=== PATIENT | female | born 1950 | race Caucasian/White ===

== ENCOUNTER 2016-12-29 20:07 | Emergency (ER) | payer MEDICARE, MEDICAID ==
[~2016-12-29] VITALS: Ht 160 cm; Wt 60.0 kg
[2016-12-29] MEDS ORDERED: ASPI1CPM PO (20:16)
[2016-12-29] MEDS ORDERED: PROMETHAZINE 25 MG in IV NORMAL SALINE 50ML 50 ML IV PRN (20:30)
[2016-12-29] MEDS ORDERED: PROMETHAZINE 25 MG/ML VIAL IV ONE (20:53)
[2016-12-29] MEDS ORDERED: IV NORMAL SALINE 50ML 50 ML ONE (20:53)
[2016-12-29 20:59] LABS: MEAN CORPUSCULAR HEMOGLOBIN 33 pg (25-35); MEAN CORPUSCULAR VOLUME 93 fL (79-100)
[2016-12-29] MEDS ORDERED: ONDANSETRON PF 4 MG/2 ML VIAL. IV ONE (21:00)
[2016-12-29] MEDS ORDERED: IV NORMAL SALINE 1,000ML 1,000 ML IV SCH (21:00)
[2016-12-29 21:02] LABS: HEMATOCRIT 30.1 % (36.0-47.0); HEMOGLOBIN 10.5 g/dL (12.0-15.5); RED BLOOD COUNT 3.23 x10^6/uL (3.50-5.40); WHITE BLOOD COUNT 9.3 x10^3/uL (4.0-11.0)
[2016-12-29 21:03] LABS: MEAN CORPUSCULAR HGB CONC 35 g/dL (31-37); PLATELET COUNT 414 x10^3/uL (140-400)
[2016-12-29 21:13] LABS: ALBUMIN 2.9 g/dL (3.4-5.0); ALBUMIN/GLOBULIN RATIO 0.8 (1.0-1.7); CALCIUM 9.1 mg/dL (8.5-10.1); CREATININE 1.3 mg/dL (0.6-1.0); GFR 40.7; TOTAL BILIRUBIN 15.5 mg/dL (0.2-1.0); TOTAL PROTEIN 6.7 g/dL (6.4-8.2)
[2016-12-29 21:19] LABS: POTASSIUM 2.9 mmol/L (3.5-5.1)
[2016-12-29 21:36] LABS: % LYMPHS 20 % (24-48); % MONOS 2 % (0-10); % SEGS 78 % (35-66); PLT ESTIMATE ADEQUATE (ADEQUATE)
[2016-12-29] MEDS ORDERED: POTASSIUM CHLORIDE 20 MEQ TABLET.ER. PO ONE (22:00)
--- NOTE | 2016-12-29 22:03 | PHYS DOC ---
General Chief Complaint: ABDOMINAL PAIN Stated Complaint: N/V Time Seen by MD: 20:15 Source: patient Exam Limitations: other (vague historian) Problems: History of Present Illness Initial Comments Pt is 66/F to ED c/o n/v. Pt states that earlier tonight she was playing bingo and developed sudden onset epigastric pain with N/V. States she vomitted many times and called EMS. No travel/bad food exposure, no heavy etoh intake, no known unexplained weight loss. EMS reports approx 500cc emesis on arrival, N/V did settle in ED with zofran/ phenergan. No diarrhea or urinary symptoms, no fever/chills/myalgias. Timing/Duration: 1 hour Severity: severe Modifying Factors: worse with eating, improves with medication Associated Symptoms: diaphoresis, malaise, nausea/vomiting, weakness, other Allergies: Coded Allergies: No Known Drug Allergies (Unverified , 12/29/16) Past Medical History Medical History: other (CVA, CAD) Surgical History: cholecystectomy (heart cath 2014) Social History Smoker: non-smoker Alcohol: none Drugs: none Review of Systems Constitutional: denies chills, diaphoresisdenies fever, malaise Respiratory: denies cough, denies shortness of breath, denies wheezing Cardiovascular: denies chest pain, denies palpitations, denies syncope Gastrointestinal: see HPI Genitourinary: denies discharge, denies dysuria, denies frequency Musculoskeletal: denies back pain, denies joint swelling, denies neck pain Psychiatric/Neurological: denies headache, denies numbness, denies paresthesia Hematologic/Lymphatic: denies blood clots, denies easy bleeding, denies easy bruising Physical Exam General Appearance: severe distress (jaundiced, intractable n/v) Eyes: bilateral eye EOMI, bilateral eye PERRL, bilateral eye scleral icterus Ear, Nose, Throat: hearing grossly normal, normal ENT inspection (dry membranes ), normal pharynx Neck: non-tender, supple Respiratory: normal breath sounds, no respiratory distress Cardiovascular: normal peripheral pulses, regular rate, rhythm Gastrointestinal: normal bowel sounds, soft (mildly distended, generalized TTP without focality no r/g/mass, incidental 5cm diam reducible umbilical hernia) Back: no CVA tenderness, no vertebral tenderness Extremities: non-tender, normal inspection Neurologic/Psychiatric: 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 Acute Hepatitis panel added to labs, CT abd/pel ordered. Pt will have prolonged ED course due to Radiology. PATIENT: ABRIL NAGY ACCOUNT: [id number] : 1950 LOCATION: ER AGE: 66 SEX: F EXAM STATUS: PRE ER ORD. PHYSICIAN: RAD REYEZ DO REASON: N/V, elev LFT's, jaundice PROCEDURE: CT ABDOMEN PELVIS WO CONTRAST PROCEDURE CT abdomen and pelvis without contrast 12/29/2016. HISTORY Elevated liver enzymes and jaundice. Nausea and vomiting. TECHNIQUE Helical noncontrast images were obtained. Exposure: One or more of the following individualized dose reduction techniques were utilized for this exam: 1. Automated exposure control. 2. Adjustment of the mA and/or kV according to patient size. 3. Use of iterative reconstruction technique. COMPARISON FINDINGS The lung bases are clear. There are probably some small liver cysts. The biliary tree is dilated down toward the head of the pancreas. There appears to be abrupt tapering at this level. No cause for obstruction is identified. The spleen appears normal. The kidneys show no significant mass or obstruction. There is probably a small angio Costa lipoma on the right. No adrenal or pancreatic abnormality is identified. There is no apparent retroperitoneal or mesenteric adenopathy. A small fat containing hernia is shown at the emboli kiss. Images through the pelvis show no apparent abnormality of the distal ureters or bladder. No pelvic or inguinal adenopathy is seen. There is no apparent pelvic soft tissue mass or inflammatory process. IMPRESSION Dilated biliary tree showing abrupt caliber change near the head of the pancreas without identified cause for obstruction. Further evaluation with MRI/MRCP may be useful. Electronically signed by: Fernie Robles (Dec 29, 2016 22:49:34) DICTATED AND SIGNED BY: FERNIE ROBLES Jr, MD DATE: 12/29/16 [id number] CC: DARREN WAITE MD; RAD REYEZ DO ~ Pertinent labs: Hb 10.5, Plt 414, d-dimer 0.28, Na 134, K+ 2.9 (40 meq KCL PO in ED), BUN 21, Cr 1.3, AST 146, ALT 179, Alb 2.9, lactic acid 1.9, acute hepatitis panel pending. Pt received morphine, zofran, phenergan, and 1L NS IV in ED. N/V resolved, pt resting comfortably. Agreeable to inpt treatment/transfer to [facility]. IMPRESSIONS: Hepatobiliary obstruction NOS Intractable N/V Hypokalemia Hyperbilirubinemia w/elevated transaminases Hypovolemia Moderate Malnutrition 2331: Pt discussed with Dr Mcneil who accepts telemetry admission for further evaluation and treatment. Departure Time of Disposition: 00:13 Disposition: 05 XFER OTHER Diagnosis: hepatobiliary obstruction, abdominal pain with N/V Condition: STABLE Additional Instructions: EMS transfer to [facility] Dr Mcneil is accepting. RAD REYEZ DO Dec 29, 2016 22:03
--- NOTE | 2016-12-29 22:50 | RAD ---
PROCEDURE CT abdomen and pelvis without contrast 12/29/2016. HISTORY Elevated liver enzymes and jaundice. Nausea and vomiting. TECHNIQUE Helical noncontrast images were obtained. Exposure: One or more of the following individualized dose reduction techniques were utilized for this exam: 1. Automated exposure control. 2. Adjustment of the mA and/or kV according to patient size. 3. Use of iterative reconstruction technique. COMPARISON FINDINGS The lung bases are clear. There are probably some small liver cysts. The biliary tree is dilated down toward the head of the pancreas. There appears to be abrupt tapering at this level. No cause for obstruction is identified. The spleen appears normal. The kidneys show no significant mass or obstruction. There is probably a small angio Costa lipoma on the right. No adrenal or pancreatic abnormality is identified. There is no apparent retroperitoneal or mesenteric adenopathy. A small fat containing hernia is shown at the emboli kiss. Images through the pelvis show no apparent abnormality of the distal ureters or bladder. No pelvic or inguinal adenopathy is seen. There is no apparent pelvic soft tissue mass or inflammatory process. IMPRESSION Dilated biliary tree showing abrupt caliber change near the head of the pancreas without identified cause for obstruction. Further evaluation with MRI/MRCP may be useful. Electronically signed by: Yoan Robles (Dec 29, 2016 22:49:34)
[2016-12-29 23:46] LABS: BARBITURATES NEG (NEG); BENZODIAZEPINES NEG (NEG); CANNABINOIDS NEG (NEG); COCAINE NEG (NEG); METHADONE NEG (NEG); OPIATES NEG (NEG); PHENCYCLIDINE NEG (NEG)
[2016-12-29 23:48] LABS: BACTERIA,URINE MANY /HPF (0-FEW); BILIRUBIN,URINE LARGE (NEG); CLARITY,URINE CLOUDY; COLOR,URINE YELLOW; GLUCOSE,URINE NEG (NEG); NITRITE,URINE NEG (NEG); SQUAMOUS EPITHELIAL CELL,UR FEW /LPF; UROBILINOGEN,URINE 0.2 mg/dL (0.2 mg/dL); WBC,URINE >40 /HPF (0-4)
--- NOTE | 2016-12-29 23:49 | ACF ---
Admission Criteria Forms HYPONATREMIA; HYPERNATREMIA; HYPOKALEMIA; HYPERKALEMIA; HYPOCALCEMIA; HYPERCALCEMIA Clinical Indications for Inpatient Care (Place 'X' for any and all applicable criteria): Ongoing inpatient care may be indicated for ANY ONE of the following [G](1)(2)(3 )(5): [ ]I. Hyponatremia with ANY ONE of the following: [ ]a) Sodium less than 130 mEq/L (mmol/L) (new) (6)(22) [ ]b) Sodium less than 135 mEq/L (mmol/L) with ANY ONE of the following: [ ]i) Severe medical etiology requiring inpatient management (eg, heart failure, hypovolemia) [ ]ii) Altered mental status [ ]iii) Seizures [ ]II. Hypernatremia with ANY ONE of the following: [ ]a) Sodium greater than 155 mEq/L (mmol/L) [ ]b) Sodium greater than 150 mEq/L (mmol/L) with ANY ONE of the following: [ ] i) Altered mental status [ ]ii) Seizures [ ]iii) Severe medical etiology (eg, hypovolemia, diabetes insipidus) [ ]iv) Severe weakness [ ]v) Severe medical etiology (eg, hemolysis, infection, drug overdose) [X]III. Hypokalemia with ANY ONE of the following: [ ]a) Potassium less than 2.5 mEq/L (mmol/L) despite outpatient and emergency treatment [X]b) Potassium less than 3.0 mEq/L (mmol/L) with ANY ONE of the following: [ ]i) Weakness [ ]ii) Cardiac abnormality (eg, arrhythmia, conduction disturbance) [ ]iii) Cardiac ischemia [ ]iv) Ileus [ ]v) Ongoing medical cause requiring inpatient management. ( e.g., acute renal wasting, SIADH) [X]vi) Other severe symptoms [ ] IV. Hyperkalemia with ANY ONE of the following: [ ]a) Potassium greater than 6.5 mEq/L (mmol/L) [ ]b) Potassium greater than 5 mEq/L (mmol/L) with ANY ONE of the following: [ ]i) Severe ECG findings [H] [ ]ii) Acute worsening of renal failure (creatinine greater than 2.5 mg/dL (221 micromoles/L) or significant elevation for age and size) [ ] V. Hypocalcemia with ANY ONE of the following: [ ]a) Calcium less than 7 mg/dL (1.75 mmol/L) despite outpatient and emergency treatment(19) [ ]b) Calcium less than 8 mg/dL (2 mmol/L) with significant symptoms or findings; examples include: [ ]i) Cardiac abnormality (eg, arrhythmia or conduction disturbance) [ ]ii) Altered mental status [ ]iii) Seizures [ ]iv) Breathing difficulty [ ]v) Muscle spasms [ ]. Hypercalcemia with ANY ONE of the following: [ ]a) Calcium greater than 14 mg/dL (3.5 mmol/L) [ ]b) Calcium greater than 12 mg/dL (3 mmol/L) with ANY ONE of the following: [ ]i) Significant dehydration or hypovolemia as indicated by ANY ONE of the following(2): [ ]1. Clinically significant dehydration as indicated by ANY ONE of the following: [ ]A. Acute loss of weight from baseline (5% of body weight in adults, 9% in pediatric patients) [ ]B. Hemodynamic instability [ ]C. Acute renal failure [ ]D. Serum sodium greater than 150 mEq/L (mmol/L) [ ]2) Dehydration that is persistent indicated by ALL of the following: [ ]A. Oral rehydration therapy not tolerated or insufficient to adequately correct dehydration [ ]B. Appropriate intravenous treatment (eg, fluids ) does not readily correct dehydration ie, after 12 to 24 hours of treatment) [ ]ii) Significant symptoms or findings; examples include: [ ]1) Altered mental status [ ]2) Cardiac abnormality (eg, arrhythmia, conduction disturbance) [ ]3) Cardiac abnormality (eg, arrhythmia, conduction disturbance) The original [employer] [email or web address] content created by [employer] has been revised. The portions of the content which have been revised are identified through the use of italic text or in bold, and [email or web address] has neither reviewed nor approved the modified material. All other unmodified content is copyright [facility] [email or web address] Please see references footnoted in the original [facility] [employer] edition 2016 Admission Criteria Met?: Yes UDAY BROYD Dec 29, 2016 23:49
[2016-12-29 23:50] LABS: AMPHETAMINE/METHAMPHETAMINE NEG (NEG)
[2016-12-30 00:30] VITALS: BP 101/56
--- NOTE | 2016-12-30 09:21 | RAD ---
Acute abdominal series to include a PA chest radiograph 12/29/2016 Clinical history: Nausea and vomiting with weakness. An AP portable erect digital radiograph of the chest was obtained. Supine and erect AP digital radiographs of the abdomen/pelvis were obtained. The cardiac silhouette is borderline enlarged. Thoracic aorta is mildly tortuous. No acute pulmonary infiltrate is seen. No pleural effusion or pneumothorax is noted. The abdominal bowel gas pattern is nonobstructive. A moderate amount of stool is seen within the colon. There is no evidence of free air. Atherosclerotic calcification of the abdominal aorta and its branches is noted. There is diffuse osteopenia of the visualized bony structures. Degenerative changes are seen involving the thoracic and lumbar spine and both hips. Impression: Nonobstructive bowel gas pattern.
[2016-12-30 22:22] LABS: HCV ANTIBODY <0.1 s/co ratio (0.0-0.9); HEP A IGM ABDY Negative (Negative)
--- NOTE | 2016-12-31 10:45 | EKG ---
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
== END 2016-12-30 00:39 | disposition short-term general hospital (02) ==
LOC: ER 20:07
DX: K83.1 Obstruction of bile duct (principal); R10.13 Epigastric pain; R11.2 Nausea with vomiting, unspecified; E86.1 Hypovolemia; E87.6 Hypokalemia; E44.0 Moderate protein-calorie malnutrition; E80.6 Other disorders of bilirubin metabolism; I25.10 Atherosclerotic heart disease of native coronary artery without angina pectoris; Z86.73 Personal history of transient ischemic attack (TIA), and cerebral infarction without residual deficits; Z90.49 Acquired absence of other specified parts of digestive tract
CPT/HCPCS: 36415; 74022; 74176; 80053; 80074; 80305; 80320; 81001; 82550; 83605; 83690; 83880; 84484; 85007; 85027; 85379; 87040; 87086; 93005; 96365; 96366; 96375; 99285; J2405; J2550; G0480; G0481; J7030

== ENCOUNTER 2017-10-02 16:10 | Inpatient (IN) | payer MEDICAID, MEDICARE ==
[~2017-10-02] VITALS: Ht 160 cm; Wt 60.0 kg
[~2017-10-02 16:10] MED LIST: ASPI1CPM9 PO
[2017-10-02 16:56] LABS: BASO % 0 % (0-3); EOS # 0.1 x10^3/uL (0.0-0.7); EOS % 2 % (0-3); HEMATOCRIT 28.2 % (36.0-47.0); HEMOGLOBIN 9.5 g/dL (12.0-15.5); LYMPH # 1.2 x10^3/uL (1.0-4.8); LYMPH % 19 % (24-48); MEAN CORPUSCULAR HEMOGLOBIN 37 pg (25-35); MEAN CORPUSCULAR HGB CONC 34 g/dL (31-37); MEAN CORPUSCULAR VOLUME 110 fL (79-100); MONO # 0.6 x10^3/uL (0.0-1.1); MONO % 9 % (0-9); NEUT # 4.5 x10^3uL (1.8-7.7); NEUT % 70 % (31-73); PLATELET COUNT 279 x10^3/uL (140-400); RED BLOOD COUNT 2.57 x10^6/uL (3.50-5.40); RED CELL DISTRIBUTION WIDTH 19.8 % (11.5-14.5); WHITE BLOOD COUNT 6.4 x10^3/uL (4.0-11.0)
[2017-10-02 17:11] LABS: ALBUMIN 2.8 g/dL (3.4-5.0); CALCIUM 8.2 mg/dL (8.5-10.1); CREATININE 0.9 mg/dL (0.6-1.0); GFR 62.1; POTASSIUM 3.6 mmol/L (3.5-5.1); TOTAL BILIRUBIN 1.3 mg/dL (0.2-1.0); TOTAL PROTEIN 5.7 g/dL (6.4-8.2)
--- NOTE | 2017-10-02 17:21 | RAD ---
Indication: Follow-up for pleural effusions. Technique: CT chest without IV contrast with multiplanar reformats. Comparison: CT abdomen and pelvis from 12/29/2016. Findings: Left-sided Chemo-Port is noted with its tip in the SVC. Heart is moderately enlarged in size. Trace pericardial effusion. Moderate right and small left pleural effusion. Diffuse coronary artery disease noted. No axillary, mediastinal adenopathy. Evaluation of hilar lymph node limited due to lack of IV contrast. Bilateral interlobular septal thickening noted with diffuse interstitial hazy opacities. Subsegmental atelectasis noted in the lung bases. A pneumothorax. Stable low attenuating lesion is seen in subcapsular segment 2. Left-sided pneumobilia noted. Adenoid glands show no nodularity. Surgical clips are seen in the nisreen hepatis. Chronic fracture of the right clavicle. No suspicious bony lesions. Impression: 1. Moderate right and small left pleural effusion. 2. Bibasilar subsegmental atelectasis. Underlying pneumonia not ruled out. 3. Moderate cardiomegaly with findings of interstitial pulmonary edema. 4. Mild left-sided pneumobilia. Correlate with prior biliary intervention. 5. Stable segment 2 subcapsular low attenuating lesion, nonspecific may represent cystic biliary hamartoma, hemangioma or metastasis if patient has history of known malignancy. PQRS Compliance Statement: One or more of the following individualized dose reduction techniques were utilized for this examination: 1. Automated exposure control 2. Adjustment of the mA and/or kV according to patient size 3. Use of iterative reconstruction technique
[2017-10-02] MEDS ORDERED: FUROSEMIDE 40 MG/4 ML VIAL IVP ONE (17:30)
--- NOTE | 2017-10-02 17:38 | PHYS DOC ---
Past History Past Medical History: Anxiety, CAD, CVA, Diabetes, Hypotension, Stroke Past Surgical History: Cholecystectomy Alcohol Use: None Drug Use: None Adult General Chief Complaint Chief Complaint: SHORTNESS OF BREATH HPI HPI Patient is a 67 year old F who presents with shortness of breath over the past several weeks but much worse today. She feels that her symptoms are worse with minimal activity and improved with rest. She denies feel that her symptoms are worse when lying flat. She does feel that she has had more than 10 pounds weight gain over the past 1-2 weeks. She states that she has had increased swelling in her legs. She recently discontinued chemotherapy for her pancreatic cancer. She did have a Whipple surgery done in November of last year. Prior to this she was on a water pill, she is unsure which medication this was. Since that time she has not been on a water pill that she knows of. Review of Systems Review of Systems Constitutional: Denies fever or chills [] Eyes: Denies change in visual acuity, redness, or eye pain [] HENT: Denies nasal congestion or sore throat [] Respiratory: Negative except history of present illness Cardiovascular: No additional information not addressed in HPI [] GI: Denies abdominal pain, nausea, vomiting, bloody stools or diarrhea [] : Denies dysuria or hematuria [] Musculoskeletal: Denies back pain or joint pain [] Integument: Denies rash or skin lesions [] Neurologic: Denies headache, focal weakness or sensory changes [] Endocrine: Denies polyuria or polydipsia [] All other systems were reviewed and found to be within normal limits, except as documented in this note. Family History Family History No pertinent family medical history was reported Current Medications Current Medications Current medications were reviewed Current Medications Medications (Trade) Dose Ordered Sig/Alice Start Time Stop Time Status Last Admin Dose Admin Furosemide (Lasix) 40 mg 1X ONCE 10/02/17 17:30 10/02/17 17:31 10/02/17 17:05 40 MG Allergies Allergies Allergies Coded Allergies Type Severity Reaction Last Updated Verified No Known Drug Allergies 12/29/16 No Physical Exam Physical Exam Constitutional: Well developed, well nourished, no acute distress, non-toxic appearance. [] HENT: Normocephalic, atraumatic Eyes: EOMI, conjunctiva normal, no discharge. [] Neck: Normal range of motion, no tenderness, supple, no stridor. [] Cardiovascular:Heart rate regular rhythm, 4+ pitting edema in the lower extremities bilaterally to the knee Lungs & Thorax: Diminished, mild wheezing with moderate crackles noted bilaterally Abdomen: Bowel sounds normal, soft, no tenderness, no masses, no pulsatile masses. [] Skin: Warm, dry, no erythema, no rash. [] Extremities: No tenderness, no cyanosis, no clubbing, ROM intact, no edema. [] Neurologic: Alert and oriented X 3, normal motor function, normal sensory function, no focal deficits noted. [] Psychologic: Affect normal, judgement normal, mood normal. [] Current Patient Data Vital Signs Vital Signs Date Time Temp Pulse Resp B/P (MAP) Pulse Ox O2 Delivery O2 Flow Rate FiO2 10/02/17 17:12 64 20 162/87 (112) 98 Nasal Cannula 2.0 10/02/17 16:21 98.2 Lab Results Laboratory Tests Test 10/02/17 16:42 White Blood Count 6.4 x10^3/uL (4.0-11.0) Red Blood Count 2.57 x10^6/uL (3.50-5.40) L Hemoglobin 9.5 g/dL (12.0-15.5) L Hematocrit 28.2 % (36.0-47.0) L Mean Corpuscular Volume 110 fL (79-100) H Mean Corpuscular Hemoglobin 37 pg (25-35) H Mean Corpuscular Hemoglobin Concent 34 g/dL (31-37) Red Cell Distribution Width 19.8 % (11.5-14.5) H Platelet Count 279 x10^3/uL (140-400) Neutrophils (%) (Auto) 70 % (31-73) Lymphocytes (%) (Auto) 19 % (24-48) L Monocytes (%) (Auto) 9 % (0-9) Eosinophils (%) (Auto) 2 % (0-3) Basophils (%) (Auto) 0 % (0-3) Neutrophils # (Auto) 4.5 x10^3uL (1.8-7.7) Lymphocytes # (Auto) 1.2 x10^3/uL (1.0-4.8) Monocytes # (Auto) 0.6 x10^3/uL (0.0-1.1) Eosinophils # (Auto) 0.1 x10^3/uL (0.0-0.7) Basophils # (Auto) 0.0 x10^3/uL (0.0-0.2) Sodium Level 144 mmol/L (136-145) Potassium Level 3.6 mmol/L (3.5-5.1) Chloride Level 111 mmol/L (98-107) H Carbon Dioxide Level 27 mmol/L (21-32) Anion Gap 6 (6-14) Blood Urea Nitrogen 12 mg/dL (7-20) Creatinine 0.9 mg/dL (0.6-1.0) Estimated GFR (Cockcroft-Gault) 62.1 BUN/Creatinine Ratio 13 (6-20) Glucose Level 109 mg/dL (70-99) H Calcium Level 8.2 mg/dL (8.5-10.1) L Total Bilirubin 1.3 mg/dL (0.2-1.0) H Aspartate Amino Transferase (AST) 21 U/L (15-37) Alanine Aminotransferase (ALT) 21 U/L (14-59) Alkaline Phosphatase 70 U/L (46-116) Total Protein 5.7 g/dL (6.4-8.2) L Albumin 2.8 g/dL (3.4-5.0) L Albumin/Globulin Ratio 1.0 (1.0-1.7) EKG EKG [] Radiology/Procedures Radiology/Procedures CT chest without contrast Impressions: Indication: Follow-up for pleural effusions. Technique: CT chest without IV contrast with multiplanar reformats. Comparison: CT abdomen and pelvis from 12/29/2016. Findings: Left-sided Chemo-Port is noted with its tip in the SVC. Heart is moderately enlarged in size. Trace pericardial effusion. Moderate right and small left pleural effusion. Diffuse coronary artery disease noted. No axillary, mediastinal adenopathy. Evaluation of hilar lymph node limited due to lack of IV contrast. Bilateral interlobular septal thickening noted with diffuse interstitial hazy opacities. Subsegmental atelectasis noted in the lung bases. A pneumothorax. Stable low attenuating lesion is seen in subcapsular segment 2. Left-sided pneumobilia noted. Adenoid glands show no nodularity. Surgical clips are seen in the nisreen hepatis. Chronic fracture of the right clavicle. No suspicious bony lesions. Impression: 1. Moderate right and small left pleural effusion. 2. Bibasilar subsegmental atelectasis. Underlying pneumonia not ruled out. 3. Moderate cardiomegaly with findings of interstitial pulmonary edema. 4. Mild left-sided pneumobilia. Correlate with prior biliary intervention. 5. Stable segment 2 subcapsular low attenuating lesion, nonspecific may represent cystic biliary hamartoma, hemangioma or metastasis if patient has history of known malignancy. Course & Med Decision Making Course & Med Decision Making Pertinent Labs and Imaging studies reviewed. (See chart for details) Dr. Montez was contacted by phone. Her case was reviewed. He recommended admission to [facility]. She was given a dose of Lasix for 2 mg IV in the emergency room as well as 3 total breathing treatments given by EMS. Dragon Disclaimer Dragon Disclaimer This electronic medical record was generated, in whole or in part, using a voice recognition dictation system. Departure Departure: Impression: Primary Impression: Respiratory failure Additional Impressions: Bilateral pleural effusion Pericardial effusion Anemia Disposition: 09 ADMITTED INPATIENT Admitting Physician: Rivera Montez Referrals: RIVERA MONTEZ MD (PCP) Problem Qualifiers Primary Impression: Respiratory failure Chronicity: acute Respiratory failure complication: hypoxia Qualified Codes : J96.01 - Acute respiratory failure with hypoxia Additional Impressions: Anemia Anemia type: unspecified type Qualified Codes: D64.9 - Anemia, unspecified RIVERA GALVEZ MD Oct 02, 2017 17:38
[2017-10-02] MEDS ORDERED: IPRATRPIUM/ALBUTEROL 0.5/2.5MG 3 ML NEBU. NEB SCH (18:00)
[2017-10-02] MEDS ORDERED: ONDANSETRON PF 4 MG/2 ML VIAL. IV PRN (19:15)
[2017-10-02] MEDS ORDERED: ACETAMINOPHEN 325 MG TABLET PO PRN (19:15)
[2017-10-02 19:22] VITALS: BP 170/75
[2017-10-02 20:32] VITALS: BP 169/71
[2017-10-02] MEDS: cefTRIAXone IV Push 1 GM VIAL. IVP SCH (20:46)
[2017-10-02] MEDS: IPRATRPIUM/ALBUTEROL 0.5/2.5MG 3 ML NEBU. NEB SCH (21:24)
[2017-10-02 21:27] LABS: INFLUENZA A PATIENT NEGATIVE (NEGATIVE); INFLUENZA B PATIENT NEGATIVE (NEGATIVE)
[2017-10-02] MEDS: LACTOBACILLUS RHAMNOSUS GG 1 CAPSULE. PO SCH (21:35)
[2017-10-02] MEDS: ENOXAPARIN 40 MG/0.4 ML DISP.SYRIN. SQ SCH (21:35)
[2017-10-02 21:46] VITALS: BP 156/71
[2017-10-02 22:35] VITALS: BP 159/67
[2017-10-02 23:13] VITALS: BP 144/71
[2017-10-03] VITALS (9 sets, daily range): BP systolic 140–170; BP diastolic 39–71
[2017-10-03] MEDS ORDERED: METF500T4 PO (00:26)
[2017-10-03] MEDS ORDERED: CETI10TA16 PO (00:26)
[2017-10-03] MEDS ORDERED: LACT1CAP6 PO (00:26)
[2017-10-03] MEDS ORDERED: METO25TA4 PO (00:26)
[2017-10-03] MEDS ORDERED: HYDR-2758 PO (00:26)
[2017-10-03] MEDS ORDERED: ASPI-630 PO (00:26)
[2017-10-03] MEDS ORDERED: ATOR20TA58 PO (00:26)
[2017-10-03] MEDS: IPRATRPIUM/ALBUTEROL 0.5/2.5MG 3 ML NEBU. NEB SCH ×3 (06:10→21:00)
[2017-10-03 06:47] LABS: BASO % 0 % (0-3); EOS # 0.1 x10^3/uL (0.0-0.7); EOS % 2 % (0-3); HEMATOCRIT 25.7 % (36.0-47.0); HEMOGLOBIN 8.9 g/dL (12.0-15.5); LYMPH # 1.4 x10^3/uL (1.0-4.8); LYMPH % 24 % (24-48); MEAN CORPUSCULAR HEMOGLOBIN 37 pg (25-35); MEAN CORPUSCULAR HGB CONC 35 g/dL (31-37); MEAN CORPUSCULAR VOLUME 108 fL (79-100); MONO # 0.8 x10^3/uL (0.0-1.1); MONO % 13 % (0-9); NEUT # 3.6 x10^3uL (1.8-7.7); NEUT % 61 % (31-73); PLATELET COUNT 243 x10^3/uL (140-400); RED BLOOD COUNT 2.39 x10^6/uL (3.50-5.40); RED CELL DISTRIBUTION WIDTH 19.7 % (11.5-14.5)
--- NOTE | 2017-10-03 06:54 | EKG ---
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
[2017-10-03 07:06] LABS: ALBUMIN 2.4 g/dL (3.4-5.0); ALBUMIN/GLOBULIN RATIO 0.9 (1.0-1.7); MAGNESIUM 1.7 mg/dL (1.8-2.4); POTASSIUM 3.2 mmol/L (3.5-5.1); TOTAL BILIRUBIN 0.9 mg/dL (0.2-1.0); TOTAL PROTEIN 5.2 g/dL (6.4-8.2)
[2017-10-03] MEDS: LACTOBACILLUS RHAMNOSUS GG 1 CAPSULE. PO SCH ×2 (08:19→20:29)
[2017-10-03] MEDS: FUROSEMIDE 40 MG/4 ML VIAL IVP SCH (08:19)
--- NOTE | 2017-10-03 09:04 | PDOC2 ---
KERLINE XIAO HRIS MANAGER 10/03/17 0903: CONSULT Date of Admission DATE: 10/03/17 TIME: 09:02 Reason for Consult: chf Problem List Problems Medical Problems: (1) Anemia Status: Acute (2) Bilateral pleural effusion Status: Acute (3) Pericardial effusion Status: Acute (4) Respiratory failure Status: Acute History of Present Illness Ms Dennison is a 67 year old female who presented to the ED with complaints of dyspnea. She reports a couple weeks of chills and shortness of breath that have steadily progressed. She denies any orthopnea or PND and sleeps with one pillow. She does complain of edema which she reports is better since her last hospitalization but did report a 10 lb weight gain to the ED provider. She underwent a whipple last November-December. Prior to that she was on diuretics but she reports her meds were all changed at that time and the diuretic stopped. She denies chest discomfort, palpitations, lightheadedness or syncope. Past Medical History Anxiety, CAD, CVA, Diabetes, Hypotension, Stroke, pancreatic cancer, cataracts, CHF, hyperlipidemia, hypertension. she reports history of a heart cath but is unclear if any intervention was necessary. Past Surgical History Cholecystectomy, whipple Family History CHF, diabetes, colon cancer Social History no ETOH or illicit drugs Current Medications Current Medications Furosemide (Lasix) 40 mg 1X ONCE IVP Last administered on 10/02/17at 17:05; Start 10/02/17 at 17:30; Stop 10/02/17 at 17:31; Status DC Albuterol/ Ipratropium (Duoneb) 3 ml RTQID NEB ; Start 10/02/17 at 18:00; Stop 10/02/17 at 19:44; Status DC Acetaminophen (Tylenol) 650 mg PRN Q6HRS PRN PO Headaches, Temp > 101.5F; Start 10/02/17 at 19:15 Ondansetron HCl (Zofran) 4 mg PRN Q8HRS PRN IV NAUSEA/VOMITING; Start 10/02/17 at 19:15 Furosemide (Lasix) 40 mg DAILY IVP Last administered on 10/03/17at 08:19; Start 10/03/17 at 09:00 Ceftriaxone Sodium 1 gm/ Sodium Chloride 50 ml @ 100 mls/hr Q24H IV ; Start 08/09 at 19:30; Status UNV Levofloxacin/ Dextrose 100 ml @ 100 mls/hr Q24H IV Last administered on at 20:47; Start 10/02/17 at 20:00 Enoxaparin Sodium (Lovenox) 40 mg Q24H SQ Last administered on 10/02/17at 21:35 ; Start 10/02/17 at 21:00 Albuterol/ Ipratropium (Duoneb) 3 ml TID NEB Last administered on 10/03/17at 06: 10; Start 10/02/17 at 21:00 Ceftriaxone Sodium (Rocephin) 1 gm Q24H IVP Last administered on 10/02/17at 20: 46; Start 10/02/17 at 20:00 Lactobacillus Rhamnosus (Culturelle) 1 cap BID PO Last administered on at 08:19; Start 10/02/17 at 21:00 Active Scripts Active Reported Hydrocodone-Apap 5-325 (Hydrocodone Bit/Acetaminophen) 1 Each Tablet 1-2 Tab PO PRN Q4-6HRS PRN Probiotic (Lactobacillus Acidophilus) 1 Each Capsule 1 Each PO DAILY Metformin Hcl 500 Mg Tablet 500 Mg PO BIDWMEALS Metoprolol Tartrate 25 Mg Tablet 12.5 Mg PO BID Cetirizine Hcl 10 Mg Tablet 10 Mg PO DAILY Atorvastatin Calcium 20 Mg Tablet 20 Mg PO QHS Aspirin 81 Mg Tab.chew 81 Mg PO DAILY Allergies: Coded Allergies: No Known Drug Allergies (Unverified , 12/29/16) Review of System as per HPI General: Alert, Oriented X3, Cooperative, No acute distress HEENT: Atraumatic, EOMI Lungs: Other (basilar crackles) Heart: Regular rate, Normal S1, Normal S2, Other (no gallops, clicks or rubs) Abdomen: Normal bowel sounds, Soft Extremities: Other (3+ edema bilateral lower extremities) Neuro: Normal speech, Strength at 5/5 X4 ext Psych/Mental Status: Mental status NL, Mood NL, Other (poor historian) VITALS Vital Signs Date Time Temp Pulse Resp B/P (MAP) Pulse Ox O2 Delivery O2 Flow Rate FiO2 10/03/17 05:55 94 Nasal Cannula 2.0 10/03/17 05:17 98.7 66 22 146/60 (88) Labs Laboratory Tests Test 10/02/17 16:42 10/02/17 19:29 10/02/17 19:53 10/02/17 20:55 White Blood Count 6.4 x10^3/uL (4.0-11.0) Red Blood Count 2.57 x10^6/uL (3.50-5.40) Hemoglobin 9.5 g/dL (12.0-15.5) Hematocrit 28.2 % (36.0-47.0) Mean Corpuscular Volume 110 fL (79-100) Mean Corpuscular Hemoglobin 37 pg (25-35) Mean Corpuscular Hemoglobin Concent 34 g/dL (31-37) Red Cell Distribution Width 19.8 % (11.5-14.5) Platelet Count 279 x10^3/uL (140-400) Neutrophils (%) (Auto) 70 % (31-73) Lymphocytes (%) (Auto) 19 % (24-48) Monocytes (%) (Auto) 9 % (0-9) Eosinophils (%) (Auto) 2 % (0-3) Basophils (%) (Auto) 0 % (0-3) Neutrophils # (Auto) 4.5 x10^3uL (1.8-7.7) Lymphocytes # (Auto) 1.2 x10^3/uL (1.0-4.8) Monocytes # (Auto) 0.6 x10^3/uL (0.0-1.1) Eosinophils # (Auto) 0.1 x10^3/uL (0.0-0.7) Basophils # (Auto) 0.0 x10^3/uL (0.0-0.2) D-Dimer (Akilah) 0.57 mg/L (0.00-0.50) Sodium Level 144 mmol/L (136-145) Potassium Level 3.6 mmol/L (3.5-5.1) Chloride Level 111 mmol/L (98-107) Carbon Dioxide Level 27 mmol/L (21-32) Anion Gap 6 (6-14) Blood Urea Nitrogen 12 mg/dL (7-20) Creatinine 0.9 mg/dL (0.6-1.0) Estimated GFR (Cockcroft-Gault) 62.1 BUN/Creatinine Ratio 13 (6-20) Glucose Level 109 mg/dL (70-99) Calcium Level 8.2 mg/dL (8.5-10.1) Total Bilirubin 1.3 mg/dL (0.2-1.0) Aspartate Amino Transf (AST/SGOT) 21 U/L (15-37) Alanine Aminotransferase (ALT/SGPT) 21 U/L (14-59) Alkaline Phosphatase 70 U/L (46-116) AF-Fbe-V-Type Natriuretic Peptide 46005 pg/mL (0-124) Total Protein 5.7 g/dL (6.4-8.2) Albumin 2.8 g/dL (3.4-5.0) Albumin/Globulin Ratio 1.0 (1.0-1.7) Glucose (Fingerstick) 103 mg/dL (70-99) Lactic Acid Level 1.0 mmol/L (0.4-2.0) Influenza Type A (Rapid) Negative (NEGATIVE) Influenza Type B (Rapid) Negative (NEGATIVE) Test 10/03/17 05:45 10/03/17 07:27 White Blood Count 6.0 x10^3/uL (4.0-11.0) Red Blood Count 2.39 x10^6/uL (3.50-5.40) Hemoglobin 8.9 g/dL (12.0-15.5) Hematocrit 25.7 % (36.0-47.0) Mean Corpuscular Volume 108 fL (79-100) Mean Corpuscular Hemoglobin 37 pg (25-35) Mean Corpuscular Hemoglobin Concent 35 g/dL (31-37) Red Cell Distribution Width 19.7 % (11.5-14.5) Platelet Count 243 x10^3/uL (140-400) Neutrophils (%) (Auto) 61 % (31-73) Lymphocytes (%) (Auto) 24 % (24-48) Monocytes (%) (Auto) 13 % (0-9) Eosinophils (%) (Auto) 2 % (0-3) Basophils (%) (Auto) 0 % (0-3) Neutrophils # (Auto) 3.6 x10^3uL (1.8-7.7) Lymphocytes # (Auto) 1.4 x10^3/uL (1.0-4.8) Monocytes # (Auto) 0.8 x10^3/uL (0.0-1.1) Eosinophils # (Auto) 0.1 x10^3/uL (0.0-0.7) Basophils # (Auto) 0.0 x10^3/uL (0.0-0.2) Sodium Level 146 mmol/L (136-145) Potassium Level 3.2 mmol/L (3.5-5.1) Chloride Level 110 mmol/L (98-107) Carbon Dioxide Level 30 mmol/L (21-32) Anion Gap 6 (6-14) Blood Urea Nitrogen 11 mg/dL (7-20) Creatinine 1.0 mg/dL (0.6-1.0) Estimated GFR (Cockcroft-Gault) 55.0 BUN/Creatinine Ratio 11 (6-20) Glucose Level 74 mg/dL (70-99) Calcium Level 8.0 mg/dL (8.5-10.1) Magnesium Level 1.7 mg/dL (1.8-2.4) Total Bilirubin 0.9 mg/dL (0.2-1.0) Aspartate Amino Transf (AST/SGOT) 19 U/L (15-37) Alanine Aminotransferase (ALT/SGPT) 17 U/L (14-59) Alkaline Phosphatase 60 U/L (46-116) Total Protein 5.2 g/dL (6.4-8.2) Albumin 2.4 g/dL (3.4-5.0) Albumin/Globulin Ratio 0.9 (1.0-1.7) Glucose (Fingerstick) 83 mg/dL (70-99) Images EKG - sinus rhythm, QTC 544, non specific st/t abnormalities CT - Impression: 1. Moderate right and small left pleural effusion. 2. Bibasilar subsegmental atelectasis. Underlying pneumonia not ruled out. 3. Moderate cardiomegaly with findings of interstitial pulmonary edema. 4. Mild left-sided pneumobilia. Correlate with prior biliary intervention. 5. Stable segment 2 subcapsular low attenuating lesion, nonspecific may represent cystic biliary hamartoma, hemangioma or metastasis if patient has history of known malignancy. Assessment/Plan 1. CHF - continue diuresis, check echo for LV function 2. presumed coronary disease - request cardiac cath report from [facility] 3. pneumonia - mgmt per PCP 4. pancreatic cancer s/p whipple s/p chemo - plans to resume chemo, mgmt per PCP 5. hypertension - resume home medications 6. hyperlipidemia - check lipids 7. diabetes - mgmt per PCP 8. prolonged QT -pharmacy to review home meds for contributing factors. Monitor on Tele. Replace potassium and magnesium. Problems: LUIS MANUEL DANIEL MD 10/04/17 0908: CONSULT Allergies: Coded Allergies: No Known Drug Allergies (Unverified , 12/29/16) Assessment/Plan Patient seen and examined 10/03/17 (late entry). Agree with DIRECTOR GIFT's assessment and plan. Continue diuresis for acute on chronic diastolic HF 2D echo showed normal LV function with trace pericardial effusion Continue treatment of pneumonia per IM Thank you for your consultation Problems: KERLINE XIAO APRN Oct 03, 2017 09:03 LUIS MANUEL DAINEL MD Oct 04, 2017 09:08
[2017-10-03] MEDS ORDERED: MAGNESIUM SULFATE 1GM 100 ML IV ONE (10:00)
[2017-10-03] MEDS ORDERED: POTASSIUM CHLORIDE 20 MEQ TABLET.ER. PO ONE (10:00)
--- NOTE | 2017-10-03 14:34 | CARD ---
MR#: [id number] Date of Study: 10/03/2017 Ordering Physician: DARREN WAITE, Referring Physician: DARREN WAITE, Tech: Sandee Palma PALOMA APPROVED REPORT EXAM: Two-dimensional and M-mode echocardiogram with Doppler and color Doppler. Other Information Quality : Good INDICATION Congestive Heart Failure 2D DIMENSIONS RVDd2.2 (2.9-3.5cm)Left Atrium(2D)4.6 (1.6-4.0cm) IVSd1.5 (0.7-1.1cm)Aortic Root(2D)3.1 (2.0-3.7cm) LVDd5.5 (3.9-5.9cm)LVOT Diameter2.2 (1.8-2.4cm) PWd1.6 (0.7-1.1cm)LVDs4.3 (2.5-4.0cm) FS (%) 21.4 %SV63.1 ml LVEF(%)43.0 (>50%) Aortic Valve AoV Peak Johnathon.127.1cm/sAoV VTI26.6cm AO Peak GR.6.5mmHgLVOT Peak Johnathon.111.0cm/s LVOT VTI 24.41cmAO Mean GR.4mmHg ELIZABETH (VMAX)3.19hr6WNN (VTI)3.35cm2 Mitral Valve MV E Qgxpnhuz145.6cm/sMV DECEL SUGT107gs MV A Ggqrlwsy32.7cm/sE/A Ratio1.5 Pulmonary Vein S1 Lcviezaa99.3cm/sD2 Lqzvzcfx40.3cm/s LEFT VENTRICLE The left ventricle is normal size. There is mild concentric left ventricular hypertrophy. Left ventri diandra systolic function is normal. The Ejection Fraction is 50-55%. RIGHT VENTRICLE The right ventricle is normal size. The right ventricular systolic function is normal. ATRIA The left atrium is mildly dilated. The right atrium size is normal. The interatrial septum is intact with no evidence for an atrial septal defect or patent foramen ovale as noted on 2-D or Doppler imagi ng. AORTIC VALVE The aortic valve is calcified but opens well. Doppler and Color Flow revealed no significant aortic r egurgitation. There is no significant aortic valvular stenosis. MITRAL VALVE The mitral valve is calcified but opens well. There is no evidence of mitral valve prolapse. There is no mitral valve stenosis. Doppler and Color-flow revealed trace to mild mitral regurgitation. TRICUSPID VALVE The tricuspid valve is normal in structure and function. Doppler and Color Flow revealed trace tricus pid regurgitation. There is no tricuspid valve stenosis. PULMONIC VALVE The pulmonary valve is normal in structure and function. Doppler and Color Flow revealed trace to mil d pulmonic valvular regurgitation. There is no pulmonic valvular stenosis. GREAT VESSELS The aortic root is normal in size. The ascending aorta is mildly dilated at 3.5 cm. The IVC is normal in size and collapses >50% with inspiration. PERICARDIAL EFFUSION There is a trace circumferential pericardial effusion. Critical Notification Critical Value: No <Conclusion> Left ventricle systolic function is normal. The Ejection Fraction is 50-55%. Trace to mild mitral regurgitation. Trace tricuspid regurgitation. There is a trace circumferential pericardial effusion. Signed by : Nicanor Marks, Electronically Approved : 10/03/2017 14:34:34
[2017-10-03] MEDS: ENOXAPARIN 40 MG/0.4 ML DISP.SYRIN. SQ SCH (20:29)
[2017-10-03] MEDS: DOXYCYCLINE HYCLATE 100 MG TABLET PO SCH (20:29)
[2017-10-03] MEDS: cefTRIAXone IV Push 1 GM VIAL. IVP SCH (20:30)
--- NOTE | 2017-10-03 23:01 | HP ---
ADMIT DATE: 10/02/2017 HISTORY OF PRESENT ILLNESS: The patient is a 67-year-old female with history of previous pancreatic cancer has come in with increased shortness of breath here, for the last week or so, increasingly worse despite outpatient therapy. The patient has gained about 10 pounds weight as a result of this. The patient has increased swelling to her legs. She recently discontinued chemo for her pancreatic cancer. She has had history of a Whipple surgery done in 11/2016. In any case, the patient was admitted for congestive heart failure and possible pneumonia of unspecified etiology. Cardiology consultation, IV antibiotic therapy. PAST MEDICAL HISTORY: Pancreatic cancer, anxiety, coronary artery disease, stroke, diabetes, hypertension, and cholecystectomy. SOCIAL HISTORY: The patient presently denies any smoking, alcohol, or drug use. FAMILY HISTORY: Unremarkable. CURRENT MEDICATIONS: Lasix 40 mg daily. ALLERGIES: Not known. REVIEW OF SYSTEMS: The patient has had some recent weight loss, increased difficulty in breathing and shortness of breath as well. The patient denies abdominal pain, denies any nausea, vomiting, melena, hematochezia or hematemesis, and neurologically stable. PHYSICAL EXAMINATION: GENERAL: This is a pleasant white female in moderate amount of distress. VITAL SIGNS: Blood pressure 162/87, respiratory rate 20, pulse 84, temperature 98.2. The patient is fairly well-developed, looking older than stated age. HEENT: The patient's head was atraumatic, normocephalic. Eyes: PERRLA without jaundice. Mouth and throat were normal. NECK: Supple, without JVD or thyromegaly. LUNGS: Diminished, poor movement of air; particularly in the bases with crackles noted and rales. CARDIOVASCULAR: Regular sinus rhythm, S1, S2, without murmur, rub, thrill, or extra heart sound. ABDOMEN: Soft, protuberant, nontender. No rebound or guarding. Positive bowel sounds, no hepatosplenomegaly noted. EXTREMITIES: No clubbing, cyanosis, +4 pitting edema. NEUROLOGIC: The patient was alert and oriented x 3. LABORATORY AND DIAGNOSTIC DATA: Demonstrate a white count of 6 with hematocrit of ____ stable. The patient's BNP was ____. Chest CT shows moderate right and small left pleural effusion, subsegmental atelectasis, moderate cardiomegaly with findings of pulmonary edema, mild left-sided pneumobilia. ASSESSMENT: ____ diastolic heart failure and history of pancreatic cancer ____. PLAN: The patient will be admitted with IV antibiotic therapy, cardiology consultation, and make further evaluation on her as indicated ____. DARREN WAITE MD DR: JOSEPHINE/macho JOB#: [id number] / [id number]
[2017-10-04] VITALS (7 sets, daily range): BP systolic 143–160; BP diastolic 65–79
[2017-10-04] MEDS: IPRATRPIUM/ALBUTEROL 0.5/2.5MG 3 ML NEBU. NEB SCH ×3 (05:19→20:20)
[2017-10-04 06:13] LABS: ALBUMIN 2.4 g/dL (3.4-5.0); ALBUMIN/GLOBULIN RATIO 0.9 (1.0-1.7); BASO % 0 % (0-3); CALCIUM 8.1 mg/dL (8.5-10.1); EOS # 0.3 x10^3/uL (0.0-0.7); EOS % 6 % (0-3); HEMATOCRIT 26.1 % (36.0-47.0); HEMOGLOBIN 9.1 g/dL (12.0-15.5); LYMPH # 1.4 x10^3/uL (1.0-4.8); LYMPH % 22 % (24-48); MEAN CORPUSCULAR HEMOGLOBIN 37 pg (25-35); MEAN CORPUSCULAR HGB CONC 35 g/dL (31-37); MEAN CORPUSCULAR VOLUME 107 fL (79-100); MONO # 0.9 x10^3/uL (0.0-1.1); MONO % 14 % (0-9); NEUT # 3.7 x10^3uL (1.8-7.7); NEUT % 59 % (31-73); PLATELET COUNT 226 x10^3/uL (140-400); POTASSIUM 3.3 mmol/L (3.5-5.1); RED BLOOD COUNT 2.43 x10^6/uL (3.50-5.40); RED CELL DISTRIBUTION WIDTH 18.7 % (11.5-14.5); TOTAL BILIRUBIN 0.8 mg/dL (0.2-1.0); TOTAL PROTEIN 5.2 g/dL (6.4-8.2); WHITE BLOOD COUNT 6.3 x10^3/uL (4.0-11.0)
[2017-10-04] MEDS: LACTOBACILLUS RHAMNOSUS GG 1 CAPSULE. PO SCH ×2 (08:56→20:36)
[2017-10-04] MEDS: FUROSEMIDE 40 MG/4 ML VIAL IVP SCH (08:56)
[2017-10-04] MEDS: DOXYCYCLINE HYCLATE 100 MG TABLET PO SCH ×2 (08:56→20:36)
[2017-10-04] MEDS: ASPIRIN 81 MG TAB.CHEW PO SCH (10:17)
[2017-10-04] MEDS: METOPROLOL TART IMMED RELEASE 25 MG TABLET PO SCH ×2 (10:17→20:39)
--- NOTE | 2017-10-04 12:05 | PDOC ---
PROGRESS NOTES Diagnosis Problem Problems Medical Problems: (1) Anemia Status: Acute (2) Bilateral pleural effusion Status: Acute (3) Pericardial effusion Status: Acute (4) Respiratory failure Status: Acute Assessment Problems Medical Problems: (1) Anemia Status: Acute (2) Bilateral pleural effusion Status: Acute (3) Pericardial effusion Status: Acute (4) Respiratory failure Status: Acute 1. CHF - Improving, continue diuresis, change to oral lasix in am. 2. presumed coronary disease - request cardiac cath report from [facility], pending 3. pneumonia - mgmt per PCP 4. pancreatic cancer s/p whipple s/p chemo - plans to resume chemo, mgmt per PCP 5. hypertension - add beta narcisa 6. hyperlipidemia - check lipids 7. diabetes - mgmt per PCP Problems: Subjective feeling better, less edema, no chest pain, breathing easy Objective Vital Signs Date Time Temp Pulse Resp B/P (MAP) Pulse Ox O2 Delivery O2 Flow Rate FiO2 10/04/17 11:10 53 156/70 (98) 10/04/17 08:00 Nasal Cannula 2.0 10/04/17 07:00 98.3 16 98 Intake and Output 10/04/17 06:59 Intake Total 1440 ml Output Total 1750 ml Balance -310 ml Intake Oral 1340 ml IV Total 100 ml Output Urine Total 1750 ml # Voids 1 # Bowel Movements 1 Abdomen: Normal bowel sounds, Soft Heart: Regular rate, Normal S1, Normal S2 Extremities: Other (trace edema) General: Alert, Oriented X3, Cooperative, No acute distress Lungs: Other (decreased with few basilar crackles) Review of Relevant I have reviewed the following items precious (where applicable) has been applied. Labs Laboratory Tests Test 10/02/17 16:42 10/02/17 19:29 10/02/17 19:53 10/02/17 20:55 White Blood Count 6.4 x10^3/uL (4.0-11.0) Red Blood Count 2.57 x10^6/uL (3.50-5.40) Hemoglobin 9.5 g/dL (12.0-15.5) Hematocrit 28.2 % (36.0-47.0) Mean Corpuscular Volume 110 fL (79-100) Mean Corpuscular Hemoglobin 37 pg (25-35) Mean Corpuscular Hemoglobin Concent 34 g/dL (31-37) Red Cell Distribution Width 19.8 % (11.5-14.5) Platelet Count 279 x10^3/uL (140-400) Neutrophils (%) (Auto) 70 % (31-73) Lymphocytes (%) (Auto) 19 % (24-48) Monocytes (%) (Auto) 9 % (0-9) Eosinophils (%) (Auto) 2 % (0-3) Basophils (%) (Auto) 0 % (0-3) Neutrophils # (Auto) 4.5 x10^3uL (1.8-7.7) Lymphocytes # (Auto) 1.2 x10^3/uL (1.0-4.8) Monocytes # (Auto) 0.6 x10^3/uL (0.0-1.1) Eosinophils # (Auto) 0.1 x10^3/uL (0.0-0.7) Basophils # (Auto) 0.0 x10^3/uL (0.0-0.2) D-Dimer (Akilah) 0.57 mg/L (0.00-0.50) Sodium Level 144 mmol/L (136-145) Potassium Level 3.6 mmol/L (3.5-5.1) Chloride Level 111 mmol/L (98-107) Carbon Dioxide Level 27 mmol/L (21-32) Anion Gap 6 (6-14) Blood Urea Nitrogen 12 mg/dL (7-20) Creatinine 0.9 mg/dL (0.6-1.0) Estimated GFR (Cockcroft-Gault) 62.1 BUN/Creatinine Ratio 13 (6-20) Glucose Level 109 mg/dL (70-99) Calcium Level 8.2 mg/dL (8.5-10.1) Total Bilirubin 1.3 mg/dL (0.2-1.0) Aspartate Amino Transf (AST/SGOT) 21 U/L (15-37) Alanine Aminotransferase (ALT/SGPT) 21 U/L (14-59) Alkaline Phosphatase 70 U/L (46-116) QH-Kuw-C-Type Natriuretic Peptide 71937 pg/mL (0-124) Total Protein 5.7 g/dL (6.4-8.2) Albumin 2.8 g/dL (3.4-5.0) Albumin/Globulin Ratio 1.0 (1.0-1.7) Mycoplasma Serology (LAB) Negative (NEGATIVE) Glucose (Fingerstick) 103 mg/dL (70-99) Lactic Acid Level 1.0 mmol/L (0.4-2.0) Nasal Screen MRSA (PCR) Negative (Negative) Influenza Type A (Rapid) Negative (NEGATIVE) Influenza Type B (Rapid) Negative (NEGATIVE) Test 10/03/17 05:45 10/03/17 07:27 10/03/17 11:41 10/03/17 16:35 White Blood Count 6.0 x10^3/uL (4.0-11.0) Red Blood Count 2.39 x10^6/uL (3.50-5.40) Hemoglobin 8.9 g/dL (12.0-15.5) Hematocrit 25.7 % (36.0-47.0) Mean Corpuscular Volume 108 fL (79-100) Mean Corpuscular Hemoglobin 37 pg (25-35) Mean Corpuscular Hemoglobin Concent 35 g/dL (31-37) Red Cell Distribution Width 19.7 % (11.5-14.5) Platelet Count 243 x10^3/uL (140-400) Neutrophils (%) (Auto) 61 % (31-73) Lymphocytes (%) (Auto) 24 % (24-48) Monocytes (%) (Auto) 13 % (0-9) Eosinophils (%) (Auto) 2 % (0-3) Basophils (%) (Auto) 0 % (0-3) Neutrophils # (Auto) 3.6 x10^3uL (1.8-7.7) Lymphocytes # (Auto) 1.4 x10^3/uL (1.0-4.8) Monocytes # (Auto) 0.8 x10^3/uL (0.0-1.1) Eosinophils # (Auto) 0.1 x10^3/uL (0.0-0.7) Basophils # (Auto) 0.0 x10^3/uL (0.0-0.2) Sodium Level 146 mmol/L (136-145) Potassium Level 3.2 mmol/L (3.5-5.1) Chloride Level 110 mmol/L (98-107) Carbon Dioxide Level 30 mmol/L (21-32) Anion Gap 6 (6-14) Blood Urea Nitrogen 11 mg/dL (7-20) Creatinine 1.0 mg/dL (0.6-1.0) Estimated GFR (Cockcroft-Gault) 55.0 BUN/Creatinine Ratio 11 (6-20) Glucose Level 74 mg/dL (70-99) Calcium Level 8.0 mg/dL (8.5-10.1) Magnesium Level 1.7 mg/dL (1.8-2.4) Total Bilirubin 0.9 mg/dL (0.2-1.0) Aspartate Amino Transf (AST/SGOT) 19 U/L (15-37) Alanine Aminotransferase (ALT/SGPT) 17 U/L (14-59) Alkaline Phosphatase 60 U/L (46-116) Total Protein 5.2 g/dL (6.4-8.2) Albumin 2.4 g/dL (3.4-5.0) Albumin/Globulin Ratio 0.9 (1.0-1.7) Glucose (Fingerstick) 83 mg/dL (70-99) 106 mg/dL (70-99) 129 mg/dL (70-99) Test 10/04/17 05:05 White Blood Count 6.3 x10^3/uL (4.0-11.0) Red Blood Count 2.43 x10^6/uL (3.50-5.40) Hemoglobin 9.1 g/dL (12.0-15.5) Hematocrit 26.1 % (36.0-47.0) Mean Corpuscular Volume 107 fL (79-100) Mean Corpuscular Hemoglobin 37 pg (25-35) Mean Corpuscular Hemoglobin Concent 35 g/dL (31-37) Red Cell Distribution Width 18.7 % (11.5-14.5) Platelet Count 226 x10^3/uL (140-400) Neutrophils (%) (Auto) 59 % (31-73) Lymphocytes (%) (Auto) 22 % (24-48) Monocytes (%) (Auto) 14 % (0-9) Eosinophils (%) (Auto) 6 % (0-3) Basophils (%) (Auto) 0 % (0-3) Neutrophils # (Auto) 3.7 x10^3uL (1.8-7.7) Lymphocytes # (Auto) 1.4 x10^3/uL (1.0-4.8) Monocytes # (Auto) 0.9 x10^3/uL (0.0-1.1) Eosinophils # (Auto) 0.3 x10^3/uL (0.0-0.7) Basophils # (Auto) 0.0 x10^3/uL (0.0-0.2) Sodium Level 145 mmol/L (136-145) Potassium Level 3.3 mmol/L (3.5-5.1) Chloride Level 109 mmol/L (98-107) Carbon Dioxide Level 31 mmol/L (21-32) Anion Gap 5 (6-14) Blood Urea Nitrogen 12 mg/dL (7-20) Creatinine 1.0 mg/dL (0.6-1.0) Estimated GFR (Cockcroft-Gault) 55.0 BUN/Creatinine Ratio 12 (6-20) Glucose Level 86 mg/dL (70-99) Calcium Level 8.1 mg/dL (8.5-10.1) Magnesium Level 2.0 mg/dL (1.8-2.4) Total Bilirubin 0.8 mg/dL (0.2-1.0) Aspartate Amino Transf (AST/SGOT) 17 U/L (15-37) Alanine Aminotransferase (ALT/SGPT) 15 U/L (14-59) Alkaline Phosphatase 58 U/L (46-116) Total Protein 5.2 g/dL (6.4-8.2) Albumin 2.4 g/dL (3.4-5.0) Albumin/Globulin Ratio 0.9 (1.0-1.7) Microbiology 10/02/17 Blood Culture - Preliminary, Resulted NO GROWTH AFTER 1 DAY Medications Current Medications Furosemide (Lasix) 40 mg 1X ONCE IVP Last administered on 10/02/17at 17:05; Start 10/02/17 at 17:30; Stop 10/02/17 at 17:31; Status DC Albuterol/ Ipratropium (Duoneb) 3 ml RTQID NEB ; Start 10/02/17 at 18:00; Stop 10/02/17 at 19:44; Status DC Acetaminophen (Tylenol) 650 mg PRN Q6HRS PRN PO Headaches, Temp > 101.5F; Start 10/02/17 at 19:15 Ondansetron HCl (Zofran) 4 mg PRN Q8HRS PRN IV NAUSEA/VOMITING; Start 10/02/17 at 19:15 Furosemide (Lasix) 40 mg DAILY IVP Last administered on 10/04/17at 08:56; Start 10/03/17 at 09:00 Ceftriaxone Sodium 1 gm/ Sodium Chloride 50 ml @ 100 mls/hr Q24H IV ; Start 08/09 at 19:30; Status UNV Levofloxacin/ Dextrose 100 ml @ 100 mls/hr Q24H IV Last administered on at 20:47; Start 10/02/17 at 20:00; Stop 10/03/17 at 16:13; Status DC Enoxaparin Sodium (Lovenox) 40 mg Q24H SQ Last administered on 10/03/17at 20:29 ; Start 10/02/17 at 21:00 Albuterol/ Ipratropium (Duoneb) 3 ml TID NEB Last administered on 10/04/17at 05: 19; Start 10/02/17 at 21:00 Ceftriaxone Sodium (Rocephin) 1 gm Q24H IVP Last administered on 10/03/17at 20: 30; Start 10/02/17 at 20:00 Lactobacillus Rhamnosus (Culturelle) 1 cap BID PO Last administered on at 08:56; Start 10/02/17 at 21:00 Magnesium Sulfate/ Dextrose 100 ml @ 100 mls/hr 1X ONCE IV Last administered on 10/03/17at 10:31; Start 10/03/17 at 10:00; Stop 10/03/17 at 10:59; Status DC Potassium Chloride (Klor-Con) 40 meq 1X ONCE PO Last administered on at 10:31; Start 10/03/17 at 10:00; Stop 10/03/17 at 10:01; Status DC Doxycycline Hyclate (Vibra-Tab) 100 mg BID PO Last administered on 10/04/17at 08 :56; Start 10/03/17 at 21:00 Aspirin (Children'S Aspirin) 81 mg DAILY PO Last administered on 10/04/17at 10: 17; Start 10/04/17 at 10:00 Atorvastatin Calcium (Lipitor) 20 mg QHS PO ; Start 10/04/17 at 21:00 Metoprolol Tartrate (Lopressor) 12.5 mg BID PO Last administered on 10/04/17at 10:17; Start 10/04/17 at 10:00 Active Scripts Active Reported Hydrocodone-Apap 5-325 (Hydrocodone Bit/Acetaminophen) 1 Each Tablet 1-2 Tab PO PRN Q4-6HRS PRN TAKE NEEDED. Probiotic (Lactobacillus Acidophilus) 1 Each Capsule 1 Each PO DAILY LAST DOSE GIVEN: DATE: WEDNESDAY 10/04 TIME: 9AM NEXT DOSE DUE: DATE: THURSDAY 10/05 TIME: 9AM Metformin Hcl 500 Mg Tablet 500 Mg PO BIDWMEALS NEXT DOSE DUE: DATE: BEFORE YOUR TIME: NEXT MEAL Metoprolol Tartrate 25 Mg Tablet 12.5 Mg PO BID LAST DOSE GIVEN: DATE: WEDNESDAY 10/04 TIME: 9AM NEXT DOSE DUE: DATE: WEDNESDAY 10/04 TIME: 9PM Cetirizine Hcl 10 Mg Tablet 10 Mg PO DAILY NEXT DOSE DUE: DATE: THURSDAY 10/05 TIME: 9AM Atorvastatin Calcium 20 Mg Tablet 20 Mg PO QHS NEXT DOSE DUE: DATE: WEDNESDAY 10/04 TIME: 9PM Aspirin 81 Mg Tab.chew 81 Mg PO DAILY LAST DOSE GIVEN: DATE: WEDNESDAY 10/04 TIME: 9AM NEXT DOSE DUE: DATE: THURSDAY 10/05 TIME: 9AM Vitals/I & O Vital Sign - Last 24 Hours 10/03/17 10/03/17 10/03/17 10/03/17 15:25 18:13 20:00 23:00 Temp 98.7 98.3 98.3 Pulse 69 64 58 Resp 22 22 22 B/P (MAP) 166/66 (99) 170/66 (100) 168/66 (100) Pulse Ox 93 98 98 O2 Delivery Nasal Cannula Nasal Cannula Nasal Cannula Nasal Cannula O2 Flow Rate 1.0 0.5 2.0 2.0 10/04/17 10/04/17 10/04/17 10/04/17 03:00 05:20 07:00 08:00 Temp 98.3 98.3 Pulse 58 69 Resp 20 16 B/P (MAP) 157/68 (97) 156/79 (104) Pulse Ox 94 96 98 O2 Delivery Nasal Cannula Nasal Cannula Nasal Cannula Nasal Cannula O2 Flow Rate 2.0 2.0 2.0 2.0 10/04/17 10/04/17 10:17 11:10 Pulse 69 53 B/P (MAP) 156/79 156/70 (98) Intake and Output 10/03/17 10/03/17 10/04/17 14:59 22:59 06:59 Intake Total 840 ml 240 ml 360 ml Output Total 1300 ml 450 ml Balance -460 ml 240 ml -90 ml KERLINE XIAO APRN Oct 04, 2017 12:05
[2017-10-04] MEDS: cefTRIAXone IV Push 1 GM VIAL. IVP SCH (19:54)
[2017-10-04] MEDS: ATORVASTATIN CALCIUM 20 MG TABLET PO SCH (20:36)
[2017-10-04] MEDS: ENOXAPARIN 40 MG/0.4 ML DISP.SYRIN. SQ SCH (20:38)
[2017-10-05 01:10] VITALS: BP 138/62
[2017-10-05 04:05] VITALS: BP 144/62
[2017-10-05 05:08] VITALS: BP 152/65
[2017-10-05] MEDS: IPRATRPIUM/ALBUTEROL 0.5/2.5MG 3 ML NEBU. NEB SCH ×3 (05:14→20:03)
[2017-10-05 06:19] LABS: BASO % 0 % (0-3); EOS # 0.4 x10^3/uL (0.0-0.7); EOS % 6 % (0-3); HEMATOCRIT 26.5 % (36.0-47.0); LYMPH # 1.5 x10^3/uL (1.0-4.8); LYMPH % 22 % (24-48); MEAN CORPUSCULAR HEMOGLOBIN 37 pg (25-35); MEAN CORPUSCULAR HGB CONC 34 g/dL (31-37); MEAN CORPUSCULAR VOLUME 108 fL (79-100); MONO # 0.8 x10^3/uL (0.0-1.1); MONO % 13 % (0-9); NEUT # 3.9 x10^3uL (1.8-7.7); NEUT % 59 % (31-73); PLATELET COUNT 211 x10^3/uL (140-400); RED BLOOD COUNT 2.45 x10^6/uL (3.50-5.40); RED CELL DISTRIBUTION WIDTH 18.7 % (11.5-14.5); WHITE BLOOD COUNT 6.7 x10^3/uL (4.0-11.0)
[2017-10-05 06:52] LABS: CALCIUM 8.1 mg/dL (8.5-10.1); POTASSIUM 3.6 mmol/L (3.5-5.1)
[2017-10-05] MEDS: LACTOBACILLUS RHAMNOSUS GG 1 CAPSULE. PO SCH ×2 (09:13→20:11)
[2017-10-05] MEDS: DOXYCYCLINE HYCLATE 100 MG TABLET PO SCH ×2 (09:13→20:11)
[2017-10-05] MEDS: FUROSEMIDE 40 MG/4 ML VIAL IVP SCH (09:13)
[2017-10-05] MEDS: METOPROLOL TART IMMED RELEASE 25 MG TABLET PO SCH ×2 (09:13→20:11)
[2017-10-05] MEDS: ASPIRIN 81 MG TAB.CHEW PO SCH (09:13)
--- NOTE | 2017-10-05 12:51 | PN ---
DATE: 10/02/2017 SUBJECTIVE: The patient in with acute respiratory failure, also having problems with bilateral pleural effusions as well as anemia, pericardial effusion and congestive heart failure. The patient is doing somewhat better, also has pneumonia complicating the whole situation as well as a history of pancreatic cancer. The patient seems to be doing a little bit better today with diuresis. OBJECTIVE: VITAL SIGNS: Blood pressure down to 140/60, respiratory rate 16, pulse 50, afebrile. HEENT: The patient's head was atraumatic, normocephalic. Eyes: PERRLA without jaundice. The mouth and throat were normal. NECK: Supple, without JVD or thyromegaly. LUNGS: Diminished, particularly in the bases with some crackles noted. CARDIOVASCULAR: Regular sinus rhythm, S1, S2. ABDOMEN: Soft, protuberant. EXTREMITIES: No clubbing, cyanosis. Trace edema noted. NEUROLOGIC: Intact. The patient seems to be resting fairly comfortably. LABORATORY DATA: Hemoglobin 9 and 26, potassium low at 3.3. PLAN: The patient will be continued to be monitored carefully in the ICU for her acute respiratory failure, acute on top of chronic diastolic heart failure, pancreatic cancer, pneumonia of unspecified etiology, exacerbation of chronic obstructive pulmonary disease and subsegmental atelectasis noted. DARREN WAITE MD DR: JOSEPHINE/macho JOB#: [id number] / [id number]
[2017-10-05 15:21] VITALS: BP 143/60
[2017-10-05 19:12] VITALS: BP 135/75
[2017-10-05] MEDS: ENOXAPARIN 40 MG/0.4 ML DISP.SYRIN. SQ SCH (20:10)
[2017-10-05] MEDS: cefTRIAXone IV Push 1 GM VIAL. IVP SCH (20:10)
[2017-10-05] MEDS: ATORVASTATIN CALCIUM 20 MG TABLET PO SCH (20:11)
[2017-10-05 22:54] VITALS: BP 141/70
[2017-10-06 05:15] VITALS: BP 147/66
[2017-10-06] MEDS: IPRATRPIUM/ALBUTEROL 0.5/2.5MG 3 ML NEBU. NEB SCH ×2 (05:30→10:36)
[2017-10-06] MEDS: METOPROLOL TART IMMED RELEASE 25 MG TABLET PO SCH (08:35)
[2017-10-06] MEDS: DOXYCYCLINE HYCLATE 100 MG TABLET PO SCH (08:36)
[2017-10-06] MEDS: ASPIRIN 81 MG TAB.CHEW PO SCH (08:36)
[2017-10-06] MEDS: FUROSEMIDE 40 MG/4 ML VIAL IVP SCH (08:36)
[2017-10-06] MEDS: LACTOBACILLUS RHAMNOSUS GG 1 CAPSULE. PO SCH (08:36)
[2017-10-06 08:50] VITALS: BP 135/60
--- NOTE | 2017-10-06 09:04 | PDOC ---
PROGRESS NOTES Diagnosis Problem Problems Medical Problems: (1) Anemia Status: Acute (2) Bilateral pleural effusion Status: Acute (3) Pericardial effusion Status: Acute (4) Respiratory failure Status: Acute Assessment Problems Medical Problems: (1) Anemia Status: Acute (2) Bilateral pleural effusion Status: Acute (3) Pericardial effusion Status: Acute (4) Respiratory failure Status: Acute 1. CHF - Improved clinically. Repeat CXR, change lasix to PO. 2. presumed coronary disease - angina free. follow up outpatient. Continue RF reduction. 3. pneumonia - mgmt per PCP 4. pancreatic cancer s/p whipple s/p chemo - plans to resume chemo, mgmt per PCP 5. hypertension - improved control. monitor outpatient. 6. hyperlipidemia - continue statin 7. diabetes - mgmt per PCP Problems: Subjective feeling better, swelling better, no chest pain, no palpitations, breathing easy. Objective Vital Signs Date Time Temp Pulse Resp B/P (MAP) Pulse Ox O2 Delivery O2 Flow Rate FiO2 10/06/17 08:51 18 93 Nasal Cannula 2.0 10/06/17 08:50 67 135/60 (85) 10/06/17 05:15 98.5 Intake and Output 10/06/17 07:00 Intake Total 1330 ml Balance 1330 ml Intake Oral 1330 ml Abdomen: Normal bowel sounds, Soft, No tenderness Heart: Regular rate, Normal S1, Normal S2 Extremities: No cyanosis, Normal pulses, Other (trace edema) General: Alert, Oriented X3, Cooperative Lungs: Other (decreased bases) Neuro: Normal speech, Strength at 5/5 X4 ext Psych/Mental Status: Mental status NL, Mood NL Review of Relevant I have reviewed the following items precious (where applicable) has been applied. Labs Laboratory Tests Test 10/05/17 05:00 White Blood Count 6.7 x10^3/uL (4.0-11.0) Red Blood Count 2.45 x10^6/uL (3.50-5.40) Hemoglobin 9.0 g/dL (12.0-15.5) Hematocrit 26.5 % (36.0-47.0) Mean Corpuscular Volume 108 fL (79-100) Mean Corpuscular Hemoglobin 37 pg (25-35) Mean Corpuscular Hemoglobin Concent 34 g/dL (31-37) Red Cell Distribution Width 18.7 % (11.5-14.5) Platelet Count 211 x10^3/uL (140-400) Neutrophils (%) (Auto) 59 % (31-73) Lymphocytes (%) (Auto) 22 % (24-48) Monocytes (%) (Auto) 13 % (0-9) Eosinophils (%) (Auto) 6 % (0-3) Basophils (%) (Auto) 0 % (0-3) Neutrophils # (Auto) 3.9 x10^3uL (1.8-7.7) Lymphocytes # (Auto) 1.5 x10^3/uL (1.0-4.8) Monocytes # (Auto) 0.8 x10^3/uL (0.0-1.1) Eosinophils # (Auto) 0.4 x10^3/uL (0.0-0.7) Basophils # (Auto) 0.0 x10^3/uL (0.0-0.2) Sodium Level 144 mmol/L (136-145) Potassium Level 3.6 mmol/L (3.5-5.1) Chloride Level 105 mmol/L (98-107) Carbon Dioxide Level 34 mmol/L (21-32) Anion Gap 5 (6-14) Blood Urea Nitrogen 14 mg/dL (7-20) Creatinine 1.0 mg/dL (0.6-1.0) Estimated GFR (Cockcroft-Gault) 55.0 Glucose Level 101 mg/dL (70-99) Calcium Level 8.1 mg/dL (8.5-10.1) Microbiology 10/02/17 Blood Culture - Preliminary, Resulted NO GROWTH AFTER 3 DAYS Medications Current Medications Furosemide (Lasix) 40 mg 1X ONCE IVP Last administered on 10/02/17at 17:05; Start 10/02/17 at 17:30; Stop 10/02/17 at 17:31; Status DC Albuterol/ Ipratropium (Duoneb) 3 ml RTQID NEB ; Start 10/02/17 at 18:00; Stop 10/02/17 at 19:44; Status DC Acetaminophen (Tylenol) 650 mg PRN Q6HRS PRN PO Headaches, Temp > 101.5F; Start 10/02/17 at 19:15 Ondansetron HCl (Zofran) 4 mg PRN Q8HRS PRN IV NAUSEA/VOMITING; Start 10/02/17 at 19:15 Furosemide (Lasix) 40 mg DAILY IVP Last administered on 10/06/17at 08:36; Start 10/03/17 at 09:00 Ceftriaxone Sodium 1 gm/ Sodium Chloride 50 ml @ 100 mls/hr Q24H IV ; Start 08/09 at 19:30; Status UNV Levofloxacin/ Dextrose 100 ml @ 100 mls/hr Q24H IV Last administered on at 20:47; Start 10/02/17 at 20:00; Stop 10/03/17 at 16:13; Status DC Enoxaparin Sodium (Lovenox) 40 mg Q24H SQ Last administered on 10/05/17at 20:10 ; Start 10/02/17 at 21:00 Albuterol/ Ipratropium (Duoneb) 3 ml TID NEB Last administered on 10/06/17at 05: 30; Start 10/02/17 at 21:00 Ceftriaxone Sodium (Rocephin) 1 gm Q24H IVP Last administered on 10/05/17at 20: 10; Start 10/02/17 at 20:00 Lactobacillus Rhamnosus (Culturelle) 1 cap BID PO Last administered on at 08:36; Start 10/02/17 at 21:00 Magnesium Sulfate/ Dextrose 100 ml @ 100 mls/hr 1X ONCE IV Last administered on 10/03/17at 10:31; Start 10/03/17 at 10:00; Stop 10/03/17 at 10:59; Status DC Potassium Chloride (Klor-Con) 40 meq 1X ONCE PO Last administered on at 10:31; Start 10/03/17 at 10:00; Stop 10/03/17 at 10:01; Status DC Doxycycline Hyclate (Vibra-Tab) 100 mg BID PO Last administered on 10/06/17at 08 :36; Start 10/03/17 at 21:00 Aspirin (Children'S Aspirin) 81 mg DAILY PO Last administered on 10/06/17at 08: 36; Start 10/04/17 at 10:00 Atorvastatin Calcium (Lipitor) 20 mg QHS PO Last administered on 10/05/17at 20: 11; Start 10/04/17 at 21:00 Metoprolol Tartrate (Lopressor) 12.5 mg BID PO Last administered on 10/06/17at 08:35; Start 10/04/17 at 10:00 Active Scripts Active Reported Hydrocodone-Apap 5-325 (Hydrocodone Bit/Acetaminophen) 1 Each Tablet 1-2 Tab PO PRN Q4-6HRS PRN TAKE NEEDED. Probiotic (Lactobacillus Acidophilus) 1 Each Capsule 1 Each PO DAILY LAST DOSE GIVEN: DATE: WEDNESDAY 10/04 TIME: 9AM NEXT DOSE DUE: DATE: THURSDAY 10/05 TIME: 9AM Metformin Hcl 500 Mg Tablet 500 Mg PO BIDWMEALS NEXT DOSE DUE: DATE: BEFORE YOUR TIME: NEXT MEAL Metoprolol Tartrate 25 Mg Tablet 12.5 Mg PO BID LAST DOSE GIVEN: DATE: WEDNESDAY 10/04 TIME: 9AM NEXT DOSE DUE: DATE: WEDNESDAY 10/04 TIME: 9PM Cetirizine Hcl 10 Mg Tablet 10 Mg PO DAILY NEXT DOSE DUE: DATE: THURSDAY 10/05 TIME: 9AM Atorvastatin Calcium 20 Mg Tablet 20 Mg PO QHS NEXT DOSE DUE: DATE: WEDNESDAY 10/04 TIME: 9PM Aspirin 81 Mg Tab.chew 81 Mg PO DAILY LAST DOSE GIVEN: DATE: WEDNESDAY 10/04 TIME: 9AM NEXT DOSE DUE: DATE: THURSDAY 10/05 TIME: 9AM Vitals/I & O Vital Sign - Last 24 Hours 10/05/17 10/05/17 10/05/17 10/05/17 09:13 09:46 12:52 15:21 Pulse 54 55 51 B/P (MAP) 152/65 143/60 (87) Pulse Ox 100 98 O2 Delivery Nasal Cannula Nasal Cannula O2 Flow Rate 4.0 2.0 10/05/17 10/05/17 10/05/17 10/05/17 19:12 20:00 20:00 20:11 Temp 98.3 Pulse 66 66 Resp 16 B/P (MAP) 135/75 (95) 135/75 Pulse Ox 96 97 O2 Delivery Nasal Cannula Nasal Cannula Nasal Cannula O2 Flow Rate 2.0 3.5 3.0 10/05/17 10/06/17 10/06/17 10/06/17 22:54 05:15 05:30 08:35 Temp 98.5 Pulse 79 57 74 Resp 20 22 B/P (MAP) 141/70 (93) 147/66 (93) 147/66 Pulse Ox 98 92 95 O2 Delivery Nasal Cannula Nasal Cannula Nasal Cannula O2 Flow Rate 2.0 2.0 2.5 10/06/17 10/06/17 10/06/17 08:39 08:50 08:51 Pulse 67 Resp 18 18 B/P (MAP) 135/60 (85) Pulse Ox 89 93 O2 Delivery Nasal Cannula Room Air Nasal Cannula O2 Flow Rate 2.0 2.0 Intake and Output 10/05/17 10/05/17 10/06/17 15:00 23:00 07:00 Intake Total 970 ml 360 ml Balance 970 ml 360 ml KERLINE XIAO SKI GUIDE Oct 06, 2017 09:04
--- NOTE | 2017-10-06 11:54 | RAD ---
2 view chest 10/06/2017 Clinical indication: CHF. Comparison: 12/29/2016 chest, CT chest 10/02/2017. Findings: Left subclavian chest port in similar position. Persistent moderate generalized cardiomegaly and mild pulmonary venous congestion. There are medium bilateral pleural effusions and adjacent consolidation, left greater than right. There is a thin lucency overlying the lower right thorax which is likely artifactual as there are pulmonary vessels distal. Impression: 1. Unchanged findings of CHF or volume overload with cardiomegaly, pulmonary edema and medium bilateral pleural effusions. 2. Persistent bibasilar consolidation, may represent atelectasis, aspiration or multifocal pneumonia.
[2017-10-06] MEDS ORDERED: DOXY100T PO (12:49)
[2017-10-06] MEDS ORDERED: FURO20TA3 PO (12:49)
[2017-10-06 13:07] VITALS: BP 155/60
--- NOTE | 2017-10-06 19:44 | PN ---
DATE: SUBJECTIVE: The patient is resting fairly comfortably, making good progress overall. The patient is breathing a little bit easier. Had bilateral pleural effusions, pericardial effusion, and respiratory failure. The patient's CHF also has improved. OBJECTIVE: LUNGS: The patient's lungs showed diminished some decreased breath sounds at the bases. CARDIOVASCULAR: Regular sinus rhythm, 1/6 systolic ejection murmur, blood pressure 134/74, respiratory rate 16, pulse 60, afebrile. IMPRESSION: Therefore, acute exacerbation of chronic obstructive pulmonary disease, acute hypoxia, chronic diastolic heart failure, acute respiratory distress, anemia of chronic disease, history of pancreatic cancer antibiotic therapy, fluids and aggressive pulmonary toilet. DARREN WAITE MD DR: JOSEPHINE/macho JOB#: [id number] / [id number]
[2017-10-07] MEDS ORDERED: FUROSEMIDE 20 MG TABLET PO SCH (09:00)
== END 2017-10-06 14:05 | disposition home health service (06) | DRG 291 ==
LOC: ER 16:10 → ICU 18:44
PROVIDERS: ADMIT Family Medicine; ATTEND Family Medicine
DX: I11.0 Hypertensive heart disease with heart failure (principal); J18.9 Pneumonia, unspecified organism; J96.01 Acute respiratory failure with hypoxia; C25.9 Malignant neoplasm of pancreas, unspecified; E11.36 Type 2 diabetes mellitus with diabetic cataract; D63.8 Anemia in other chronic diseases classified elsewhere; I31.3 Pericardial effusion (noninflammatory); J44.0 Chronic obstructive pulmonary disease with (acute) lower respiratory infection; J44.1 Chronic obstructive pulmonary disease with (acute) exacerbation; I50.33 Acute on chronic diastolic (congestive) heart failure; E78.5 Hyperlipidemia, unspecified; I25.10 Atherosclerotic heart disease of native coronary artery without angina pectoris; Z86.73 Personal history of transient ischemic attack (TIA), and cerebral infarction without residual deficits; Z90.411 Acquired partial absence of pancreas; Z92.21 Personal history of antineoplastic chemotherapy; F41.9 Anxiety disorder, unspecified; Z90.49 Acquired absence of other specified parts of digestive tract; Z80.0 Family history of malignant neoplasm of digestive organs; Z82.49 Family history of ischemic heart disease and other diseases of the circulatory system; Z83.3 Family history of diabetes mellitus
CPT/HCPCS: 36415; 71046; 71250; 80048; 80053; 82947; 83605; 83735; 83880; 85025; 85379; 86738; 87040; 87641; 87804; 93005; 93306; 94618; 94640; 96374; J0696; J1650; J1940; J1956; J3475; J7620; 99285-25

== ENCOUNTER → 2017-11-03 | Outpatient (CLI) | payer MEDICARE ==
[2017-10-06 13:07] VITALS: BP 155/60
[~2017-11-03] MED LIST changes: +ASPI-630 PO; +ATOR20TA58 PO; +CETI10TA16 PO; +DOXY100T PO; +FURO20TA3 PO; +HYDR-2758 PO; +LACT1CAP6 PO; +METF500T4 PO; +METO25TA4 PO
--- NOTE | 2017-11-03 11:11 | RAD ---
2 views of the chest 11/03/2017 Indication: Follow up, pleural effusion Comparison study: 2 views the chest October 06, 2017 Discussion: No pneumothorax or pleural effusion is identified. The heart remains enlarged but similar to prior study. Left-sided port with tip at the cavoatrial junction is stable. No new focal consolidation or infiltrate is identified. No acute osseous changes identified in the interim. Impression: No radiographic evidence of acute cardiopulmonary process is identified. Pleural effusions have resolved in the interim.
== END | disposition home or self-care (01) ==
LOC: RAD 10:45
PROVIDERS: ATTEND Internal Medicine Hematology & Oncology
DX: J90 Pleural effusion, not elsewhere classified (principal); C22.1 Intrahepatic bile duct carcinoma
CPT/HCPCS: 71046

== ENCOUNTER → 2018-06-23 | Outpatient (CLI) | payer MEDICARE ==
[~2018-06-23] MED LIST changes: +METF500T16 PO; -METF500T4 PO
--- NOTE | 2018-06-23 15:58 | RAD ---
Exam: Right Upper Quadrant Ultrasound 06/23/2018 1:00 PM Indication: Abnormal liver function tests. History of cholangiocarcinoma history of Whipple procedure. Comparisons: CT of the abdomen and pelvis December 29, 2016. Technique: Multiple realtime grayscale sonographic images were obtained over the abdomen. Static images were submitted for interpretation. Discussion: The pancreas is poorly visualized. There is a 3.8 there is a 3.8 cm cystic appearing structure which appears to abut the head of the pancreas. Limited visualization of the aorta and IVC is unremarkable. Gallbladder fossa is poorly visualized. Limited evaluation of portal vein demonstrates antegrade flow. Portions of the liver obscured. No overt biliary dilatation is seen. 9 mm cyst is present in the right lobe of the liver. The liver is grossly normal in size. The right kidney measures 10.3 cm in length. There is a 1.6 cm cyst in the mid right kidney. There is a 1.0 cm cyst in the inferior right kidney. The common bile duct is nonvisualized. IMPRESSION: 1.Limited study secondary to poor visualization of the liver and pancreas. 2. 3.8 cm cystic-appearing structure abutting the visualized portion of the pancreatic body. A pseudocyst could have this appearance. Ultimately this is of uncertain etiology. Recommend contrast enhanced CT of the abdomen for further characterization. Electronically signed by: Caleb Arriaga MD (06/23/2018 3:54 PM) [id number]
== END | disposition home or self-care (01) ==
LOC: US 12:32
PROVIDERS: ATTEND Family Medicine
DX: R94.5 Abnormal results of liver function studies (principal); N28.1 Cyst of kidney, acquired; Z90.411 Acquired partial absence of pancreas; Z85.09 Personal history of malignant neoplasm of other digestive organs
CPT/HCPCS: 76705

== ENCOUNTER → 2018-08-21 | Outpatient (CLI) | payer MEDICARE ==
[~2018-08-21] MED LIST changes: +HYDR-2155 PO; -HYDR-2758 PO; +IOHEXOL 300 MG/ML 75 ML VIAL. IV ONE
--- NOTE | 2018-08-21 12:25 | RAD ---
CT of the abdomen with contrast, 08/21/2018: HISTORY: Pancreatic cancer, bile duct cancer, previous Whipple procedure Multidetector CT imaging was performed following an IV bolus injection of iodinated contrast material. No oral contrast material was administered for this study. Comparison is made to an exam from 04/02/2018. The liver demonstrates markedly decreased density in a diffuse pattern compatible with fatty change. Pneumobilia is present compatible with history of a previous Whipple procedure. No significant intrahepatic bile duct dilatation is evident. No hepatic mass is seen. The pancreatic head has been resected. There is increasing dilatation of the pancreatic duct in the remaining pancreatic body and tail. There is a 3.2 cm fluid collection with an adjacent serpiginous medium density structure adjacent to surgical clips in the region of the resected pancreatic head. The serpiginous medium density structure probably represents collapsed bowel related to the choledochojejunostomy. Recurrent tumor cannot be excluded. The adjacent 3 cm cystic structure probably represents a segment of fluid-filled small bowel. A postoperative seroma or biloma is less likely. The spleen is of normal size. There is moderate bilateral renal cortical scarring. Several small bilateral renal cysts are again noted. The kidneys show no evidence of obstruction. No adrenal abnormality is detected. There is moderate calcific plaquing of the abdominal aorta and its branches. No retroperitoneal or mesenteric adenopathy is seen. There is a moderate amount stool in the colon. The appendix is visualized and shows no abnormality. No free fluid is evident in the abdomen. There is an unchanged small fat-containing anterior abdominal wall hernia in the right lower abdomen. IMPRESSION: 1. Severe hepatic steatosis. 2. Increasing pancreatic ductal dilatation in the remaining pancreatic body and tail. 3. Medium density and cystic structures in the region of the choledochojejunostomy are probably collapsed and fluid-filled bowel. Tumor recurrence at this level cannot be excluded. 4. Bilateral renal scarring with multiple small cysts. PQRS Compliance Statement: One or more of the following individualized dose reduction techniques were utilized for this examination: 1. Automated exposure control 2. Adjustment of the mA and/or kV according to patient size 3. Use of iterative reconstruction technique Electronically signed by: Ramana Plummer MD (08/21/2018 12:21 PM) [facility]
== END | disposition home or self-care (01) ==
LOC: CT 08:41
PROVIDERS: ATTEND Family Medicine
DX: C22.1 Intrahepatic bile duct carcinoma (principal); K76.0 Fatty (change of) liver, not elsewhere classified; N28.1 Cyst of kidney, acquired
CPT/HCPCS: 74160; Q9967

== ENCOUNTER → 2018-11-25 | Outpatient (CLI) | payer MEDICARE ==
[~2018-11-25] MED LIST changes: +INSU100I13 SQ; -IOHEXOL 300 MG/ML 75 ML VIAL. IV ONE; +METF500T9 PO
[2018-11-25 13:41] LABS: CALCIUM 8.3 mg/dL (8.5-10.1); CREATININE 0.8 mg/dL (0.6-1.0); GFR 70.9; POTASSIUM 3.4 mmol/L (3.5-5.1)
== END | disposition home or self-care (01) ==
LOC: LAB 09:59
PROVIDERS: ATTEND Internal Medicine Cardiovascular Disease
DX: I25.10 Atherosclerotic heart disease of native coronary artery without angina pectoris (principal)
CPT/HCPCS: 36415; 80048

== ENCOUNTER → 2018-12-21 | Outpatient (CLI) | payer MEDICARE ==
[~2018-12-21] MED LIST changes: +IOHEXOL 240 MG/ML 50ML VIAL. ONE; +IOHEXOL 240 MG/ML 50ML VIAL. PO ONE; +IOHEXOL 300 MG/ML 75 ML VIAL. IV ONE
--- NOTE | 2018-12-21 10:25 | RAD ---
CT study of abdomen and pelvis with contrast Clinical indications: Elevated liver enzymes. History of pancreatic cancer. History of cholangiocarcinoma. TECHNIQUE: After IV infusion of 75 cc of Omnipaque 300, helical CT scanning of the abdomen and pelvis was performed. GI contrast was administered per mouth. PQRS compliance Statement One or more of the following individualized dose reduction techniques were utilized for this study: 1. Automated exposure control 2. Adjustment of the mA and/or kV according to patient size 3. Use of iterative reconstruction technique COMPARISON: July 25, 2018. December 29, 2016. FINDINGS: Diffuse fatty infiltration of the liver is seen. The spleen is not enlarged. Postsurgical changes are seen related to a Whipple's procedure. Again seen is diffuse dilatation of the main pancreatic duct within the body and tail of the pancreas. This was seen previously. No pancreatic mass of the body or tail of the pancreas is seen. The head and neck has been surgically resected. Biliary tree air is seen related to the Whipple's procedure. There is no dilatation of the stomach. There is wall thickening of the distal stomach proximal to the gastrojejunostomy. No obstructive bowel pattern is seen. The appendix is unchanged from the previous study. The terminal ileum is unremarkable. There are 2 small anterior abdominal wall hernias of the upper right side each containing antimesenteric side of the colon. They are by one another by only 6 mm. The lowermost hernia was seen previously but the uppermost hernia is new. There is no wall thickening or inflammatory change here. There is a larger more prominent anterior abdominal wall hernia on the right side more inferiorly which contains only fat. This is a bilobed hernia sac and measures 6.6 cm in vertical dimension. This hernia sac has increased in size. No inflammatory change is seen. No free intraperitoneal air or free fluid or mesenteric inflammatory change is seen. No dominant ovarian cyst or mass is seen. No uterine mass is evident. Bilateral renal cysts are seen. Small subcentimeter angiomyolipoma of the right kidney is seen. Perinephric inflammatory stranding is again evident and is unchanged. No hydronephrosis or hydroureter is seen. Urinary bladder is not abnormally distended. Small urinary bladder pelvic floor prolapse is seen. Calcified atheromatous disease of the abdominal aorta is seen. No focal aneurysmal dilatation is evident. No enlarged abdominal or pelvic lymphadenopathy is seen. Calcified granuloma of the posterior right lower lobe is seen. Smaller subcentimeter pleural-based lung nodule is seen within the posterior medial aspect of the right lower lobe which is stable. It measures 2.5 mm in size. This is consistent with a benign granuloma and calcified on December 29, 2016. No lung base consolidation is seen. No lytic process is seen. IMPRESSION: Postoperative changes consistent with the patient's history of a Whipple's procedure. No new soft tissue mass or enlarged abdominal adenopathy is evident. Diffuse fatty infiltration of the liver. No hepatic metastasis is evident. Wall thickening of the distal body of the stomach just proximal to the gastrojejunostomy. This may be due to incomplete distention but could be seen with peptic ulcer disease or gastritis. This appears more prominent than August 21, 2018 study. Abdominal wall hernias as discussed above without bowel obstruction or inflammatory change. Small urinary bladder prolapse. Electronically signed by: Ryan Stallworth MD (12/21/2018 10:22 AM) [id number]
== END | disposition home or self-care (01) ==
LOC: CT 07:53
PROVIDERS: ATTEND Family Medicine
DX: K43.9 Ventral hernia without obstruction or gangrene (principal); N81.10 Cystocele, unspecified; K76.0 Fatty (change of) liver, not elsewhere classified; I70.0 Atherosclerosis of aorta; J84.10 Pulmonary fibrosis, unspecified; D17.71 Benign lipomatous neoplasm of kidney; R74.8 Abnormal levels of other serum enzymes; R91.1 Solitary pulmonary nodule; E11.9 Type 2 diabetes mellitus without complications; Z90.411 Acquired partial absence of pancreas; R94.5 Abnormal results of liver function studies
CPT/HCPCS: 74177; Q9966; Q9967

== ENCOUNTER 2020-06-09 14:32 | Inpatient (IN) | payer MEDICARE ==
[~2020-06-09] VITALS: Ht 160 cm; Wt 52.6 kg
[~2020-06-09 14:32] MED LIST changes: -IOHEXOL 240 MG/ML 50ML VIAL. ONE; -IOHEXOL 240 MG/ML 50ML VIAL. PO ONE; -IOHEXOL 300 MG/ML 75 ML VIAL. IV ONE; +METF-658 PO; -METF500T9 PO
--- NOTE | 2020-06-09 14:57 | PHYS DOC ---
Past History Past Medical History: Anxiety, CAD, CVA, Diabetes, Hypotension, Stroke Past Surgical History: Cholecystectomy Alcohol Use: None Drug Use: None General Adult EDM: Chief Complaint: HYPERGLYCEMIA HPI: HPI: 70-year-old female past medical history significant for pancreatic cancer with Whipple surgery 11/2016, chf, coronary artery disease, stroke, diabetes, hypertension, and hyperlipidemia, presents to the ED sent by pmd after blood work returned, concern for glucose in 500s. Pt states she takes 20U insulin daily. Was taking metformin bid but it was recalled (February 2020-10/24 NDMA). Pt not aware of prior h/o bradycardia. EMR was reviewed and patient's echocardiogram performed in 2018 showed an ejection fraction of 50 to 55%. Pt states she feels well and has no complaints. Recalls chf admission 2 years ago with no further exacerbations. ROS: Denies any associated weight gain, leg swelling, rash, fever, chills, hematuria, neck stiffness, headache, chest pain or dyspnea. Review of Systems: Review of Systems: Constitutional: Denies fever or chills Eyes: Denies change in visual acuity HENT: Denies nasal congestion or sore throat Respiratory: Denies cough or shortness of breath Cardiovascular: Denies chest pain or edema GI: Denies abdominal pain, nausea, vomiting, bloody stools or diarrhea : Denies dysuria Musculoskeletal: Denies back pain or joint pain Integument: Denies rash Neurologic: Denies headache, focal weakness or sensory changes Endocrine: Denies polyuria or polydipsia Lymphatic: Denies swollen glands Psychiatric: Denies depression or anxiety Heart Score: Risk Factors: Risk Factors: DM, Current or recent (<one month) smoker, HTN, HLP, family history of CAD, obesity. Risk Scores: Score 0 - 3: 2.5% MACE over next 6 weeks - Discharge Home Score 4 - 6: 20.3% MACE over next 6 weeks - Admit for Clinical Observation Score 7 - 10: 72.7% MACE over next 6 weeks - Early Invasive Strategies Allergies: Allergies: Allergies Coded Allergies Type Severity Reaction Last Updated Verified No Known Drug Allergies 12/21/18 No Physical Exam: PE: Constitutional: Well developed, well nourished, no acute distress, non-toxic appearance, thin/well appearing HENT: Normocephalic, atraumatic, bilateral external ears normal, oropharynx dry, no oral exudates/erythema, nose normal. [] Eyes: EOMI, conjunctiva normal, no discharge. [] Neck: Normal range of motion, no tenderness, supple, no stridor. [] Cardiovascular:bradycardic, no murmur [] Lungs & Thorax: Bilateral breath sounds clear to auscultation [] Abdomen: Bowel sounds normal, soft, no tenderness, no masses, no pulsatile masses, reducible ventral hernia at proximal abdominal incision site, reducible umbilical hernia Skin: Warm, dry, no erythema, no rash. [] Back: No tenderness, no CVA tenderness. [] Extremities: No tenderness, no cyanosis, no clubbing, ROM intact, no edema. [] Neurologic: Alert and oriented X 3, normal motor function, normal sensory function, no focal deficits noted. [] Psychologic: Affect normal, judgement normal, mood normal. [] EKG: EKG: [] Radiology/Procedures: Radiology/Procedures: IMAGING REPORT Signed PATIENT: ABRIL NAGY ACCOUNT: [id number] : 1950 LOCATION: ER AGE: 70 SEX: F EXAM STATUS: REG ER ORD. PHYSICIAN: BRANDI LOVE DO REASON: hyperglycemia PROCEDURE: CHEST AP ONLY CHEST AP ONLY 06/09/2020 2:58 PM INDICATION: Hyperglycemia COMPARISON: 11/03/2017 TECHNIQUE: Portable frontal view of the chest is provided. FINDINGS: The cardiomediastinal silhouette is borderline enlarged, stable. Left chest wall infusion port catheter is identified with the distal tip projecting over the cavoatrial junction. Lungs are clear. There are no significant pleural effusions. There is no pulmonary vascular congestion. No pneumothorax. No suspicious osseous abnormality. IMPRESSION: There is no acute cardiopulmonary process. Electronically signed by: Gregg Trotter MD (06/09/2020 3:21 PM) [id number] DICTATED AND SIGNED BY: GREGG TROTTER MD DATE: 06/09/20 1521 CC: DARREN WAITE MD; BRANDI LOVE DO ~ Course & Med Decision Making: Course & Med Decision Making Pertinent Labs and Imaging studies reviewed. (See chart for details) Patients' medications reviewed, follows an [facility]. Patient on metoprolol extended release, 12.5 mg twice daily. No digoxin, opioids or calcium channel blockers. Pt started taking 20U sq SA insulin in December and has decreased it to 30U. Does not do routine glucose checks. Concern for asymptomatic bradycardia 2/2 beta narcisa overdose and poorly controlled diabetes. Concern for asymptomatic sinus bradycardia likely secondary to beta-narcisa toxicity. Also with uncontrolled diabetes, no dka. Follow-up with Dr. Stanton who accepts her admission, states she is on glargine and NovoLog. Patient stable at time of admission and agrees with plan. I have spoken with the patient and/or caregivers. I have explained the patient's condition, diagnosis and treatment plan based on the information available to me at this time. I have answered the patient's and/or caregivers questions and answered any concerns. The patient and/or caregivers have as good an understanding of the patient's diagnosis, condition and treatment plan as can be expected at this point. The patient has been stabilized within the capability of the emergency department. The patient will be transported for further care and management or will be moved to an observation or inpatient service. I have communicated with the staff or medical practitioner taking over this patient's care. [place] Disclaimer: Dragon Disclaimer: This electronic medical record was generated, in whole or in part, using a voice recognition dictation system. Departure Departure: Impression: Primary Impression: Sinus bradycardia Additional Impressions: Beta narcisa toxicity Uncontrolled diabetes mellitus Disposition: ADMITTED INPATIENT Admitting Physician: Darren Waite Condition: STABLE Referrals: DARREN WAITE MD (PCP) Justification of Admission: Justification of Admission: Justification of Admission Dx: Yes Comments: beta narcisa overdose, bradycardia. BRANDI LOVE DO Jun 09, 2020 14:57
[2020-06-09] MEDS ORDERED: IV NORMAL SALINE 1,000ML 1,000 ML IV ONE (15:00)
--- NOTE | 2020-06-09 15:10 | EKG ---
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
[2020-06-09 15:17] LABS: BASO % 0 % (0-3); EOS # 0.2 x10^3/uL (0.0-0.7); EOS % 3 % (0-3); HEMATOCRIT 34.4 % (36.0-47.0); HEMOGLOBIN 11.3 g/dL (12.0-15.5); LYMPH # 1.2 x10^3/uL (1.0-4.8); LYMPH % 19 % (24-48); MEAN CORPUSCULAR HEMOGLOBIN 32 pg (25-35); MEAN CORPUSCULAR HGB CONC 33 g/dL (31-37); MEAN CORPUSCULAR VOLUME 97 fL (79-100); MONO # 0.4 x10^3/uL (0.0-1.1); MONO % 6 % (0-9); NEUT # 4.7 x10^3uL (1.8-7.7); NEUT % 72 % (31-73); PLATELET COUNT 164 x10^3/uL (140-400); RED BLOOD COUNT 3.54 x10^6/uL (3.50-5.40); RED CELL DISTRIBUTION WIDTH 14.7 % (11.5-14.5); WHITE BLOOD COUNT 6.5 x10^3/uL (4.0-11.0)
--- NOTE | 2020-06-09 15:23 | RAD ---
CHEST AP ONLY 06/09/2020 2:58 PM INDICATION: Hyperglycemia COMPARISON: 11/03/2017 TECHNIQUE: Portable frontal view of the chest is provided. FINDINGS: The cardiomediastinal silhouette is borderline enlarged, stable. Left chest wall infusion port catheter is identified with the distal tip projecting over the cavoatrial junction. Lungs are clear. There are no significant pleural effusions. There is no pulmonary vascular congestion. No pneumothorax. No suspicious osseous abnormality. IMPRESSION: There is no acute cardiopulmonary process. Electronically signed by: Latrice Byrne MD (06/09/2020 3:21 PM) [id number]
[2020-06-09 15:41] LABS: PHOSPHORUS 2.5 mg/dL (2.6-4.7)
[2020-06-09 15:58] LABS: ALBUMIN 2.9 g/dL (3.4-5.0); ALBUMIN/GLOBULIN RATIO 0.7 (1.0-1.7); CALCIUM 8.7 mg/dL (8.5-10.1); CREATININE 0.9 mg/dL (0.6-1.0); GFR 61.5; MAGNESIUM 1.8 mg/dL (1.8-2.4); POTASSIUM 4.3 mmol/L (3.5-5.1); TOTAL BILIRUBIN 1.1 mg/dL (0.2-1.0); TOTAL PROTEIN 6.8 g/dL (6.4-8.2)
[2020-06-09 17:36] VITALS: BP 139/57
[2020-06-09] MEDS ORDERED: DEXTROSE 50% 25 GM / 50ML DISP.SYRIN. IV PRN (18:00)
--- NOTE | 2020-06-09 18:09 | NUR ---
PATIENT IS 70 Y O F, ARRIVED FROM ED TO ROOM 107, PATIENT BLOOD SUGAR OBTAINED AND 346, PATIENT IS A/O X4, CALM AND COOPERATIVE, DENIED PAIN, DENIED N/V/D, PATIENT STATED SHE DID NOT HAVE ANY SYMPTOMS , SHE RECEIVED A PHONE CALL FROM THE DOCTOR OFFICE AND RECOMMENDED TO GO TO THE HOSPITAL BECAUSE HER BLOOD GLUCOSE RESULT WAS ELEVATED. PHYSICIAN NOTIFIED, ORDERS FROM MD OBTAINED, CONSULT FOR REVENUE TAX SPECIALIST CALLED. PATIENT WAS ORIENTED TO THE ROOM, UNIT AND HOSPITAL POLICIES. WILL CONTINUE TO MONITOR.
[2020-06-09] MEDS: INSULIN LISPRO 300 UNITS/3 ML VIAL. SQ SCH (18:32)
[2020-06-09] MEDS ORDERED: HYDROcodone/APAP 5/325MG 1 TAB TABLET PO PRN (18:45)
[2020-06-09] MEDS ORDERED: ZOLPIDEM 5 MG TABLET. PO PRN (18:45)
[2020-06-09] MEDS ORDERED: metFORMIN 500 MG TABLET PO SCH (19:00)
--- NOTE | 2020-06-09 19:45 | NUR ---
PT REPORTS HER HOME DOSE OF METFORMIN WAS RECENTLY INCREASED TO 1000MG (TWO 500MG TABS) TWICE DAILY WITH MEALS, BUT SHE HAS NOT PICKED UP HER LATEST SCRIPT FROM THE PHARMACY YET. METFORMIN UPDATED IN MED REC.
[2020-06-09] MEDS ORDERED: INSULIN GLARGINE SYRINGE. SQ SCH (21:00)
[2020-06-09] MEDS ORDERED: metFORMIN XR 500 MG TAB.ER.24H PO SCH (21:00)
[2020-06-09] MEDS ORDERED: DOXYCYCLINE HYCLATE 100 MG TABLET PO SCH (21:00)
[2020-06-09] MEDS: ATORVASTATIN CALCIUM 20 MG TABLET PO SCH (21:09)
[2020-06-09] MEDS: metFORMIN 500 MG TABLET PO SCH (21:09)
[2020-06-09] MEDS ORDERED: SPIR50TA4 PO (22:50)
[2020-06-09] MEDS ORDERED: INSU100I32 SQ (22:50)
[2020-06-09 22:57] VITALS: BP 130/51
[2020-06-10 02:10] LABS: BARBITURATES NEG (NEG); BENZODIAZEPINES NEG (NEG); CANNABINOIDS NEG (NEG); COCAINE NEG (NEG); METHADONE NEG (NEG); OPIATES NEG (NEG); PHENCYCLIDINE NEG (NEG)
[2020-06-10 02:20] LABS: BACTERIA,URINE FEW /HPF (0-FEW); BILIRUBIN,URINE NEG (NEG); CLARITY,URINE HAZY; COLOR,URINE STRAW; GLUCOSE,URINE NEG (NEG); NITRITE,URINE NEG (NEG); RBC,URINE OCC /HPF (0-2); SQUAMOUS EPITHELIAL CELL,UR FEW /LPF; UROBILINOGEN,URINE 0.2 mg/dL (0.2 mg/dL)
[2020-06-10 02:25] LABS: AMPHETAMINE/METHAMPHETAMINE NEG (NEG)
[2020-06-10 05:57] VITALS: BP 125/55
[2020-06-10] MEDS: ASPIRIN CHEWABLE 81 MG TABLET. PO SCH (08:37)
[2020-06-10] MEDS: CETIRIZINE HCL 10 MG TABLET PO SCH (08:37)
[2020-06-10] MEDS: metFORMIN 500 MG TABLET PO SCH ×2 (08:38→17:42)
[2020-06-10] MEDS: INSULIN LISPRO 300 UNITS/3 ML VIAL. SQ SCH ×3 (08:39→17:43)
[2020-06-10] MEDS ORDERED: Influenza vaccine per PROTOCOL. MC PRN (09:00)
[2020-06-10] MEDS ORDERED: FUROSEMIDE 20 MG TABLET PO SCH (09:00)
[2020-06-10 11:24] VITALS: BP 131/68
--- NOTE | 2020-06-10 12:06 | PDOC2 ---
CONSULT DOS: DATE: 06/10/20 TIME: 12:06 Reason for Consult: Bradycardia Referring Physician: Dr. Montez Chief Complaint Hyperglycemia Source: Chart review, Patient Problem List Problems Medical Problems: (1) Beta narcisa toxicity Status: Acute (2) Sinus bradycardia Status: Acute (3) Uncontrolled diabetes mellitus Status: Acute History of Present Illness 70-year-old female with history of diabetes was sent to ED by PCP after she was found to have hypoglycemia with BS in 500's. She was found to be bradycardic prompting cardiology consultation. She takes metoprolol 12.5 mg twice daily at home, presently on hold. She has history of chronic diastolic heart failure but has not had any recent cardiology follow-up. She denied any history of arrhythmias. She denied any chest pain, orthopnea/PND, dizziness/lightheadedness, palpitations or syncope. Past Medical History Hypertension Diabetes mellitus type 2 CVA CAD mentioned in her chart but patient denied any stent placement Anxiety Chronic diastolic heart failure Past Surgical History Cholecystectomy Whipple surgery for pancreatic cancer Family History Not contributory Social History Patient denied any smoking, alcohol or drug use Current Medications Current Medications Sodium Chloride 1,000 ml @ 1,000 mls/hr 1X ONCE IV Last administered on 06/09/20at 15:06; Start 06/09/20 at 15:00; Stop 06/09/20 at 15:59; Status DC Insulin Human Lispro (HumaLOG) 0-9 UNITS TIDWMEALS SQ Last administered on 06/10/20at 08:39; Start 06/09/20 at 18:30 Dextrose (Dextrose 50%-Water Syringe) 12.5 gm PRN Q15MIN PRN IV SEE COMMENTS; Start 06/09/20 at 18:00 Aspirin (Aspirin Chewable) 81 mg DAILY PO Last administered on 06/10/20at 08:37; Start 06/10/20 at 09:00 Atorvastatin Calcium (Lipitor) 20 mg QHS PO Last administered on 06/09/20at 21:09; Start 06/09/20 at 21:00 Cetirizine HCl (ZyrTEC) 10 mg DAILY PO Last administered on 06/10/20at 08:37; Start 06/10/20 at 09:00 Doxycycline Hyclate (Vibra-Tab) 100 mg BID PO ; Start 06/09/20 at 21:00; Stop 06/09/20 at 18:42; Status DC Furosemide (Lasix) 20 mg DAILY PO ; Start 06/10/20 at 09:00 Acetaminophen/ Hydrocodone Bitart (Lortab 5/325) 1 tab PRN Q6HRS PRN PO PAIN; Start 06/09/20 at 18:45 Metformin HCl (Glucophage) 500 mg BIDWMEALS PO ; Start 06/09/20 at 19:00; Stop 06/09/20 at 18:55; Status DC Metformin HCl (Glucophage Xr) 500 mg BID PO ; Start 06/09/20 at 21:00; Stop 06/09/20 at 19:23; Status DC Insulin Glargine (Lantus Syringe) 10 unit QHS SQ Last administered on 06/09/20at 21:00; Start 06/09/20 at 21:00 Zolpidem Tartrate (Ambien) 5 mg PRN QHS PRN PO INSOMNIA, MAY REPEAT IN 1HR; Start 06/09/20 at 18:45 Metformin HCl (Glucophage) 1,000 mg BIDWMEALS PO Last administered on 06/10/20at 08:38; Start 06/09/20 at 20:00 Info (FLU VACCINE per PROTOCOL) 1 ea PRN 1X PRN MC PER PROTOCOL; Start 06/10/20 at 09:00 Active Scripts Active Doxycycline Hyclate 100 Mg Tablet 100 Mg PO BID 10 Days Reported Spironolactone 50 Mg Tablet 50 Mg PO DAILY Basaglar Kwikpen U-100 (Insulin Glargine,Hum.rec.anlog) 100 Unit/1 Ml Insuln.pen 30 Units SQ DAILY Hydrocodone-Apap 5-325 (Hydrocodone Bit/Acetaminophen) 1 Each Tablet 1-2 Tab PO PRN Q4-6HRS PRN TAKE NEEDED. Probiotic (Lactobacillus Acidophilus) 1 Each Capsule 1 Each PO DAILY LAST DOSE GIVEN: DATE: WEDNESDAY 10/04 TIME: 9AM NEXT DOSE DUE: DATE: THURSDAY 10/05 TIME: 9AM Metformin Hcl 500 Mg Tablet 1,000 Mg PO BIDWMEALS NEXT DOSE DUE: DATE: BEFORE YOUR TIME: NEXT MEAL Metoprolol Tartrate 25 Mg Tablet 12.5 Mg PO BID LAST DOSE GIVEN: DATE: WEDNESDAY 10/04 TIME: 9AM NEXT DOSE DUE: DATE: WEDNESDAY 10/04 TIME: 9PM Cetirizine Hcl 10 Mg Tablet 10 Mg PO DAILY NEXT DOSE DUE: DATE: THURSDAY 10/05 TIME: 9AM Atorvastatin Calcium 20 Mg Tablet 20 Mg PO QHS NEXT DOSE DUE: DATE: WEDNESDAY 10/04 TIME: 9PM Aspirin 81 Mg Tab.chew 81 Mg PO DAILY LAST DOSE GIVEN: DATE: WEDNESDAY 10/04 TIME: 9AM NEXT DOSE DUE: DATE: THURSDAY 10/05 TIME: 9AM Allergies: Coded Allergies: No Known Drug Allergies (Unverified , 06/09/20) PSYCHOLOGICAL ROS: No: Hallucinations Eyes: No: Loss of vision HEENT: No: Epistaxis Respiratory: No: Hemoptysis, Shortness of breath Cardiovascular: No: Palpitations Gastrointestinal: No: Vomiting, Diarrhea Genitourinary: No: Henaturia Neurological: No: Seizures Skin: No: Rash General: Alert, Oriented X3 HEENT: Atraumatic, PERRLA Lungs: Clear to auscultation Heart: Regular rate Abdomen: Soft, No tenderness Extremities: No edema Psych/Mental Status: Mood NL VITALS Vital Signs Date Time Temp Pulse Resp B/P (MAP) Pulse Ox O2 Delivery O2 Flow Rate FiO2 06/10/20 11:24 98.3 50 20 131/68 (89) 95 Room Air Labs Laboratory Tests Test 06/09/20 14:49 06/09/20 14:55 06/09/20 14:56 06/09/20 17:14 Glucose (Fingerstick) 513 mg/dL (70-99) 346 mg/dL (70-99) Sodium Level 132 mmol/L (136-145) Potassium Level 4.3 mmol/L (3.5-5.1) Chloride Level 101 mmol/L (98-107) Carbon Dioxide Level 23 mmol/L (21-32) Anion Gap 8 (6-14) Blood Urea Nitrogen 14 mg/dL (7-20) Creatinine 0.9 mg/dL (0.6-1.0) Estimated GFR (Cockcroft-Gault) 61.5 BUN/Creatinine Ratio 16 (6-20) Glucose Level 503 mg/dL (70-99) Calcium Level 8.7 mg/dL (8.5-10.1) Magnesium Level 1.8 mg/dL (1.8-2.4) Total Bilirubin 1.1 mg/dL (0.2-1.0) Aspartate Amino Transf (AST/SGOT) 51 U/L (15-37) Alanine Aminotransferase (ALT/SGPT) 75 U/L (14-59) Alkaline Phosphatase 143 U/L (46-116) Total Protein 6.8 g/dL (6.4-8.2) Albumin 2.9 g/dL (3.4-5.0) Albumin/Globulin Ratio 0.7 (1.0-1.7) White Blood Count 6.5 x10^3/uL (4.0-11.0) Red Blood Count 3.54 x10^6/uL (3.50-5.40) Hemoglobin 11.3 g/dL (12.0-15.5) Hematocrit 34.4 % (36.0-47.0) Mean Corpuscular Volume 97 fL (79-100) Mean Corpuscular Hemoglobin 32 pg (25-35) Mean Corpuscular Hemoglobin Concent 33 g/dL (31-37) Red Cell Distribution Width 14.7 % (11.5-14.5) Platelet Count 164 x10^3/uL (140-400) Neutrophils (%) (Auto) 72 % (31-73) Lymphocytes (%) (Auto) 19 % (24-48) Monocytes (%) (Auto) 6 % (0-9) Eosinophils (%) (Auto) 3 % (0-3) Basophils (%) (Auto) 0 % (0-3) Neutrophils # (Auto) 4.7 x10^3uL (1.8-7.7) Lymphocytes # (Auto) 1.2 x10^3/uL (1.0-4.8) Monocytes # (Auto) 0.4 x10^3/uL (0.0-1.1) Eosinophils # (Auto) 0.2 x10^3/uL (0.0-0.7) Basophils # (Auto) 0.0 x10^3/uL (0.0-0.2) Bedside Venous pH 7.38 (7.32-7.42) Bedside Venous pCO2 34 mmHg (41-51) Bedside Venous pO2 34 mmHg (20-40) Venous Blood HCO3 20 mmol/L (24-28) POC Venous O2 Saturation (Shannan) 65 % Bedside FiO2 21 Lactic Acid Level 1.6 mmol/L (0.4-2.0) Phosphorus Level 2.5 mg/dL (2.6-4.7) Troponin I Quantitative 0.030 ng/mL (0-0.055) Lipase 14 U/L (73-393) Acetone Level Neg (NEG) Test 06/09/20 19:55 06/09/20 23:59 06/10/20 07:29 06/10/20 11:48 Glucose (Fingerstick) 362 mg/dL (70-99) 155 mg/dL (70-99) 230 mg/dL (70-99) Urine Collection Type Void Urine Color Straw Urine Clarity Hazy Urine pH 6.5 Urine Specific Brusett 1.010 Urine Protein Neg (NEG-TRACE) Urine Glucose (UA) Neg mg/dL (NEG) Urine Ketones (Stick) Neg mg/dL (NEG) Urine Blood Small (NEG) Urine Nitrite Neg (NEG) Urine Bilirubin Neg (NEG) Urine Urobilinogen Dipstick 0.2 mg/dL (0.2 mg/dL) Urine Leukocyte Esterase Trace (NEG) Urine RBC Occ /HPF (0-2) Urine WBC 1-4 /HPF (0-4) Urine Squamous Epithelial Cells Few /LPF Urine Transitional Epithelial Cells Occ /LPF Urine Renal Epithelial Cells Occ /LPF Urine Bacteria Few /HPF (0-FEW) Urine Opiates Screen Neg (NEG) Urine Methadone Screen Neg (NEG) Urine Barbiturates Neg (NEG) Urine Phencyclidine Screen Neg (NEG) Urine Amphetamine/Methamphetamine Neg (NEG) Urine Benzodiazepines Screen Neg (NEG) Urine Cocaine Screen Neg (NEG) Urine Cannabinoids Screen Neg (NEG) Urine Ethyl Alcohol Neg (NEG) Assessment/Plan 1. Sinus bradycardia, improving with holding beta-blockers. Telemetry did not show any pauses. Patient denied any symptoms of dizziness, lightheadedness or syncope. Will consider 2D echo and event monitor as an outpatient. 2. Diabetes mellitus type 2 with hyperglycemia. Treat per PCP. 3. Hypertension: Controlled 4. Chronic diastolic heart failure, clinically well compensated. 2D echo in 2018 showed normal LV systolic function. Plan to repeat this as an outpatient. 5. Hyperlipidemia: Continue statin therapy Thank you for your consultation LUIS MANUEL DANIEL MD Jun 10, 2020 12:06
[2020-06-10] MEDS: SPIRONOLACTONE 25 MG TABLET PO SCH (12:54)
--- NOTE | 2020-06-10 13:34 | HP ---
ADMIT DATE: HISTORY OF PRESENT ILLNESS: A 70-year-old female came in through the Emergency Room with history of pancreatic cancer, Whipple surgery in 11/2016, hyperlipidemia. The patient had glucose and blood sugars over 500. The patient states she takes 20 units of insulin daily. She was on metformin, but was recalled for the NDMA and then has been also noted to have a marked bradycardia down in the 40s. The patient was admitted for further evaluation for her severe hyperglycemia, severe bradycardia. PAST MEDICAL HISTORY: As noted, she has a history of pancreatic cancer for which she is being treated at ; hearing problems; CVA; TIAs; hypercholesterolemia; hypertension; abdominal surgery; gallbladder removed; pancreatic surgery; diabetes. Pneumococcal vaccinations are up-to-date. FAMILY HISTORY: Positive for colon cancer, heart failure and diabetes. ALLERGIES: No known allergies. MEDICATIONS: Include Zyrtec, doxycycline, atorvastatin, spironolactone 50, aspirin, hydrocodone, metformin 1000 mg b.i.d. and Basaglar 30 units daily. REVIEW OF SYSTEMS: The patient denies any headaches, visual change, blurred vision, double vision. Does have some weakness and dry cough, but nothing remarkable there. No nausea or vomiting. PHYSICAL EXAMINATION: GENERAL: The patient otherwise on exam is a very pleasant white female looking stated age, but quite ill. VITAL SIGNS: Blood pressure 130/60, respiratory rate 20, pulse down to 44. HEENT: The patient's head was atraumatic, normocephalic. Eyes: PERRLA without jaundice. The mouth and throat were normal. Poor dentition. NECK: Supple, without JVD, carotid bruits or thyromegaly. LUNGS: Diminished throughout. CARDIOVASCULAR: Bradycardia, but regular sinus rhythm. ABDOMEN: Soft, diffuse tenderness, no rebound or guarding. Positive bowel sounds, no hepatosplenomegaly. EXTREMITIES: No clubbing, cyanosis, nor edema. LABORATORY DATA: The patient's sodium is 132, potassium 4.3, blood sugar 513, bilirubin 1.1, elevated liver enzymes of 5175 and 143 for AST, ALT and alkaline phosphatase. The patient had a blood gas, looks like a venous stick. White count 6.5, hemoglobin and hematocrit 11 and 34. ASSESSMENT: History of pancreatic cancer, elevated liver enzymes. PLAN: The patient otherwise will be admitted for further evaluation and treatment of her bradycardia, hyperglycemia, fluids hydration, adjust her insulins and make further evaluation on her to get her sugar under better control. DARREN WAITE MD DR: JOSEPHINE/macho JOB#: [id number] / [id number]
[2020-06-10 16:12] VITALS: BP 131/60
[2020-06-10 19:38] VITALS: BP 129/63
[2020-06-10] MEDS: ATORVASTATIN CALCIUM 20 MG TABLET PO SCH (20:37)
[2020-06-10] MEDS ORDERED: INSULIN GLARGINE SYRINGE. SQ SCH (21:00)
[2020-06-10 23:36] VITALS: BP 119/66
[2020-06-11 05:21] VITALS: BP 109/64
[2020-06-11] MEDS: INSULIN LISPRO 300 UNITS/3 ML VIAL. SQ SCH ×2 (08:00→12:31)
--- NOTE | 2020-06-11 08:06 | RAD ---
EXAM: CT Abdomen and Pelvis without IV contrast INDICATION: Reason: ELEVATED LFT'S , HX OF PANCREATIC CANCER / Spl. Instructions: / History: TECHNIQUE: Multi-detector row CT images were acquired from the lung bases through the abdomen and pelvis without the use of IV contrast. Sagittal and coronal images were acquired from the transaxial data. All CT scans performed at this facility utilize dose optimization techniques as appropriate to the exam, including the following: Automated exposure control and adjustment of the mA and/or KV according to patient size (this includes techniques or standardized protocols for targeted exams where dose is indication/reason for exam). ORAL CONTRAST: None COMPARISON: 12/21/[address] with IV contrast FINDINGS: The absence of IV contrast limits evaluation of soft tissue pathology. LOWER CHEST: Unremarkable LIVER: Hypodense, consistent with fatty infiltration. No discrete hepatic masses identified. BILIARY SYSTEM: Gallbladder surgically absent. There is pneumobilia in the left hepatic bile ducts. Bile ducts are not dilated. PANCREAS: Postop changes from previous Whipple are redemonstrated with diffuse main pancreatic ductal dilation still present, more apparent on the prior, contrast enhanced study.. SPLEEN: Unremarkable ADRENALS: Unremarkable KIDNEYS & URETERS: Mild bilateral perirenal soft tissue stranding. No hydronephrosis or hydroureter. No calcified stones. BLADDER: Unremarkable REPRODUCTIVE ORGANS: Unremarkable GASTROINTESTINAL: Stool-filled large bowel. Short segment transverse colon containing jeff-incisional ventral abdominal wall hernia with a 3.3 cm wide neck. The appendix is normal. There are no findings of bowel obstruction or perforation and no findings of acute inflammation. Fluid gas-filled small bowel loops near the jejunojejunostomy anastomosis. MESENTERY/PERITONEUM/RETROPERITONEUM: Mild soft tissue stranding surrounding the mesenteric vessels, notably the SMV and ileocolic branch vessels.. VASCULAR: Abdominal aortic calcifications. No aneurysm. LYMPH NODES: No adenopathy OSSEOUS & SOFT TISSUES: A second ventral abdominal hernia containing just fat is present just above the umbilicus with a 3.4 cm. Correlate. IMPRESSION: Postop changes from Whipple with stool-filled large bowel and some fluid-filled small bowel loops showing no obvious findings of obstruction. No specific findings on noncontrast CT to explain elevated LFTs although liver shows fatty infiltration, which could reflect steatohepatitis. Electronically signed by: Star Bueno MD (06/11/2020 8:03 AM) [facility]
[2020-06-11] MEDS: SPIRONOLACTONE 25 MG TABLET PO SCH (08:21)
[2020-06-11] MEDS: metFORMIN 500 MG TABLET PO SCH (08:21)
[2020-06-11] MEDS: CETIRIZINE HCL 10 MG TABLET PO SCH (08:21)
[2020-06-11] MEDS: ASPIRIN CHEWABLE 81 MG TABLET. PO SCH (08:21)
[2020-06-11] MEDS ORDERED: FLU VACC QS 2020-21(6MOS+)/PF 0.5 ML SYRINGE. VAX IM ONE (09:00)
--- NOTE | 2020-06-11 13:31 | NUR ---
Patient discharged to home. All patient belongings sent home with patient. Patient given discharge instructions and voiced understanding. Patient ambulated off unit with staff to family vehicle.
--- NOTE | 2020-06-14 12:42 | DS ---
DATE OF DISCHARGE: 06/11/2020 HOSPITAL COURSE: This is a pleasant 70-year-old female. She has a history of colon cancer, pancreatic cancer, treated down at , had a Whipple procedure in 2017. The patient's blood sugars were over 500. The patient was brought in with dehydration as well as severe hyperglycemia. The patient in turn also had noted elevated liver enzymes. Her blood sugars were brought down with sliding scale and additional fluids. The patient's labs, CBC was basically unremarkable. The patient's blood sugars as noted were up as high as 515 roughly and came down into the low 100s. Lipase was low. BUN and creatinine was normal at 14 and 0.9. Albumin low at 2.9. The patient in turn made a good progress. Her chest x-ray was unremarkable with no acute process and the abdomen CT was basically stool filled large bowel; otherwise, unremarkable, possibly some steatohepatitis noted with fatty liver infiltrate, but otherwise, the patient made excellent progress during the rest of her hospitalization. Last blood pressure 110/60, respiratory rate 18, pulse 50, afebrile. The patient was discharged home. IMPRESSION: Therefore, poorly controlled diabetes with severe hyperglycemia, dehydration, history of pancreatic cancer, anemia of chronic disease. The patient was discharged home. She will be on a diabetic diet, decreased activity, and follow up accordingly as indicated. DARREN WAITE MD DR: JOSEPHINE/macho JOB#: [id number] / [id number]
== END 2020-06-11 13:41 | disposition home or self-care (01) | DRG 638 ==
LOC: ER 14:32 → 1 SOUTH 16:15
PROVIDERS: ADMIT Family Medicine; ATTEND Family Medicine
DX: E11.65 Type 2 diabetes mellitus with hyperglycemia (principal); I50.32 Chronic diastolic (congestive) heart failure; E44.0 Moderate protein-calorie malnutrition; E86.0 Dehydration; R00.1 Bradycardia, unspecified; E78.00 Pure hypercholesterolemia, unspecified; E78.5 Hyperlipidemia, unspecified; I11.0 Hypertensive heart disease with heart failure; F41.9 Anxiety disorder, unspecified; I25.10 Atherosclerotic heart disease of native coronary artery without angina pectoris; D63.8 Anemia in other chronic diseases classified elsewhere; R74.8 Abnormal levels of other serum enzymes; T44.7X5A Adverse effect of beta-adrenoreceptor antagonists, initial encounter; Z80.0 Family history of malignant neoplasm of digestive organs; Z82.49 Family history of ischemic heart disease and other diseases of the circulatory system; Z83.3 Family history of diabetes mellitus; Z85.07 Personal history of malignant neoplasm of pancreas; Z86.73 Personal history of transient ischemic attack (TIA), and cerebral infarction without residual deficits; Y92.89 Other specified places as the place of occurrence of the external cause; Z68.20 Body mass index [BMI] 20.0-20.9, adult; Z85.038 Personal history of other malignant neoplasm of large intestine
CPT/HCPCS: 36415; 71045; 74176; 80053; 80307; 81001; 82010; 82803; 82947; 83605; 83690; 83735; 84100; 84484; 85025; 87040; 87086; 90471; 93005; 96360; J1815; 90686; 99285-25; J7030

== ENCOUNTER 2020-10-15 09:50 | Inpatient (IN) | payer MEDICARE ==
[~2020-10-15] VITALS: Ht 160 cm; Wt 59.9 kg
[~2020-10-15 09:50] MED LIST changes: +INSU100I32 SQ; +SPIR50TA4 PO
[2020-10-15] MEDS ORDERED: IV NORMAL SALINE 1,000ML 1,000 ML IV ONE ×2 (10:00→11:15)
--- NOTE | 2020-10-15 10:14 | RAD ---
CT STROKE HEAD W/O History: Reason: ams / Spl. Instructions: / History: Comparison: December 29, 2005 Technique: Noncontrast CT imaging was performed of the head. Exposure: One or more of the following individualized dose reduction techniques were utilized for thi s examination: 1. Automated exposure control 2. Adjustment of the mA and/or kV according to patient size 3. Use of iterative reconstruction technique. Findings: No intracranial hemorrhage. No mass effect. No hydrocephalus. Mild brain parenchymal volume loss, increased compared to 2006. Mild foci of decreased attenuation wi thin the hemispheric white matter, most often due to chronic microvascular ischemia. Imaged orbits are unremarkable. Imaged paranasal sinuses and mastoid air cells are clear. No acute ca lvarial fracture. Impression: 1. No acute intracranial abnormality. If persistent clinical concern for acute ischemia, MRI can bet ter evaluate. 2. Mild sequelae of chronic microvascular ischemia. Electronically signed by: Hector Villalta DO (10/15/2020 10:11 AM) [id number]
--- NOTE | 2020-10-15 10:23 | RAD ---
CT CERVICAL SPINE WO History:Reason: fall / Spl. Instructions: / History: . Pain Technique: Noncontrast CT imaging was performed of the cervical spine. Multiplanar images are reviewe d. Exposure: One or more of the following individualized dose reduction techniques were utilized for thi s examination: 1. Automated exposure control 2. Adjustment of the mA and/or kV according to patient size 3. Use of iterative reconstruction technique. Comparison: None Findings: Mild motion degraded evaluation through the mid cervical spine. Normal vertebral body height. Normal alignment. No fracture. TMJ arthropathy. Mild ethmoid sinus chronic ununited right mid clavicular fracture. Mild multilevel degenerative disc changes most prominent C4-C5 and C5-C6. Facet arthropathy. Multilev el neuroforaminal narrowing. No high-grade canal stenosis. Mucosal thickening. Mastoid air cells are clear. Impression: 1. No acute fracture or subluxation of the cervical spine. 2. Mild multilevel cervical spondylosis. Electronically signed by: Hector Villalta DO (10/15/2020 10:20 AM) [id number]
--- NOTE | 2020-10-15 10:36 | RAD ---
INDICATION: Reason: ams / Spl. Instructions: / History: COMPARISON: June 09, 2020 FINDINGS: Single view of chest obtained. Left-sided port with tip at the atriocaval junction region. Cardiac mediastinal silhouette is promine nt but likely exaggerated by portable technique. Hypoexpanded exam the lungs with mild interstitial opacities bilaterally. Vertically oriented line al colton the right lateral chest Old right displaced nonunion clavicle fracture. IMPRESSION: * Hypoexpanded exam with mild interstitial opacities. A portion this could be secondary to crowding of the lung markings secondary to hypoexpansion but mild edema or interstitial infiltrate could have this appearance. * Vertically oriented line along the right lateral thorax. Lung markings appear to extend peripheral to this therefore would favor skin fold. Electronically signed by: Anoop Lucas MD (10/15/2020 10:34 AM) [id number]
[2020-10-15 10:45] LABS: BASO % 0 % (0-3); EOS % 0 % (0-3); HEMATOCRIT 28.6 % (36.0-47.0); HEMOGLOBIN 9.5 g/dL (12.0-15.5); LYMPH # 0.7 x10^3/uL (1.0-4.8); LYMPH % 8 % (24-48); MEAN CORPUSCULAR HEMOGLOBIN 33 pg (25-35); MEAN CORPUSCULAR HGB CONC 33 g/dL (31-37); MEAN CORPUSCULAR VOLUME 99 fL (79-100); MONO # 1.1 x10^3/uL (0.0-1.1); MONO % 12 % (0-9); NEUT # 6.9 x10^3uL (1.8-7.7); NEUT % 79 % (31-73); PLATELET COUNT 166 x10^3/uL (140-400); WHITE BLOOD COUNT 8.8 x10^3/uL (4.0-11.0)
--- NOTE | 2020-10-15 10:57 | PHYS DOC ---
Past History Past Medical History: Anxiety, CAD, Cancer, CVA, Diabetes, Hypotension, Stroke Past Surgical History: Cholecystectomy, Other Additional Past Surgical Histo: PANCREAS REMOVED DUE TO CANCER Alcohol Use: None Drug Use: None General Adult EDM: Chief Complaint: ALTERED MENTAL STATUS HPI: HPI: Patient is a 70-year-old female brought from home via EMS as a possible stroke. Per EMS report they were called for altered mental status, patient's sister who lives with her states she found her on the floor but is unclear if she fell or her last known normal. On EMS arrival she was slumped over on couch. Her blood sugar was checked and it registered as low (less than 30) she was given 100 mL of D10. With a repeat blood sugar at 98. On arrival her blood glucose was 57 and given more dextrose Patient wakes up to voice and tries to cooperate but appears very sleepy. Patient has no complaints of pain. Per chart review patient was hospitalized in May 2020 for bradycardia and poorly controlled type 2 diabetes. Patient also has a history of pancreatic cancer status post Whipple, colon cancer, insulin-dependent diabetes, CVA and previous TIAs, hypertension, dyslipidemia and is hard of hearing. Per son patient is poorly compliant with checking her blood sugar. He talks to her regularly, last time about a day and a half ago and she was at her baseline self. He states she is normally talkative and coherent. Sister states that patient was feeling unwell yesterday and that was the last time she saw her normal. Review of Systems: Review of Systems: All other systems within normal limits except for as noted in the HPI Current Medications: Current Meds: Current Medications Medications (Trade) Dose Ordered Sig/Alice Start Time Stop Time Status Last Admin Dose Admin Sodium Chloride 1,000 ml @ 1,000 mls/hr Q1H ONCE 10/15/20 10:00 10/15/20 10:59 10/15/20 10:00 1,000 MLS/HR Allergies: Allergies: Allergies Coded Allergies Type Severity Reaction Last Updated Verified No Known Drug Allergies 06/09/20 No Physical Exam: PE: Constitutional: Well developed, well nourished, no acute distress, lying with eyes closed [] HENT: Normocephalic, atraumatic, bilateral external ears normal, nose normal, dry mucous membranes. [] Eyes: PERRLA, conjunctiva normal, no discharge. [] Neck: No rigidity, supple, no stridor. [] Cardiovascular: Regular rate and rhythm, brisk cap refill [] Lungs & Thorax: Non labored symmetric respirations, no tachypnea or respiratory distress [] Abdomen: Soft, nondistended, no grimacing or guarding on exam, umbilical and ventral hernias present easily reducible.. Skin: Warm, dry, no erythema, no rash. Area of bruising on right forearm [] Back: Unremarkable Extremities: No deformities, range of motion grossly intact, no lower extremity edema [] Neurologic: GCS 14, no grossly noticeable focal deficits, exam limited by patient cooperation [] [] Current Patient Data: Labs: Laboratory Tests Test 10/15/20 10:05 10/15/20 10:07 POC Venous pH 7.37 (7.32-7.42) POC Venous pCO2 37 mmHg (41-51) L POC Venous pO2 51 mmHg (20-40) H Venous Blood HCO3 22 mmol/L (24-28) L POC Venous O2 Saturation (Shannan) 85 % POC FiO2 21 Glucose (Fingerstick) 57 mg/dL (70-99) L Vital Signs: Vital Signs Date Time Temp Pulse Resp B/P (MAP) Pulse Ox O2 Delivery O2 Flow Rate FiO2 10/15/20 10:10 97.9 69 16 93/43 (60) 98 Room Air EKG: EKG: Sinus rhythm with a heart rate of 50 bpm, left axis deviation, low voltage EKG, no ST elevation or depression, T wave flattening throughout, no ectopy [] Radiology/Procedures: Radiology/Procedures: CT STROKE HEAD W/O History: Reason: ams / Spl. Instructions: / History: Comparison: December 29, 2005 Technique: Noncontrast CT imaging was performed of the head. Exposure: One or more of the following individualized dose reduction techniques were utilized for this examination: 1. Automated exposure control 2. Adjustment of the mA and/or kV according to patient size 3. Use of iterative reconstruction technique. Findings: No intracranial hemorrhage. No mass effect. No hydrocephalus. Mild brain parenchymal volume loss, increased compared to 2005. Mild foci of decreased attenuation within the hemispheric white matter, most often due to chronic microvascular ischemia. Imaged orbits are unremarkable. Imaged paranasal sinuses and mastoid air cells are clear. No acute calvarial fracture. Impression: 1. No acute intracranial abnormality. If persistent clinical concern for acute ischemia, MRI can better evaluate. 2. Mild sequelae of chronic microvascular ischemia. [] CT CERVICAL SPINE WO History:Reason: fall / Spl. Instructions: / History: . Pain Technique: Noncontrast CT imaging was performed of the cervical spine. Multiplanar images are reviewed. Exposure: One or more of the following individualized dose reduction techniques were utilized for this examination: 1. Automated exposure control 2. Adjustment of the mA and/or kV according to patient size 3. Use of iterative reconstruction technique. Comparison: None Findings: Mild motion degraded evaluation through the mid cervical spine. Normal vertebral body height. Normal alignment. No fracture. TMJ arthropathy. Mild ethmoid sinus chronic ununited right mid clavicular fracture. Mild multilevel degenerative disc changes most prominent C4-C5 and C5-C6. Facet arthropathy. Multilevel neuroforaminal narrowing. No high-grade canal stenosis. Mucosal thickening. Mastoid air cells are clear. Impression: 1. No acute fracture or subluxation of the cervical spine. 2. Mild multilevel cervical spondylosis. PROCEDURE: PORTABLE CHEST 1V INDICATION: Reason: ams / Spl. Instructions: / History: COMPARISON: June 09, 2020 FINDINGS: Single view of chest obtained. Left-sided port with tip at the atriocaval junction region. Cardiac mediastinal silhouette is prominent but likely exaggerated by portable technique. Hypoexpanded exam the lungs with mild interstitial opacities bilaterally. Vertically oriented line along the right lateral chest Old right displaced nonunion clavicle fracture. IMPRESSION: * Hypoexpanded exam with mild interstitial opacities. A portion this could be secondary to crowding of the lung markings secondary to hypoexpansion but mild edema or interstitial infiltrate could have this appearance. * Vertically oriented line along the right lateral thorax. Lung markings appear to extend peripheral to this therefore would favor skin fold. PROCEDURE: CT ANGIO CHEST W ABD PEL W/ ADDENDUM #1 Addendum: Additional CT images were performed through the abdomen and pelvis. As mentioned in the CTA chest report, images through the upper abdomen show fatty infiltration of the liver and some ascites. Air in the biliary tree has been demonstrated previously. There is a small cyst in the left lobe of the liver. No significant focal liver parenchymal normality is seen. The spleen appears normal. Both kidneys enhance with contrast. 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 There are renal cysts without evidence of high-grade obstruction. The adrenal glands are not enlarged. There is diffuse dilatation of the main pancreatic duct with apparent absence of the pancreatic head. A similar appearance was seen previously. There is diffuse bowel wall thickening involving portions of the small bowel and colon. There is some mesenteric edema. No localized fluid collection or abscess is seen. A normal air-filled appendix is shown arising from the cecum. There is an enclosed fluid collection that seems to rise superiorly from the distal stomach and is separate from the main lumen. This measures about 1.9 cm. This could represent a diverticulum. A small contained collection such as focal perforation could have a similar appearance. There is no free air visible. There may have been a similar appearance on the prior study Images through the pelvis show no apparent abnormality of the distal ureters. The bladder was distended at the time of the exam. Estimated volume is about 750 mL. No pelvic mass or adenopathy is seen. There is some free fluid in the pelvis. CONCLUSION: There is diffuse edema and a small amount of ascites. There is diffuse bowel wall thickening. Findings are nonspecific. This could relate to a generalized process such as hypoalbuminemia. Heart failure is also a consideration as well as portal hypertension. There is a possible small contained fluid collection extending superiorly off the distal stomach. As described further above. There is bladder distention. Electronically signed by: Yoan Robles Jr., MD (10/15/2020 1:07 PM) [id number] ORIGINAL REPORT CTA chest with and without contrast 10/15/2020. Reason for exam: Sepsis and mental status changes. Possible pulmonary embolism. Thin section images were made through the chest using an infusion of 100 mL Omnipaque 350. MIP reconstructions also were performed. Exposure: One or more of the following individualized dose reduction techniques were utilized for this examination: 1. Automated exposure control 2. Adjustment of the mA and/or kV according to patient size 3. Use of iterative reconstruction technique. Comparison is made with a previous exam of 10/02/2017. FINDINGS: Pleural effusions present previously have resolved. There is also less atelectasis in the lower lobes. There seems to be less haziness elsewhere in the lungs. There was probably previously some mild pulmonary edema. Minimal residual edema is possible. No other significant pulmonary parenchymal abnormality is seen. The central airways show no obstruction. No enlarged lymph nodes are seen. There is no evidence of aortic dissection. Evaluation of the pulmonary arterial tree shows no abnormal filling defect extending to the subsegmental branch level. Images through the upper abdomen show some probable fatty infiltration of the liver. A small amount of ascites is visible. There is some air in the biliary tree. This has been demonstrated previously. The ascites was not apparent on previous CT of 06/10/2020. IMPRESSION: No evidence of pulmonary embolism. There is some atelectasis at the lung bases and there may be mild edema, although the chest has improved since the previous thoracic CT of 10/02/2017. There is a small amount of ascites visible in the upper abdomen. Impressions: Not including dictation but SMA, celiac artery, JAVIER appear patent. Heart Score: Risk Factors: Risk Factors: DM, Current or recent (<one month) smoker, HTN, HLP, family history of CAD, obesity. Risk Scores: Score 0 - 3: 2.5% MACE over next 6 weeks - Discharge Home Score 4 - 6: 20.3% MACE over next 6 weeks - Admit for Clinical Observation Score 7 - 10: 72.7% MACE over next 6 weeks - Early Invasive Strategies Course & Med Decision Making: Course & Med Decision Making Pertinent Labs and Imaging studies reviewed. (See chart for details) Discussed with Dr. Hughes. Concern for bowel edema but patient does not have any tenderness or guarding on exam, she denies any diarrhea or blood in her stools. Small amount of ascites but too small amount to find a pocket amenable to a diagnostic paracentesis. Her temperature is low which is concerning for sepsis but could also be a result of laying on the floor overnight. After fluids and x-rays patient is more awake and alert. Patient still states that she has had no abdominal pain. Concern for surgical etiology of bowel wall and mesenteric edema low, mild elevation of lactate but no acidosis, no pain, no anion gap, and no radiology report of bowel ischemia on CTA. Evidence of urinary retention a Elizabeth placed, patient's urine suggestive of urinary tract infection. Lungs improved from previous imaging, unchanged air in liver. Multiple electrolyte deficiencies of unclear etiology. [] Dragon Disclaimer: Dragon Disclaimer: This electronic medical record was generated, in whole or in part, using a voice recognition dictation system. Departure Departure: Impression: Primary Impression: Altered mental state Additional Impressions: Hypoglycemia Pancolitis Hypophosphatemia Dehydration Hypomagnesemia Hypocalcemia UTI (urinary tract infection) Sepsis, unspecified organism Disposition: ADMITTED INPT THIS HOSP Admitting Physician: Darren Waite Condition: GUARDED Referrals: DARREN WAITE MD (PCP) VALENTINA CISSE MD Oct 15, 2020 10:57
[2020-10-15] MEDS ORDERED: PIPERACILLIN/TAZOBACTAM 3.375 GM in IV NORMAL SALINE 50ML 50 ML IV ONE (11:00)
[2020-10-15 11:04] LABS: BARBITURATES NEG (NEG); BENZODIAZEPINES NEG (NEG); CANNABINOIDS NEG (NEG); COCAINE NEG (NEG); METHADONE NEG (NEG); OPIATES NEG (NEG); PHENCYCLIDINE NEG (NEG)
[2020-10-15 11:05] LABS: AMPHETAMINE/METHAMPHETAMINE NEG (NEG)
[2020-10-15 11:07] LABS: ALBUMIN 1.9 g/dL (3.4-5.0); ALBUMIN/GLOBULIN RATIO 0.6 (1.0-1.7); CREATININE 0.9 mg/dL (0.6-1.0); GFR 61.5; MAGNESIUM 1.6 mg/dL (1.8-2.4); TOTAL BILIRUBIN 2.1 mg/dL (0.2-1.0); TOTAL PROTEIN 4.9 g/dL (6.4-8.2)
[2020-10-15 11:09] LABS: POTASSIUM 2.7 mmol/L (3.5-5.1)
[2020-10-15 11:27] LABS: BILIRUBIN,URINE NEG (NEG); CLARITY,URINE HAZY; COLOR,URINE YELLOW; GLUCOSE,URINE NEG (NEG); NITRITE,URINE POS (NEG)
[2020-10-15 11:28] LABS: BACTERIA,URINE MANY /HPF (0-FEW); RBC,URINE OCC /HPF (0-2); SQUAMOUS EPITHELIAL CELL,UR MOD /LPF
[2020-10-15] MEDS ORDERED: MAGNESIUM SULFATE 1GM 100 ML IV ONE (11:30)
[2020-10-15] MEDS ORDERED: POTASSIUM CL 40MEQ D5-0.45NACL 1,000 ML IV ONE (11:30)
[2020-10-15] MEDS ORDERED: CALCIUM GLUCONATE 1,000 MG/10 ML VIAL IV ONE (11:30)
[2020-10-15] MEDS ORDERED: IV NORMAL SALINE 50ML 50 ML ONE (11:45)
[2020-10-15] MEDS ORDERED: IOHEXOL 350 MG/ML 100 ML VIAL. IV ONE (11:45)
[2020-10-15] MEDS ORDERED: PIPERACILLIN/TAZOBACTAM 3.375 GM VIAL IV ONE (11:45)
[2020-10-15] MEDS ORDERED: CONTRAST GIVEN. MC PRN (12:00)
--- NOTE | 2020-10-15 12:31 | RAD ---
ADDENDUM #1 Addendum: Additional CT images were performed through the abdomen and pelvis. As mentioned in the CTA chest report, images through the upper abdomen show fatty infiltration of the liver and some ascites . Air in the biliary tree has been demonstrated previously. There is a small cyst in the left lobe of the liver. No significant focal liver parenchymal normality is seen. The spleen appears normal. Both kidneys enhance with contrast. 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 There are renal cysts without evidence of high-grade obstruction. The adrenal glands are not enlarged . There is diffuse dilatation of the main pancreatic duct with apparent absence of the pancreatic hea d. A similar appearance was seen previously. There is diffuse bowel wall thickening involving portion s of the small bowel and colon. There is some mesenteric edema. No localized fluid collection or absc ess is seen. A normal air-filled appendix is shown arising from the cecum. There is an enclosed fluid collection that seems to rise superiorly from the distal stomach and is separate from the main lumen . This measures about 1.9 cm. This could represent a diverticulum. A small contained collection such as focal perforation could have a similar appearance. There is no free air visible. There may have be en a similar appearance on the prior study Images through the pelvis show no apparent abnormality of the distal ureters. The bladder was distend ed at the time of the exam. Estimated volume is about 750 mL. No pelvic mass or adenopathy is seen. T here is some free fluid in the pelvis. CONCLUSION: There is diffuse edema and a small amount of ascites. There is diffuse bowel wall thicken ing. Findings are nonspecific. This could relate to a generalized process such as hypoalbuminemia. He art failure is also a consideration as well as portal hypertension. There is a possible small contained fluid collection extending superiorly off the distal stomach. As described further above. There is bladder distention. Electronically signed by: Yoan Robles Jr., MD (10/15/2020 1:07 PM) [id number] ORIGINAL REPORT CTA chest with and without contrast 10/15/2020. Reason for exam: Sepsis and mental status changes. Possible pulmonary embolism. Thin section images were made through the chest using an infusion of 100 mL Omnipaque 350. MIP recons tructions also were performed. Exposure: One or more of the following individualized dose reduction t echniques were utilized for this examination: 1. Automated exposure control 2. Adjustment of the mA and/or kV according to patient size 3. Use of iterative reconstruction technique. Comparison is mad e with a previous exam of 10/02/2017. FINDINGS: Pleural effusions present previously have resolved. There is also less atelectasis in the l ower lobes. There seems to be less haziness elsewhere in the lungs. There was probably previously bianka e mild pulmonary edema. Minimal residual edema is possible. No other significant pulmonary parenchyma l abnormality is seen. The central airways show no obstruction. No enlarged lymph nodes are seen. The re is no evidence of aortic dissection. Evaluation of the pulmonary arterial tree shows no abnormal filling defect extending to the subsegmen kvng branch level. Images through the upper abdomen show some probable fatty infiltration of the liver. A small amount o f ascites is visible. There is some air in the biliary tree. This has been demonstrated previously. T he ascites was not apparent on previous CT of 06/10/2020. IMPRESSION: No evidence of pulmonary embolism. There is some atelectasis at the lung bases and there may be mild edema, although the chest has impro yue since the previous thoracic CT of 10/02/2017. There is a small amount of ascites visible in the upper abdomen. Electronically signed by: Yoan Robles Jr., MD (10/15/2020 12:28 PM) [id number]
[2020-10-15] MEDS ORDERED: MORPHINE SULFATE 2 MG/ML DISP.SYRIN. IVP PRN (14:00)
[2020-10-15] MEDS ORDERED: ACETAMINOPHEN 325 MG TABLET PO PRN (14:00)
[2020-10-15] MEDS ORDERED: ONDANSETRON PF 4 MG/2 ML VIAL. IVP PRN (14:00)
[2020-10-15] MEDS: POTASSIUM PHOSPHATE DIBASIC 13.6 MMOL in IV NORMAL SALINE 100ML 100 ML IV SCH ×2 (14:06→17:49)
--- NOTE | 2020-10-15 15:05 | NUR ---
PT ARRIVED TO UNIT VIA EMS. PT IS STABLE AT TIME OF ADMISSION. VS OBTAINED. PT CHANGED AND REMOVED EMS SHEETS UNDER PT. SKIN CHECKED AND NO SIGNS OF WOUNDS. PT DOES HAVE A BRUISE TO RIGHT FOREARM NOTED AT ADMISSION ALONG WITH VERY DRY SKIN. PT IS ORIENTED TO ROOM AND PROCEDURES. DR WAITE NOTIFIED OF ADMISSION.
--- NOTE | 2020-10-15 15:13 | EKG ---
[facility] ED [facility] [address] [place] [id number] Test Date: 2020-10-15 Test Time: 10:05:54 Pat Name: ABRIL NAGY Department: Room: Gender: F Resaw Tailer: : 1950 Requested By: VALENTINA CISSE Order Number: [id number] Reading MD: Measurements Intervals Spurgeon Rate: 50 P: 42 ND: 182 QRS: 0 QRSD: 94 T: 66 QT: 508 QTc: 466 Interpretive Statements SINUS RHYTHM LEFTWARD AXIS LOW LIMB LEAD VOLTAGE NO SPECIFIC ECG ABNORMALITIES RI6.02 No previous ECG available for comparison
[2020-10-15 15:21] VITALS: BP 114/66
[2020-10-15] MEDS ORDERED: HYDROcodone/APAP 5/325MG 1 TAB TABLET PO PRN (16:45)
[2020-10-15] MEDS ORDERED: PIP/TAZO PER PHARMACY MC PRN (16:45)
[2020-10-15] MEDS: PIPERACILLIN/TAZOBACTAM 3.375 GM in IV NORMAL SALINE 50ML 50 ML IV SCH ×2 (17:49→23:16)
[2020-10-15 19:00] VITALS: BP 110/59
[2020-10-15] MEDS: ENOXAPARIN 40 MG/0.4 ML SYRINGE. SQ SCH (21:07)
[2020-10-15] MEDS: INSULIN GLARGINE SYRINGE. SQ SCH (21:07)
[2020-10-16 00:12] VITALS: BP 105/55
[2020-10-16] MEDS: PIPERACILLIN/TAZOBACTAM 3.375 GM in IV NORMAL SALINE 50ML 50 ML IV SCH ×4 (05:04→23:40)
[2020-10-16 05:19] VITALS: BP 92/52
[2020-10-16 06:08] LABS: BASO % 1 % (0-3); EOS # 0.2 x10^3/uL (0.0-0.7); EOS % 3 % (0-3); HEMATOCRIT 28.1 % (36.0-47.0); HEMOGLOBIN 9.6 g/dL (12.0-15.5); LYMPH # 1.3 x10^3/uL (1.0-4.8); LYMPH % 23 % (24-48); MEAN CORPUSCULAR HEMOGLOBIN 34 pg (25-35); MEAN CORPUSCULAR HGB CONC 34 g/dL (31-37); MEAN CORPUSCULAR VOLUME 98 fL (79-100); MONO # 0.6 x10^3/uL (0.0-1.1); MONO % 11 % (0-9); NEUT # 3.6 x10^3uL (1.8-7.7); NEUT % 62 % (31-73); PLATELET COUNT 132 x10^3/uL (140-400); RED BLOOD COUNT 2.87 x10^6/uL (3.50-5.40); RED CELL DISTRIBUTION WIDTH 15.8 % (11.5-14.5); WHITE BLOOD COUNT 5.8 x10^3/uL (4.0-11.0)
[2020-10-16 06:31] LABS: ALBUMIN 1.8 g/dL (3.4-5.0); ALBUMIN/GLOBULIN RATIO 0.6 (1.0-1.7); CALCIUM 7.1 mg/dL (8.5-10.1); CREATININE 0.8 mg/dL (0.6-1.0); GFR 70.5; MAGNESIUM 1.8 mg/dL (1.8-2.4); PHOSPHORUS 1.1 mg/dL (2.6-4.7); POTASSIUM 3.5 mmol/L (3.5-5.1); TOTAL PROTEIN 4.9 g/dL (6.4-8.2)
[2020-10-16] MEDS ORDERED: SPIRONOLACTONE 25 MG TABLET PO SCH (09:00)
[2020-10-16] MEDS: LACTOBACILLUS RHAMNOSUS GG 1 CAPSULE. PO SCH ×2 (09:22→20:43)
[2020-10-16] MEDS ORDERED: ALBUMIN HUMAN 5% 250 ML IV ONE (10:00)
[2020-10-16] MEDS: IV NORMAL SALINE 1,000ML 1,000 ML IV SCH ×2 (10:39→21:42)
[2020-10-16 10:58] VITALS: BP 92/50
--- NOTE | 2020-10-16 11:23 | HP ---
ADMIT DATE: 10/15/2020 HISTORY OF PRESENT ILLNESS: A 70-year-old female came in through the Emergency Room via EMS for possible stroke; however, the patient was found on the floor, basically unclear how she fell there. However, the patient was noted that her sugar was registering below 30. She was given 100 mL of D10. Repeating sugar 98. Her glucose came back down to 57. The patient is very lethargic, sleepy, multiple electrolyte abnormalities when she was awake. She denies chest pain. She has severe dementia, Alzheimer type noted. She was admitted for multiplicity of medical problems, these were her anemia, her hypoglycemia, her elevated lactic acid, possible sepsis, very severe protein malnutrition. Phosphorus was low at 1.1. Calcium low at 7.1, probably pseudohypocalcemia secondary to the low albumin. May consider giving her some additional albumin. Troponins were negative. Coagulation did show an elevated D-dimer 1.45. Urine showed 11-20 whites and blood gases showed a pO2 of 51, so multiplicity of complex medical issues there. PAST MEDICAL HISTORY: Cataracts; hard of hearing; severe dementia, Alzheimer type; CHF; bradycardia; congestive heart failure; hypercholesterolemia; gastrointestinal disease; pancreatic cancer for which she does receive chemotherapy through a port; pancreatic surgery; gallbladder removed; genitourinary disorders; musculoskeletal disorders; arthritis; endocrine disorders; diabetes; cancer; influenza; and pneumococcal vaccinations; pancreatic cancer with mets as an underlying disease. FAMILY HISTORY: Positive for colon cancer, diabetes. ALLERGIES: No known allergies. MEDICATIONS: Reconciliation of medication was performed and they were adjusted accordingly including Zyrtec, Lipitor, spironolactone, aspirin, hydrocodone, lactobacillus, metformin and insulin. SOCIAL HISTORY: Denies smoking, alcohol or drug use. She is a full code. REVIEW OF SYSTEMS: The patient is very lethargic, not able to give much of a history, very confused. Just mutters a few words when you talk to her, kind of social talk, but other than that, not able to answer any real questions. PHYSICAL EXAMINATION: GENERAL: The patient on exam is an elderly white female looking older than stated age, very decrepit. VITAL SIGNS: Blood pressure 114/66, respiratory rate 20, pulse 50, temperature vacillates up to 99.3, 96% oxygen. HEENT: The patient's head was atraumatic, normocephalic. Eyes were PERRLA without jaundice. Poor dentition. EOMI. Sclerae clear. NECK: Supple, with degenerative changes. LUNGS: Diminished. Poor movement of air in the bases. CARDIOVASCULAR: Regular sinus rhythm, biju. ABDOMEN: Soft, nontender, no rebounding or guarding. Positive bowel sounds, no hepatosplenomegaly was noted. EXTREMITIES: No clubbing, cyanosis, nor edema. NEUROLOGIC: The patient was alert, but disoriented x 3. The patient is not able to follow basic commands. Has a lot of difficulty mentally. The patient had a chest x-ray, did show mild edema and infiltrates also could be in her chest x-ray. The patient had a CT chest, abdomen and pelvis; diffuse edema, ascites. Hypoalbuminemia, portal hypertension, distal stomach problems. No evidence of pulmonary edema. Cervical spine negative and of course head CT, no acute processes noted there. The patient will be admitted for further evaluation. We will go ahead. IMPRESSION: Therefore sepsis, pancreatic cancer with mets and on chemotherapy, immunosuppressed, anemia, hypophosphatemia, hypoglycemia, type 2 diabetes, severe protein malnutrition, hyperbilirubinemia, elevated liver enzymes, leukorrhea, acute on chronic respiratory distress with hypoxia. PLAN: The patient will be admitted. Replace electrolytes. Give her additional albumin. Continue to monitor her accordingly and make further adjustment as indicated on the multiplicity of medical issues this patient presents. DARREN WAITE MD DR: JOSEPHINE/macho JOB#: [id number] / [id number]
[2020-10-16] MEDS ORDERED: METO25TA4 PO (14:11)
[2020-10-16 15:21] VITALS: BP 104/60
--- NOTE | 2020-10-16 15:45 | NUR ---
NSG NOTE; VOIDING TRIAL FOR 10/17 DR WAITE ORDERED FLOMAX STARTED TODAY AND VOIDING TRIAL TO BEGIN TOMORROW AM, 10/17/20
[2020-10-16] MEDS: TAMSULOSIN 0.4 MG CAP.ER.24H. PO SCH (17:31)
[2020-10-16 19:06] VITALS: BP 106/62
[2020-10-16] MEDS: INSULIN GLARGINE SYRINGE. SQ SCH (20:44)
[2020-10-16] MEDS: ENOXAPARIN 40 MG/0.4 ML SYRINGE. SQ SCH (20:44)
[2020-10-17] MEDS: PIPERACILLIN/TAZOBACTAM 3.375 GM in IV NORMAL SALINE 50ML 50 ML IV SCH ×4 (05:38→23:02)
[2020-10-17 05:53] VITALS: BP 105/60
[2020-10-17 06:28] LABS: BASO % 0 % (0-3); EOS # 0.1 x10^3/uL (0.0-0.7); EOS % 1 % (0-3); HEMOGLOBIN 9.5 g/dL (12.0-15.5); LYMPH # 0.6 x10^3/uL (1.0-4.8); LYMPH % 11 % (24-48); MEAN CORPUSCULAR HEMOGLOBIN 34 pg (25-35); MEAN CORPUSCULAR HGB CONC 34 g/dL (31-37); MEAN CORPUSCULAR VOLUME 99 fL (79-100); MONO # 0.8 x10^3/uL (0.0-1.1); MONO % 13 % (0-9); NEUT # 4.5 x10^3uL (1.8-7.7); NEUT % 75 % (31-73); PLATELET COUNT 130 x10^3/uL (140-400); RED BLOOD COUNT 2.84 x10^6/uL (3.50-5.40); RED CELL DISTRIBUTION WIDTH 16.1 % (11.5-14.5)
[2020-10-17 06:44] LABS: ALBUMIN/GLOBULIN RATIO 0.7 (1.0-1.7); CALCIUM 7.1 mg/dL (8.5-10.1); CREATININE 0.8 mg/dL (0.6-1.0); GFR 70.5; TOTAL BILIRUBIN 2.3 mg/dL (0.2-1.0)
[2020-10-17 06:50] LABS: POTASSIUM 2.8 mmol/L (3.5-5.1)
[2020-10-17] MEDS ORDERED: DEXTROSE 50% 25 GM / 50ML DISP.SYRIN. IV ONE (06:53)
[2020-10-17] MEDS ORDERED: DEXTROSE 50% 25 GM / 50ML DISP.SYRIN. IV PRN (07:15)
[2020-10-17] MEDS ORDERED: IV DEXTROSE 10% 1,000 ML IV SCH (07:15)
[2020-10-17] MEDS ORDERED: ELECTROLYTE (NON-ICU) PROTOCOL. MC PRN (07:15)
[2020-10-17] MEDS: POTASSIUM CHLORIDE 10MEQ 100 ML IV SCH ×4 (07:32→15:52)
[2020-10-17] MEDS: TAMSULOSIN 0.4 MG CAP.ER.24H. PO SCH (07:56)
[2020-10-17] MEDS: LACTOBACILLUS RHAMNOSUS GG 1 CAPSULE. PO SCH ×2 (07:56→21:03)
[2020-10-17] MEDS: SPIRONOLACTONE 25 MG TABLET PO SCH (07:56)
[2020-10-17] MEDS: BUDESONIDE 3 MG CAP.ER.24H. PO SCH (10:10)
[2020-10-17 10:31] VITALS: BP 108/67
--- NOTE | 2020-10-17 12:36 | PN ---
DATE: SUBJECTIVE: A 70-year-old female in with multiple medical problems. She has a history of pancreatic cancer and has been having problems with low sodium, which would be unusual and she had another low sodium about this morning and we will put her on some D10. Not unusual when these tumors will consume the amount of sugar that is going into the patient's system. Otherwise, the patient is kind of mum. She will not answer questions, although she is alert and looks around, but she fails to answer any of my questions that I have tried to ask her at all. OBJECTIVE: VITAL SIGNS: Otherwise, her blood pressure is 108/87, respiratory rate 14, pulse 76, afebrile. GENERAL: The patient is alert and oriented. LUNGS: Diminished, but basically clear. CARDIOVASCULAR: Regular sinus rhythm. ABDOMEN: Soft, nontender. NEUROLOGIC: The patient is alert, but not talking. LABORATORY DATA: Hemoglobin and hematocrit 9 and 28. Sodium is still low at 2.8. We will put her on electrolyte protocols. Blood sugar went down to 20. As noted, she is on D10. Albumin still low at 2, came up from much lower number. IMPRESSION: Pancreatic cancer with severe hypoglycemia secondary to the tumor, hypokalemia, severe protein malnutrition. PLAN: Continue to monitor her accordingly and make further evaluation, and we will try to get further guidance on what the family would like to have done with the patient as far as further care when she leaves the hospital. DARREN WAITE MD DR: JOSEPHINE/macho JOB#: [id number] / [id number]
[2020-10-17 14:38] VITALS: BP 125/65
[2020-10-17] MEDS ORDERED: IV DEXTROSE 5% 1,000 ML IV SCH (17:15)
[2020-10-17] MEDS: INSULIN LISPRO 300 UNITS/3 ML VIAL. SQ SCH (17:30)
[2020-10-17 20:16] VITALS: BP 126/70
[2020-10-17] MEDS: ENOXAPARIN 40 MG/0.4 ML SYRINGE. SQ SCH (21:03)
[2020-10-18] VITALS: BP 106/61
[2020-10-18] MEDS: PIPERACILLIN/TAZOBACTAM 3.375 GM in IV NORMAL SALINE 50ML 50 ML IV SCH ×4 (05:02→23:39)
[2020-10-18 05:27] VITALS: BP 100/55
[2020-10-18 06:26] LABS: CALCIUM 7.3 mg/dL (8.5-10.1); CREATININE 0.9 mg/dL (0.6-1.0); GFR 61.5; POTASSIUM 3.1 mmol/L (3.5-5.1)
[2020-10-18] MEDS ORDERED: POTASSIUM CHLORIDE 20 MEQ TABLET.ER. PO ONE (07:30)
[2020-10-18] MEDS: INSULIN LISPRO 300 UNITS/3 ML VIAL. SQ SCH (07:45)
[2020-10-18] MEDS: LACTOBACILLUS RHAMNOSUS GG 1 CAPSULE. PO SCH ×2 (08:22→20:52)
[2020-10-18] MEDS: SPIRONOLACTONE 25 MG TABLET PO SCH (08:22)
[2020-10-18] MEDS: TAMSULOSIN 0.4 MG CAP.ER.24H. PO SCH (08:22)
[2020-10-18] MEDS: BUDESONIDE 3 MG CAP.ER.24H. PO SCH (08:23)
[2020-10-18] MEDS ORDERED: ELECTROLYTE (NON-ICU) PROTOCOL. MC PRN (10:30)
[2020-10-18 11:00] VITALS: BP 100/61
--- NOTE | 2020-10-18 13:21 | PN ---
DATE: SUBJECTIVE: A 70-year-old female came in with multiple medical problems. The patient was severely hypoglycemic, had to be placed on D10. The patient otherwise this morning seems to be much more alert than she was yesterday. Her sugars have vacillated remarkably anywhere from 209, down to 70 and then back up to 228. We have taken her off the D10 and D5 to see how she does on a sliding scale, potassium needs to be corrected. Otherwise, she continues on IV antibiotic therapy. OBJECTIVE: VITAL SIGNS: Blood pressure 100/61, respiratory rate 16, pulse 60, afebrile. GENERAL: The patient is more alert this morning. Answers questions more appropriately, although she obviously is extremely hard of hearing. LUNGS: Otherwise, lungs are diminished, but basically clear. CARDIOVASCULAR: Stable. ABDOMEN: Soft, diffuse tenderness, no rebound or guarding. Positive bowel sounds. EXTREMITIES: No clubbing, cyanosis or edema. NEUROLOGIC: Baseline for this pleasant lady. We will continue on the IV antibiotic therapy. IMPRESSION: Sepsis, pancreatic cancer with possible continued chemotherapy, immunosuppressed anemia, hypophosphatemia, hypokalemia, hyperglycemia, type 2 diabetes, severe protein malnutrition, hyperbilirubinemia, portal hypertension and elevated liver enzymes, leukorrhea, acute on chronic respiratory distress with hypoxia. All those situations seem to be improving with therapy provided. DARREN WAITE MD DR: JOSEPHINE/macho JOB#: [id number] / [id number]
[2020-10-18 15:00] VITALS: BP 116/59
[2020-10-18 19:30] VITALS: BP 121/64
[2020-10-18] MEDS: ENOXAPARIN 40 MG/0.4 ML SYRINGE. SQ SCH (20:53)
[2020-10-18 22:35] VITALS: BP 120/67
[2020-10-19] MEDS: PIPERACILLIN/TAZOBACTAM 3.375 GM in IV NORMAL SALINE 50ML 50 ML IV SCH (05:13)
[2020-10-19 05:20] VITALS: BP 114/64
--- NOTE | 2020-10-19 05:30 | NUR ---
Pt sitting up in chair at change of shift but requesting to go to the bathroom then get into bed because she is "cold and calling it a night." Pt assist up to bathroom then into bed with walker, pt stated that she felt good on her feet. Pt is A&Ox4, very pleasant and cooperative with cares and assessment. Pt ate HS snack and blood glucose was 261 at bedtime. Pt's HR did dip down into upper 30's to lower 40's when sleeping soundly. Pt slept good during night, only getting up twice during night to bathroom. 0300 blood sugar check was 234.
[2020-10-19] MEDS: TAMSULOSIN 0.4 MG CAP.ER.24H. PO SCH (09:31)
[2020-10-19] MEDS: LACTOBACILLUS RHAMNOSUS GG 1 CAPSULE. PO SCH ×2 (09:31→20:49)
[2020-10-19] MEDS: BUDESONIDE 3 MG CAP.ER.24H. PO SCH (09:31)
[2020-10-19] MEDS: SPIRONOLACTONE 25 MG TABLET PO SCH (09:31)
[2020-10-19] MEDS: CEFDINIR 300 MG CAPSULE PO SCH ×2 (09:35→20:49)
[2020-10-19 10:42] VITALS: BP 110/53
[2020-10-19 15:23] VITALS: BP 125/68
[2020-10-19 18:32] VITALS: BP 92/54
[2020-10-19] MEDS ORDERED: DEXTROSE 50% 25 GM / 50ML DISP.SYRIN. IV PRN (19:00)
[2020-10-19] MEDS: INSULIN LISPRO 300 UNITS/3 ML VIAL. SQ SCH (20:41)
[2020-10-19] MEDS: ENOXAPARIN 40 MG/0.4 ML SYRINGE. SQ SCH (20:49)
[2020-10-19] MEDS ORDERED: INSULIN GLARGINE SYRINGE. SQ ONE (21:00)
[2020-10-19] MEDS ORDERED: INSULIN LISPRO 300 UNITS/3 ML VIAL. SQ ONE (21:00)
[2020-10-19] MEDS ORDERED: INSULIN LISPRO 300 UNITS/3 ML VIAL. SQ SCH (21:00)
--- NOTE | 2020-10-20 01:52 | PN ---
DATE: SUBJECTIVE: A 70-year-old female came in with a change in mental status as well as extremely low blood sugar in the 20s. The patient otherwise was taken off the D10 and blood sugar has risen on its own into the 200s. The patient was restarted on her Lantus and sliding scale. OBJECTIVE: GENERAL: Otherwise, the patient seems to be a little bit more alert. VITAL SIGNS: Blood pressure 120/70, respiratory rate 16, pulse 70, afebrile. The patient is room air at 98%. The patient is alert, hard of hearing. LUNGS: Otherwise, lungs clear. CARDIOVASCULAR: ____. ABDOMEN: Soft, nontender. EXTREMITIES: No clubbing, cyanosis or edema. NEUROLOGIC: Baseline for her mild dementia, but other than that seems to be doing fairly well. IMPRESSION: Pancreatic cancer; severe hypoglycemia, corrected; hypokalemia; severe protein malnutrition. PLAN: Continue to monitor. Get her blood sugar under control and hopefully ready for discharge home in the a.m. DARREN WAITE MD DR: JOSEPHINE/macho JOB#: [id number] / [id number]
--- NOTE | 2020-10-20 05:56 | NUR ---
Shift Note: Pt a/o x4, VSS, no c/o pain or n/v throughout the night, pt ambulating w/walker (steady gait observed), pt anticipating discharge today.
[2020-10-20 06:00] VITALS: BP 102/46
[2020-10-20 07:40] LABS: BASO % 0 % (0-3); EOS # 0.1 x10^3/uL (0.0-0.7); EOS % 3 % (0-3); HEMATOCRIT 28.6 % (36.0-47.0); HEMOGLOBIN 9.7 g/dL (12.0-15.5); LYMPH # 1.2 x10^3/uL (1.0-4.8); LYMPH % 19 % (24-48); MEAN CORPUSCULAR HEMOGLOBIN 33 pg (25-35); MEAN CORPUSCULAR HGB CONC 34 g/dL (31-37); MEAN CORPUSCULAR VOLUME 99 fL (79-100); MONO # 0.7 x10^3/uL (0.0-1.1); MONO % 11 % (0-9); NEUT % 67 % (31-73); PLATELET COUNT 141 x10^3/uL (140-400); RED BLOOD COUNT 2.89 x10^6/uL (3.50-5.40); RED CELL DISTRIBUTION WIDTH 16.7 % (11.5-14.5); WHITE BLOOD COUNT 6.1 x10^3/uL (4.0-11.0)
[2020-10-20] MEDS: INSULIN LISPRO 300 UNITS/3 ML VIAL. SQ SCH ×2 (08:00→12:00)
[2020-10-20] MEDS ORDERED: SPIR25TA5 PO (10:11)
[2020-10-20] MEDS ORDERED: INSU100I11 SQ (10:11)
[2020-10-20] MEDS ORDERED: CEFD300C PO (10:11)
[2020-10-20] MEDS ORDERED: BUDE3CAP2 PO (10:11)
[2020-10-20] MEDS ORDERED: TAMS0.4C97 PO (10:11)
--- NOTE | 2020-10-20 10:13 | DISCH ---
HOME HEALTH DISCHARGE/MEDS DISCHARGE INFORMATION: Discharge Date: Oct 20, 2020 Final Diagnosis: Problems Medical Problems: (1) Altered mental state Status: Acute (2) Dehydration Status: Acute (3) Hypocalcemia Status: Acute (4) Hypoglycemia Status: Acute (5) Hypomagnesemia Status: Acute (6) Hypophosphatemia Status: Acute (7) Pancolitis Status: Acute (8) Sepsis, unspecified organism Status: Acute (9) UTI (urinary tract infection) Status: Acute Condition on Discharge: Stable CODE STATUS: Code Status: Full HOME HEALTH: Face to Face: I certify this patient is under my care and that I, or a nurse practitioner or physician's assistant professor working with me, had a face to face encounter that meets the physician face to face encounter requirements with this patient on 10/20/20. Medical Condition(s): CHF, Dementia, DM, HTN, Other (Lab draw: CBC and Chem 7 on FridayOct 23) Senior Living For: Assess Cardiopulm Status, Assess & Educate Safety, Assess/Skilled Observatio, Diabetic Care, Medication Management Physical Therapy For: Evalulation/Treatment Homebound Status Met By: Poor coordination w/ amb. POST DISCHARGE ORDERS: Activity Instructions for Disc: Activity as tolerated Weight Bearing Status after Di: No restrictions DIET AFTER DISCHARGE: ADA CHECKS AFTER DISCHARGE: Checks after discharge: Check blood sugar, ac/hs CERTIFICATION STATEMENT: Certification Statement: Based on the above finding, I certify that this patient is confined to the home and needs intermittent retirement care, physical therapy and/or speech therapy, or continues to need occupational therapy.~ This patient is under my care, and I have initiated the establishment of the plan of care.~ This patient will be followed by myself or a community physician who will periodically review the plan of care. DISCHARGE MEDICATIONS: Home Meds Reported Medications Metoprolol Tartrate (METOPROLOL TARTRATE) 25 Mg Tablet, .5 TAB PO BID for HIGH BLOOD PRESSURE 10/16/20 Spironolactone (SPIRONOLACTONE) 50 Mg Tablet, 50 MG PO DAILY for SWELLING LAST DOSE GIVEN: DATE: TODAY TIME: AM NEXT DOSE DUE: DATE: TOMORROW TIME: AM 06/09/20 Insulin Glargine,Hum.rec.anlog (Basaglar Kwikpen U-100) 100 Unit/1 Ml Ins uln.pen, 30 UNITS SQ HS for BLOOD SUGAR CONTROL LAST DOSE GIVEN: DATE: YESTERDAY TIME: BEDTIME NEXT DOSE DUE: DATE: TODAY TIME: BEDTIME 06/09/20 Hydrocodone Bit/Acetaminophen (HYDROCODONE-APAP 5-325 ) 1 Each Tablet, 1-2 TAB PO PRN Q4-6HRS PRN for PAIN TAKE NEEDED. 10/03/17 Lactobacillus Acidophilus (PROBIOTIC) 1 Each Capsule, 1 EACH PO DAILY for PROBIOTIC LAST DOSE GIVEN: DATE: TODAY TIME: AM NEXT DOSE DUE: DATE: TOMORROW TIME: AM 10/03/17 Metformin Hcl (METFORMIN HCL) 500 Mg Tablet, 1000 MG PO BIDWMEALS for ANTI- DIABETIC TAKE TODAY BEFORE SUPPER MEAL. 10/03/17 Cetirizine Hcl (CETIRIZINE HCL) 10 Mg Tablet, 10 MG PO DAILY for ALLERGIES LAST DOSE GIVEN: DATE: TODAY TIME: AM NEXT DOSE DUE: DATE: TOMORROW TIME: AM 10/03/17 Atorvastatin Calcium (ATORVASTATIN CALCIUM) 20 Mg Tablet, 20 MG PO QHS for FOR CHOLESTEROL LAST DOSE GIVEN: DATE: YESTERDAY TIME: BEDTIME NEXT DOSE DUE: DATE: TODAY TIME: BEDTIME 10/03/17 Aspirin (ASPIRIN) 81 Mg Tab.chew, 81 MG PO DAILY for BLOOD THINNER LAST DOSE GIVEN: DATE: TODAY TIME: AM NEXT DOSE DUE: DATE: TOMORROW TIME: AM 10/03/17 DARREN WAITE MD Oct 20, 2020 10:13
[2020-10-20 10:34] VITALS: BP 108/61
--- NOTE | 2020-10-20 12:33 | DISCH ---
DISCHARGE ORDERS DISCHARGE DATE: Oct 20, 2020 FINAL DIAGNOSIS Colitis, hyperglycemia,hypoglycemia, weakness CONDITION AT DISCHARGE: Stable Code Status: Full SNF STAY <30 DAYS: Yes HOSPICE: No HOSPICE EVALUATE & TREAT: No ADMIT TO LTAC: No POST DISCHARGE ORDERS: ACTIVITY ORDERS: Activity as tolerated WEIGHT BEARING STATUS: No restrictions DIET AFTER DISCHARGE: ADA WOUND/INCISION CARE: No wound care needed CHECKS AFTER DISCHARGE: CHECKS AFTER DISCHARGE: Check blood sugar, ac/hs FOLLOW-UP: FFOLLOW-UP WITH: Tc in 1-2 weeks [id number] TREATMENT/EQUIPMENT ORDERS: ADAPTIVE EQUIPMENT NEEDED: None RESPIRATORY EQUIPMENT: Oxygen DISCHARGE MEDICATIONS: Home Meds Active Scripts Spironolactone (SPIRONOLACTONE) 25 Mg Tablet, 1 TAB PO DAILY for swelling, #90 TAB 1 Refill Prov:DARREN WAITE MD 10/20/20 Insulin Lispro (HUMALOG) 100 Unit/1 Ml Insuln.pen, 0 UNITS SQ TIDWMEALHC for high blood sugar, #5 EACH Prov:DARREN WAITE MD 10/20/20 Tamsulosin Hcl (FLOMAX) 0.4 Mg Cap.er.24h, 0.4 MG PO DAILY for urine flow for 30 Days, #30 CAP.SR 5 Refills Prov:DARREN WAITE MD 10/20/20 Cefdinir (CEFDINIR) 300 Mg Capsule, 300 MG PO BID for infection for 5 Days, #10 CAP Prov:DARREN WAITE MD 10/20/20 Budesonide (BUDESONIDE EC) 3 Mg Capdr...er, 3 MG PO DAILY for stomach for 30 Days, #30 CAP.SR 2 Refills Prov:DARREN WAITE MD 10/20/20 Reported Medications Metoprolol Tartrate (METOPROLOL TARTRATE) 25 Mg Tablet, .5 TAB PO BID for HIGH BLOOD PRESSURE 10/16/20 Hydrocodone Bit/Acetaminophen (HYDROCODONE-APAP 5-325 ) 1 Each Tablet, 1-2 TAB PO PRN Q4-6HRS PRN for PAIN TAKE NEEDED. 10/03/17 Lactobacillus Acidophilus (PROBIOTIC) 1 Each Capsule, 1 EACH PO DAILY for PROBIOTIC LAST DOSE GIVEN: DATE: TODAY TIME: AM NEXT DOSE DUE: DATE: TOMORROW TIME: AM 10/03/17 Metformin Hcl (METFORMIN HCL) 500 Mg Tablet, 1000 MG PO BIDWMEALS for ANTI- DIABETIC TAKE TODAY BEFORE SUPPER MEAL. 10/03/17 Cetirizine Hcl (CETIRIZINE HCL) 10 Mg Tablet, 10 MG PO DAILY for ALLERGIES LAST DOSE GIVEN: DATE: TODAY TIME: AM NEXT DOSE DUE: DATE: TOMORROW TIME: AM 10/03/17 Atorvastatin Calcium (ATORVASTATIN CALCIUM) 20 Mg Tablet, 20 MG PO QHS for FOR CHOLESTEROL LAST DOSE GIVEN: DATE: YESTERDAY TIME: BEDTIME NEXT DOSE DUE: DATE: TODAY TIME: BEDTIME 10/03/17 Aspirin (ASPIRIN) 81 Mg Tab.chew, 81 MG PO DAILY for BLOOD THINNER LAST DOSE GIVEN: DATE: TODAY TIME: AM NEXT DOSE DUE: DATE: TOMORROW TIME: AM 10/03/17 Discontinued Reported Medications Spironolactone (SPIRONOLACTONE) 50 Mg Tablet, 50 MG PO DAILY for SWELLING LAST DOSE GIVEN: DATE: TODAY TIME: AM NEXT DOSE DUE: DATE: TOMORROW TIME: AM 06/09/20 Insulin Glargine,Hum.rec.anlog (Ania Singleton U-100) 100 Unit/1 Ml Insuln.pen, 30 UNITS SQ HS for BLOOD SUGAR CONTROL LAST DOSE GIVEN: DATE: YESTERDAY TIME: BEDTIME NEXT DOSE DUE: DATE: TODAY TIME: BEDTIME 06/09/20 DARREN WAITE MD Oct 20, 2020 12:33
[2020-10-20] MEDS: BUDESONIDE 3 MG CAP.ER.24H. PO SCH (12:37)
[2020-10-20] MEDS: LACTOBACILLUS RHAMNOSUS GG 1 CAPSULE. PO SCH (12:37)
[2020-10-20] MEDS: CEFDINIR 300 MG CAPSULE PO SCH (12:38)
[2020-10-20] MEDS: SPIRONOLACTONE 25 MG TABLET PO SCH (12:38)
[2020-10-20] MEDS: TAMSULOSIN 0.4 MG CAP.ER.24H. PO SCH (12:38)
[2020-10-20] MEDS ORDERED: POTASSIUM CHLORIDE 20 MEQ TABLET.ER. PO ONE (12:45)
[2020-10-20 14:40] VITALS: BP 126/69
--- NOTE | 2020-10-20 15:00 | NUR ---
Pt discharged via wheelchair to [facility] bus. Pt agreeable to go, alert and oreintedx3, forgetful, needs reenforcement. Vital signs stable. Report given to SAPPHIRE Brooks at [facility]. All medications and orders reviewed. Son notified of discharge.
== END 2020-10-20 15:00 | DRG 435 ==
LOC: ER 09:50 → 1 SOUTH 13:35
PROVIDERS: ADMIT Family Medicine; ATTEND Family Medicine
DX: C25.9 Malignant neoplasm of pancreas, unspecified (principal); E43 Unspecified severe protein-calorie malnutrition; D84.9 Immunodeficiency, unspecified; K76.6 Portal hypertension; N39.0 Urinary tract infection, site not specified; C79.9 Secondary malignant neoplasm of unspecified site; D64.9 Anemia, unspecified; E11.649 Type 2 diabetes mellitus with hypoglycemia without coma; E78.00 Pure hypercholesterolemia, unspecified; E78.5 Hyperlipidemia, unspecified; E83.39 Other disorders of phosphorus metabolism; E83.42 Hypomagnesemia; E83.51 Hypocalcemia; E86.0 Dehydration; E87.6 Hypokalemia; F02.80 Dementia in other diseases classified elsewhere, unspecified severity, without behavioral disturbance, psychotic disturbance, mood disturbance, and anxiety; G30.9 Alzheimer's disease, unspecified; I11.0 Hypertensive heart disease with heart failure; I25.10 Atherosclerotic heart disease of native coronary artery without angina pectoris; I50.9 Heart failure, unspecified; F41.9 Anxiety disorder, unspecified; M19.90 Unspecified osteoarthritis, unspecified site; E11.65 Type 2 diabetes mellitus with hyperglycemia; K76.0 Fatty (change of) liver, not elsewhere classified; Z79.4 Long term (current) use of insulin; Z80.0 Family history of malignant neoplasm of digestive organs; Z82.49 Family history of ischemic heart disease and other diseases of the circulatory system; Z83.3 Family history of diabetes mellitus; Z85.038 Personal history of other malignant neoplasm of large intestine; Z86.73 Personal history of transient ischemic attack (TIA), and cerebral infarction without residual deficits; Z87.891 Personal history of nicotine dependence; Z90.411 Acquired partial absence of pancreas; Z91.19 Patient's noncompliance with other medical treatment and regimen; Z90.49 Acquired absence of other specified parts of digestive tract; Z68.23 Body mass index [BMI] 23.0-23.9, adult
CPT/HCPCS: 36415; 70450; 71045; 71275; 72125; 74177; 80048; 80053; 80307; 81001; 82140; 82550; 82803; 82947; 83540; 83550; 83605; 83735; 83880; 84100; 84443; 84484; 84550; 85025; 85379; 85610; 85730; 87040; 87077; 87086; 87186; 93005; 96361; 96374; G0480; J0610; J1650; J1815; J2543; J3475; J3480; J3490; J7042; P9041; Q9967; 97110; 97116; 97530; 97535; 99285-25; J7030

== ENCOUNTER 2020-10-27 01:28 | Inpatient (IN) | payer MEDICARE ==
[2020-10-27] VITALS (8 sets, daily range): BP systolic 102–119; BP diastolic 43–68
[~2020-10-27] VITALS: Ht 160 cm; Wt 58.9 kg
[~2020-10-27 01:28] MED LIST changes: +BUDE3CAP2 PO; +CEFD300C PO; +INSU100I11 SQ; +SPIR25TA5 PO; +TAMS0.4C97 PO
--- NOTE | 2020-10-27 01:34 | PHYS DOC ---
Past History Past Medical History: Anxiety, CAD, Cancer, CVA, Diabetes, Heart Disease, Hypertension, Hypotension, Stroke, Testicular Torsion, UTI Past Surgical History: Cholecystectomy, Other Additional Past Surgical Histo: PANCREAS REMOVED DUE TO CANCER Alcohol Use: None Drug Use: None General Adult HPI: HPI: Patient is a 70 year old female patient from [facility] who presents with above hx of found down with low glucose readings. Patient residen t [facility] since 10/20/20 . The pt.had unkown down time. Patient has reportedly a poor intake of food today but did receive her regular insulin dosage. Patient does have a past medical history of diabetes, malnutrition, urinary tract infections, TIAs, CVAs, pneumonia, hyperlipidemia, Alzheimer's disease, dementia, anxiety, heart failure, anemia, malignant neoplasms of pancreas, hypoglycemia, bradycardia, hearing deficits,. Patient's pancreatic cancer was treated with surgery and chemo. Patient did have a Whipple surgery done on 12/09/2016. Pt. did get Insulin today, but had reportedly poor intake. . Pt. did get glucagon in route by paramedics. Glucose check repeat still low at 40. On arrival patient's glucose was 40 and after 50 g glucose glucose came up to 184. Patient's level of awareness mental status did gradually improve in the emergency department. Pt. did have some symptomatic bradycardia which resolved with 1 mg of Atropine. Pt. follows with Dr Jones in the nursing. Has follow with Dr. Waite out pt. in the past. Patient also has been followed at [facility]. Patient reportedly up-to-date with flu and Pneumovax vaccinations Review of Systems: Review of Systems: Current review of symptoms limited due to patient's mental status and no information from the [facility] other than history of hypoglycemia Family History: Family History: Not currently available. Does have chart history of family having colon cancer, heart failure, and diabetes Current Medications: Current Meds: See nursing and [facility] record for current meds Allergies: Allergies: Allergies Coded Allergies Type Severity Reaction Last Updated Verified No Known Drug Allergies 06/09/20 No Physical Exam: PE: Constitutional: , no acute distress, chronically ill in appearance. Overall appearance appears to be cachectic HENT: Normocephalic, atraumatic, bilateral external ears normal, oropharynx moist, no oral exudates, nose normal. [] Eyes: PERRLA, EOMI, conjunctiva normal, no discharge. [] Neck: , no tenderness, supple, no stridor. [] Cardiovascular: Sinus bradycardia on monitor. Bradycardic heart rate regular rhythm, no murmur, PMI to the left Lungs & Thorax: Bilateral breath sounds equal apex with scattered wheezes on auscultation. Bibasilar crackles. Abdomen: Bowel sounds decreased, old surgical scars,, soft, no tenderness, no masses, no pulsatile masses. [] Skin: Warm, dry, no erythema, no rash. Poor turgor. Back: No tenderness, no CVA tenderness. Kyphosis. Extremities: No tenderness, no cyanosis, no clubbing, ROM intact, ankle edema. Arthritic changes. Neurologic: Minimal response to noxious stimuli, does not cross react with noxious stimuli., (Patient's mental status is gradually improved with supplementation of glucose. IV) Psychologic: Affect flat, judgement obviously impaired,Anxious, EKG: EKG: EKG shows a sinus rhythm at 49 bpm. Left axis changes, no findings of acute STEMI or contralateral changes. Monitor occasional had episodes of bradycardia into the 20s [] Radiology/Procedures: Radiology/Procedures: [[place] [id number] IMAGING REPORT Signed PATIENT: ABRIL NAGY ACCOUNT: [id number] : 1950 LOCATION: ER AGE: 70 SEX: F EXAM STATUS: PRE ER ORD. PHYSICIAN: MERRY WONG MD REASON: Bradycardia, lethargic, short of air PROCEDURE: PORTABLE CHEST 1V AP chest x-ray HISTORY: Bradycardia, lethargy, shortness of breath. COMPARISON: CT chest October 15, 2020. FINDINGS: Left subclavian portacatheter tip proximal right atrium. Mild car diomegaly stable. No pneumothorax. No pleural effusions. There may be mild pulmonary vascular congestion with prominence of the vessels although similar to prior x-rays. No pneumothorax, pulmonary opacities or pleural effusions. Chronic nonunion right clavicle fracture.. IMPRESSION: Mild cardiomegaly and probable mild pulmonary vascular congestion, stable to prior x-rays. No pulmonary edema or pleural effusions evident. Electronically signed by: Ian Harmon MD (10/27/2020 2:51 AM) [facility] DICTATED AND SIGNED BY: IAN HARMON MD DATE: 10/27/20 0246 CC: DARREN WAITE MD; MERRY WONG MD ~MTH0 0 ][place] [address] IMAGING REPORT Signed PATIENT: ABRIL NAGY ACCOUNT: [id number] : 1950 LOCATION: ER AGE: 70 SEX: F EXAM STATUS: PRE ER ORD. PHYSICIAN: MERRY WONG MD REASON: Syncope, lethargic, change in mental status PROCEDURE: CT HEAD WO CONTRAST CT head without contrast PQRS statement: CT scans at this facility use dose reduction including either automated exposure control, iterative reconstructions, and /or weight based radiation dosing via mA and kV modification when appropriate to reduce radiation dose to as low as reasonably achievable. HISTORY: Syncope, lethargy, altered mental status. COMPARISON: CT head October 15, 2020. FINDINGS: No intracranial hemorrhage, mass, hydrocephalus, extra-axial fluid collections or infarction. Orbits, mastoids and bones are unremarkable. IMPRESSION: No acute intracranial CT abnormality. Electronically signed by: Ian Harmon MD (10/27/2020 2:56 AM) [facility] DICTATED AND SIGNED BY: IAN HARMON MD DATE: 10/27/20 025 CC: DARREN WAITE MD; MERRY WONG MD ~MTH0 0 Heart Score: HEART Score for Chest Pain: HEART Score for Chest Pain Response (Comments) Value History Moderately Suspicious 1 ECG Nonspecific Repolarizatio 1 Age > 65 2 Risk Factors 1 or 2 Risk Factors 1 Troponin < Normal Limit 0 Total 5 Risk Factors: Risk Factors: DM, Current or recent (<one month) smoker, HTN, HLP, family history of CAD, obesity. Risk Scores: Score 0 - 3: 2.5% MACE over next 6 weeks - Discharge Home Score 4 - 6: 20.3% MACE over next 6 weeks - Admit for Clinical Observation Score 7 - 10: 72.7% MACE over next 6 weeks - Early Invasive Strategies Course & Med Decision Making: Course & Med Decision Making Pertinent Labs and Imaging studies reviewed. (See chart for details) Discussed presentation, testing and treatment plan with Dr. Waite. Will be admitted for serial glucose checks. Consult to cardiology. Critical care 45 minutes Impression: 1. Mental status change/altered consciousness 2. Hyperglycemia symptomatic 3. History of diabetes 4. History of hypomagnesium 1.6 5. Anemia-hemoglobin 10.3 6. History of bradycardia 7. Dementia/Alzheimer's disease 8. Malnutrition critical albumin 2.2 9. Hypomagnesia 1.6 10. Elevated D-dimer 2.12 [] Dragon Disclaimer: Dragon Disclaimer: This electronic medical record was generated, in whole or in part, using a voice recognition dictation system. Departure Departure: Referrals: DARREN WAITE MD (PCP) [place] Disclaimer This chart was dictated in whole or in part using Voice Recognition software in a busy, high-work load, and often noisy Emergency Department environment. It may contain unintended and wholly unrecognized errors or omissions. MERRY WONG MD Oct 27, 2020 01:34
[2020-10-27] MEDS ORDERED: DEXTROSE 50% 25 GM / 50ML DISP.SYRIN. IV ONE ×2 (02:00→02:15)
[2020-10-27] MEDS ORDERED: IV RINGERS SOLUTION,LACTATED 1,000 ML IV SCH (02:00)
[2020-10-27 02:08] LABS: BASO % 0 % (0-3); EOS # 0.2 x10^3/uL (0.0-0.7); EOS % 2 % (0-3); HEMATOCRIT 30.8 % (36.0-47.0); HEMOGLOBIN 10.3 g/dL (12.0-15.5); LYMPH # 1.2 x10^3/uL (1.0-4.8); LYMPH % 15 % (24-48); MEAN CORPUSCULAR HEMOGLOBIN 34 pg (25-35); MEAN CORPUSCULAR HGB CONC 33 g/dL (31-37); MEAN CORPUSCULAR VOLUME 102 fL (79-100); MONO # 0.6 x10^3/uL (0.0-1.1); MONO % 7 % (0-9); NEUT # 6.2 x10^3uL (1.8-7.7); NEUT % 75 % (31-73); PLATELET COUNT 174 x10^3/uL (140-400); RED BLOOD COUNT 3.02 x10^6/uL (3.50-5.40); RED CELL DISTRIBUTION WIDTH 17.4 % (11.5-14.5); WHITE BLOOD COUNT 8.3 x10^3/uL (4.0-11.0)
--- NOTE | 2020-10-27 02:31 | EKG ---
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
[2020-10-27 02:36] LABS: BACTERIA,URINE 0 /HPF (0-FEW); BILIRUBIN,URINE NEG (NEG); CLARITY,URINE CLEAR; COLOR,URINE YELLOW; GLUCOSE,URINE NEG (NEG); NITRITE,URINE NEG (NEG); RBC,URINE OCC /HPF (0-2); SQUAMOUS EPITHELIAL CELL,UR OCC /LPF; UROBILINOGEN,URINE 0.2 mg/dL (0.2 mg/dL); WBC,URINE OCC /HPF (0-4)
[2020-10-27 02:42] LABS: ALBUMIN 2.2 g/dL (3.4-5.0); CALCIUM 7.9 mg/dL (8.5-10.1); CREATININE 0.8 mg/dL (0.6-1.0); DIRECT BILIRUBIN 0.8 mg/dL (0.0-0.2); GFR 70.5; MAGNESIUM 1.6 mg/dL (1.8-2.4); POTASSIUM 3.4 mmol/L (3.5-5.1); TOTAL BILIRUBIN 1.4 mg/dL (0.2-1.0); TOTAL PROTEIN 5.7 g/dL (6.4-8.2)
[2020-10-27 02:43] LABS: BARBITURATES NEG (NEG); BENZODIAZEPINES NEG (NEG); CANNABINOIDS NEG (NEG); COCAINE NEG (NEG); METHADONE NEG (NEG); OPIATES NEG (NEG); PHENCYCLIDINE NEG (NEG)
[2020-10-27 02:45] LABS: AMPHETAMINE/METHAMPHETAMINE NEG (NEG)
--- NOTE | 2020-10-27 02:54 | RAD ---
AP chest x-ray HISTORY: Bradycardia, lethargy, shortness of breath. COMPARISON: CT chest October 15, 2020. FINDINGS: Left subclavian portacatheter tip proximal right atrium. Mild cardiomegaly stable. No pneum othorax. No pleural effusions. There may be mild pulmonary vascular congestion with prominence of the vessels although similar to prior x-rays. No pneumothorax, pulmonary opacities or pleural effusions. Chronic nonunion right clavicle fracture.. IMPRESSION: Mild cardiomegaly and probable mild pulmonary vascular congestion, stable to prior x-rays . No pulmonary edema or pleural effusions evident. Electronically signed by: Dharmesh Harmon MD (10/27/2020 2:51 AM) [facility]
--- NOTE | 2020-10-27 02:58 | RAD ---
CT head without contrast PQRS statement: CT scans at this facility use dose reduction including either automated exposure cont rol, iterative reconstructions, and /or weight based radiation dosing via mA and kV modification when appropriate to reduce radiation dose to as low as reasonably achievable. HISTORY: Syncope, lethargy, altered mental status. COMPARISON: CT head October 15, 2020. FINDINGS: No intracranial hemorrhage, mass, hydrocephalus, extra-axial fluid collections or infarctio n. Orbits, mastoids and bones are unremarkable. IMPRESSION: No acute intracranial CT abnormality. Electronically signed by: Dharmesh Harmon MD (10/27/2020 2:56 AM) [facility]
[2020-10-27] MEDS ORDERED: ATROPINE 1 MG/10 ML DISP.SYRINGE. IV ONE (04:00)
[2020-10-27] MEDS ORDERED: ATROPINE SULFATE 1 MG VIAL ONE (04:04)
[2020-10-27] MEDS ORDERED: ATROPINE 0.5 MG/5 ML DISP.SYRIN. ONE (04:04)
[2020-10-27] MEDS ORDERED: MAGNESIUM SULFATE 2GM 50 ML IV ONE (04:15)
[2020-10-27] MEDS ORDERED: IV DEXTROSE 5%-LACT RINGERS 1,000 ML IV ONE (04:15)
[2020-10-27] MEDS ORDERED: ONDANSETRON PF 4 MG/2 ML VIAL. IVP PRN (04:15)
[2020-10-27] MEDS ORDERED: ACETAMINOPHEN 325 MG TABLET PO PRN (04:15)
[2020-10-27] MEDS: IPRATRPIUM/ALBUTEROL 0.5/2.5MG 3 ML NEBU. NEB SCH ×4 (05:19→20:00)
--- NOTE | 2020-10-27 06:00 | NUR ---
Pt was admitted to ICU bed 3 from ER via [facility], accompanied by EMS and nursing staff. Pt transferred from [facility] to bed x4 assist. Admission assessment completed. Pt A&Ox2, lethargic, cooperative but forgetful. Pt is very [facility]. Pt sent to ER for [facility]MS [facility] and was found down on the floor. In ER was found to have a glucose of 38. Once corrected, pt now more alert and able to answer questions but is forgetful. Pt was recently inpt here and DCd to [facility]. Health history reviewed with pt and per paperwork. Pt UTD on flu vaccine. POC reviewed with pt, understanding verbalized. Pt was given written information regarding hospital policies, unit procedures and contact persons. Valuables were checked and left at bedside. [facility] called for updated medication list, stated that they will fax. Blood sugar checks performed q2 hrs and D5LR started per orders.
[2020-10-27] MEDS ORDERED: HYDROcodone/APAP 5/325MG 1 TAB TABLET PO PRN (07:15)
[2020-10-27] MEDS ORDERED: IOHEXOL 350 MG/ML 100 ML VIAL. IV ONE ×2 (07:45→10:45)
[2020-10-27] MEDS ORDERED: CONTRAST GIVEN. MC PRN ×2 (07:45→11:15)
[2020-10-27] MEDS: INSULIN LISPRO 300 UNITS/3 ML VIAL. SQ SCH ×3 (08:00→17:00)
[2020-10-27] MEDS ORDERED: METOPROLOL TART IMMED RELEASE 25 MG TABLET. PO SCH ×2 (09:00→10:00)
[2020-10-27] MEDS ORDERED: CEFDINIR 300 MG CAPSULE PO SCH (09:00)
--- NOTE | 2020-10-27 11:07 | PDOC2 ---
CONSULT DOS: DATE: 10/27/20 TIME: 10:57 Reason for Consult: Bradycardia Referring Physician: Dr. Stanton Chief Complaint Decreased level of consciousness Source: Chart review, Patient Problem List Problems Medical Problems: (1) Alteration consciousness Status: Acute (2) Hypoglycemia Status: Acute History of Present Illness The patient is a 70-year-old correction resident who was found to have altered level of consciousness and a severely decreased glucose level at her correction at 40. She was transferred to the emergency room by paramedics. She was treated with glucose with improvement in her level. She also reportedly had monitoring that showed a sinus bradycardia in the 40s with occasional episodes reportedly in the upper 20s. She was given 1 dose of atropine. She was recently discharged on 10/20/2020 for severe hypoglycemia and pancreatic cancer. It appears that her medication at the correction included metoprolol tartrate 12.5 mg p.o. twice daily. An EKG on 10/15/2020 showed a sinus rhythm rate of 50. Her EKG at this admission shows a sinus rhythm of [address]-T wave changes. A CT chest scan on 10/15/2020 showed mild ascites and no evidence of pulmonary emboli. On this admission her D-dimer was mildly elevated 2.12. The patient is more alert this morning. She is responsive to questions. Cardiovascular: CAD, HTN CENTRAL NERVOUS SYSTEM: CVA Heme/Onc: Cancer Endocrine: Diabetes Past Surgical History: Colectomy (Whipple procedure) Family History: Hypertension Smoke: No ALCOHOL: none Current Medications Current Medications Lactated Ringer's 1,000 ml @ 100 mls/hr Q10H IV Last administered on 10/27/20at 02:10; Start 10/27/20 at 02:00; Stop 10/27/20 at 11:59 Dextrose (Dextrose 50%-Water Syringe) 25 gm 1X ONCE IV Last administered on 10/27/20at 02:08; Start 10/27/20 at 02:00; Stop 10/27/20 at 02:42; Status DC Dextrose (Dextrose 50%-Water Syringe) 25 gm 1X ONCE IV Last administered on 10/27/20at 06:19; Start 10/27/20 at 02:15; Stop 10/27/20 at 02:42; Status DC Magnesium Sulfate 50 ml @ 25 mls/hr 1X ONCE IV Last administered on 10/27/20at 04:47; Start 10/27/20 at 04:15; Stop 10/27/20 at 06:14; Status DC Atropine Sulfate (ATROPINE 1mg SYRINGE) 1 mg 1X ONCE IV Last administered on 10/27/20at 04:00; Start 10/27/20 at 04:00; Stop 10/27/20 at 04:23; Status DC Atropine Sulfate (ATROPINE 0.5mg SYRINGE) 0.5 mg STK-MED ONCE .ROUTE ; Start 10/27/20 at 04:04; Stop 10/27/20 at 04:04; Status DC Atropine Sulfate (Atropine Sulfate) 1 mg STK-MED ONCE .ROUTE ; Start 10/27/20 at 04:04; Stop 10/27/20 at 04:04; Status DC Ondansetron HCl (Zofran) 4 mg PRN Q4HRS PRN IVP NAUSEA/VOMITING; Start 10/27/20 at 04:15; Stop 10/28/20 at 04:14 Acetaminophen (Tylenol) 650 mg PRN Q4HRS PRN PO FEVER > 100.3'F; Start 10/27/20 at 04:15; Stop 10/28/20 at 04:14 Albuterol/ Ipratropium (Duoneb) 3 ml RTQID NEB ; Start 10/27/20 at 08:00; Stop 10/28/20 at 07:59 Dextrose/Lactated Ringer's 1,000 ml @ 75 mls/hr 1X ONCE IV Last administered on 10/27/20at 05:55; Start 10/27/20 at 04:15; Stop 10/27/20 at 17:34 Aspirin (Aspirin Chewable) 81 mg DAILY PO ; Start 10/27/20 at 09:00 Atorvastatin Calcium (Lipitor) 20 mg QHS PO ; Start 10/27/20 at 21:00 Budesonide (Entocort) 3 mg DAILY PO ; Start 10/27/20 at 09:00 Cefdinir (Omnicef) 300 mg BID PO ; Start 10/27/20 at 09:00; Stop 10/27/20 at 07:31; Status DC Cetirizine HCl (ZyrTEC) 10 mg DAILY PO ; Start 10/27/20 at 09:00 Acetaminophen/ Hydrocodone Bitart (Lortab 5/325) 1 tab PRN TID PRN PO MODERATE PAIN; Start 10/27/20 at 07:15 Insulin Human Lispro (HumaLOG) TIDWMEALHC SQ ; Start 10/27/20 at 08:00 Metoprolol Tartrate (Lopressor) 12.5 mg BID PO ; Start 10/27/20 at 09:00; Stop 10/27/20 at 09:19; Status DC Spironolactone (Aldactone) 25 mg DAILY PO ; Start 10/27/20 at 09:00 Tamsulosin HCl (Flomax) 0.4 mg DAILY PO ; Start 10/27/20 at 09:00 Lactobacillus Rhamnosus (Culturelle) 1 cap DAILY PO ; Start 10/27/20 at 09:00 Iohexol (Omnipaque 350 Mg/ml) 100 ml 1X ONCE IV ; Start 10/27/20 at 07:45; Stop 10/27/20 at 07:46; Status DC Info (Do NOT chart on this entry -- for MONITORING) 1 each PRN DAILY PRN MC SEE COMMENTS; Start 10/27/20 at 07:45; Stop 10/29/20 at 07:44 Metoprolol Tartrate (Lopressor) 12.5 mg DAILY PO ; Start 10/27/20 at 10:00 Iohexol (Omnipaque 350 Mg/ml) 100 ml 1X ONCE IV ; Start 10/27/20 at 10:45; Stop 10/27/20 at 10:46; Status UNV Active Scripts Active Spironolactone 25 Mg Tablet 1 Tab PO DAILY Humalog (Insulin Lispro) 100 Unit/1 Ml Insuln.pen 0 Units SQ TIDWMEALHC Flomax (Tamsulosin Hcl) 0.4 Mg Cap.er.24h 0.4 Mg PO DAILY 30 Days Cefdinir 300 Mg Capsule 300 Mg PO BID 5 Days Budesonide Ec (Budesonide) 3 Mg Capdr...er 3 Mg PO DAILY 30 Days Reported Metoprolol Tartrate 25 Mg Tablet .5 Tab PO BID Hydrocodone-Apap 5-325 (Hydrocodone Bit/Acetaminophen) 1 Each Tablet 1-2 Tab PO PRN Q4-6HRS PRN TAKE NEEDED. Probiotic (Lactobacillus Acidophilus) 1 Each Capsule 1 Each PO DAILY LAST DOSE GIVEN: DATE: TODAY TIME: AM NEXT DOSE DUE: DATE: TOMORROW TIME: AM Metformin Hcl 500 Mg Tablet 1,000 Mg PO BIDWMEALS TAKE TODAY BEFORE SUPPER MEAL. Cetirizine Hcl 10 Mg Tablet 10 Mg PO DAILY LAST DOSE GIVEN: DATE: TODAY TIME: AM NEXT DOSE DUE: DATE: TOMORROW TIME: AM Atorvastatin Calcium 20 Mg Tablet 20 Mg PO QHS LAST DOSE GIVEN: DATE: YESTERDAY TIME: BEDTIME NEXT DOSE DUE: DATE: TODAY TIME: BEDTIME Aspirin 81 Mg Tab.chew 81 Mg PO DAILY LAST DOSE GIVEN: DATE: TODAY TIME: AM NEXT DOSE DUE: DATE: TOMORROW TIME: AM Allergies: Coded Allergies: No Known Drug Allergies (Unverified , 06/09/20) General: YES: Fatigue, Malaise Neurological: YES: Confusion, Weakness Physical Exam The patient was seen and evaluated. She is responsive to questions. Covid testing is pending VITALS Vital Signs Date Time Temp Pulse Resp B/P (MAP) Pulse Ox O2 Delivery O2 Flow Rate FiO2 10/27/20 10:00 88 20 114/60 (78) 98 Room Air 10/27/20 08:00 2.0 10/27/20 06:06 96.3 Labs Laboratory Tests Test 10/27/20 00:34 10/27/20 01:34 10/27/20 01:52 10/27/20 02:04 White Blood Count 8.3 x10^3/uL (4.0-11.0) Red Blood Count 3.02 x10^6/uL (3.50-5.40) Hemoglobin 10.3 g/dL (12.0-15.5) Hematocrit 30.8 % (36.0-47.0) Mean Corpuscular Volume 102 fL (79-100) Mean Corpuscular Hemoglobin 34 pg (25-35) Mean Corpuscular Hemoglobin Concent 33 g/dL (31-37) Red Cell Distribution Width 17.4 % (11.5-14.5) Platelet Count 174 x10^3/uL (140-400) Neutrophils (%) (Auto) 75 % (31-73) Lymphocytes (%) (Auto) 15 % (24-48) Monocytes (%) (Auto) 7 % (0-9) Eosinophils (%) (Auto) 2 % (0-3) Basophils (%) (Auto) 0 % (0-3) Neutrophils # (Auto) 6.2 x10^3uL (1.8-7.7) Lymphocytes # (Auto) 1.2 x10^3/uL (1.0-4.8) Monocytes # (Auto) 0.6 x10^3/uL (0.0-1.1) Eosinophils # (Auto) 0.2 x10^3/uL (0.0-0.7) Basophils # (Auto) 0.0 x10^3/uL (0.0-0.2) Prothrombin Time 16.1 SEC (9.4-11.4) Prothromb Time International Ratio 1.6 (0.9-1.1) Activated Partial Thromboplast Time 26 SEC (23-33) D-Dimer (Akilah) 2.12 mg/L (0.00-0.50) Sodium Level 141 mmol/L (136-145) Potassium Level 3.4 mmol/L (3.5-5.1) Chloride Level 109 mmol/L (98-107) Carbon Dioxide Level 25 mmol/L (21-32) Anion Gap 7 (6-14) Blood Urea Nitrogen 8 mg/dL (7-20) Creatinine 0.8 mg/dL (0.6-1.0) Estimated GFR (Cockcroft-Gault) 70.5 Glucose Level 38 mg/dL (70-99) Calcium Level 7.9 mg/dL (8.5-10.1) Magnesium Level 1.6 mg/dL (1.8-2.4) Total Bilirubin 1.4 mg/dL (0.2-1.0) Direct Bilirubin 0.8 mg/dL (0.0-0.2) Aspartate Amino Transf (AST/SGOT) 82 U/L (15-37) Alanine Aminotransferase (ALT/SGPT) 50 U/L (14-59) Alkaline Phosphatase 123 U/L (46-116) Creatine Kinase 42 U/L (26-192) Troponin I Quantitative 0.022 ng/mL (0-0.055) IY-Krr-H-Type Natriuretic Peptide 488 pg/mL (0-124) Total Protein 5.7 g/dL (6.4-8.2) Albumin 2.2 g/dL (3.4-5.0) Lipase 26 U/L (73-393) Glucose (Fingerstick) 40 mg/dL (70-99) 184 mg/dL (70-99) Urine Collection Type U cath Urine Color Yellow Urine Clarity Clear Urine pH 6.5 Urine Specific [place] 1.020 Urine Protein Neg (NEG-TRACE) Urine Glucose (UA) Neg mg/dL (NEG) Urine Ketones (Stick) Neg mg/dL (NEG) Urine Blood Neg (NEG) Urine Nitrite Neg (NEG) Urine Bilirubin Neg (NEG) Urine Urobilinogen Dipstick 0.2 mg/dL (0.2 mg/dL) Urine Leukocyte Esterase Neg (NEG) Urine RBC Occ /HPF (0-2) Urine WBC Occ /HPF (0-4) Urine Squamous Epithelial Cells Occ /LPF Urine Bacteria 0 /HPF (0-FEW) Urine Opiates Screen Neg (NEG) Urine Methadone Screen Neg (NEG) Urine Barbiturates Neg (NEG) Urine Phencyclidine Screen Neg (NEG) Urine Amphetamine/Methamphetamine Neg (NEG) Urine Benzodiazepines Screen Neg (NEG) Urine Cocaine Screen Neg (NEG) Urine Cannabinoids Screen Neg (NEG) Urine Ethyl Alcohol Neg (NEG) Test 10/27/20 02:37 10/27/20 03:17 10/27/20 04:52 10/27/20 04:54 Glucose (Fingerstick) 140 mg/dL (70-99) 133 mg/dL (70-99) 105 mg/dL (70-99) Troponin I Quantitative 0.023 ng/mL (0-0.055) Test 10/27/20 05:48 10/27/20 08:24 10/27/20 10:54 Glucose (Fingerstick) 72 mg/dL (70-99) 117 mg/dL (70-99) 127 mg/dL (70-99) Images Chest x-ray shows mild cardiomegaly. There is mild pulmonary vascular congestion which is stable from previous chest x-ray. CT scan of the head shows no acute intracranial changes. CT chest scan on 10/15/2020 showed no evidence of pulmonary emboli. Assessment/Plan 1. Hypoglycemic episode. As noted above the patient's glucose level was initially 40. This is been treated. She is more alert today. 2. Episodes of sinus bradycardia. Patient has a history of sinus bradycardia. She apparently was on low-dose beta-blockers and this will be discontinued. We will continue on monitoring. 3. Dementia. History of a CVA. Continue present medications and monitoring. 4. Pancreatic cancer. Continue present treatment. Further treatment as per her oncology service. Thank you for allowing us to participate in the care of your patient. FERNIE WOODRUFF MD Oct 27, 2020 11:07
--- NOTE | 2020-10-27 11:33 | RAD ---
EXAM: CT Pulmonary Angiogram INDICATION: Reason: soa + d dimer -DO AT 830AM WHEN I HAVE HELP - MIGHT B BED / Spl. Instructions: / History: TECHNIQUE: Multi-detector row images were acquired from the thoracic inlet through the upper abdomen with the use of IV contrast. Sagittal and coronal images were acquired from the transaxial data. DC P images of the pulmonary arteries were obtained. All CT scans performed at this facility utilize dos e optimization techniques as appropriate to the exam, including the following: Automated exposure con trol and adjustment of the mA and/or KV according to patient size (this includes techniques or standa rdized protocols for targeted exams where dose is indication/reason for exam). IV CONTRAST: Administered COMPARISON: CT pulmonary angiogram of 10/15/2020 FINDINGS: PULMONARY ARTERIES: No pulmonary emboli are identified. There is persistent enlargement of the main pulmonary artery, measuring 3.8 cm. CARDIOVASCULAR: Multivessel coronary calcifications. Otherwise unremarkable. Aorta is normal caliber . Left tunneled chest port with tip near the cavoatrial junction. MEDIASTINUM & CORAZON: No adenopathy or masses. Calcified right hilar lymph nodes. LUNGS: No pulmonary infiltrate, nodule, or other focal abnormality. PLEURAL SPACE: No pleural effusions or pneumothorax. OSSEOUS & SOFT TISSUE: Unremarkable ABDOMEN: Included upper abdomen suggests hepatomegaly and moderate ascites. IMPRESSION: 1. No evidence of pulmonary emboli. 2. Findings suggesting pulmonary arterial enlargement from underlying pulmonary arterial hypertension . 3. Coronary artery disease. 4. Hepatomegaly and ascites. Electronically signed by: Star Bueno MD (10/27/2020 11:31 AM) [id number]
[2020-10-27] MEDS: ASPIRIN CHEWABLE 81 MG TABLET. PO SCH (14:40)
[2020-10-27] MEDS: LACTOBACILLUS RHAMNOSUS GG 1 CAPSULE. PO SCH (14:40)
[2020-10-27] MEDS: TAMSULOSIN 0.4 MG CAP.ER.24H. PO SCH (14:40)
[2020-10-27] MEDS: CETIRIZINE HCL 10 MG TABLET PO SCH (14:41)
[2020-10-27] MEDS: BUDESONIDE 3 MG CAP.ER.24H. PO SCH (14:42)
[2020-10-27] MEDS: SPIRONOLACTONE 25 MG TABLET PO SCH (14:43)
[2020-10-27 15:09] LABS: HEMATOCRIT 28.9 % (36.0-47.0); HEMOGLOBIN 9.5 g/dL (12.0-15.5)
--- NOTE | 2020-10-27 19:12 | HP ---
ADMIT DATE: 10/27/2020 HISTORY OF PRESENT ILLNESS: This is one of several admissions for this [facility], apparently had poor intake of food, but still received regular doses of insulin. The patient's sugars dropped had down into the 30s and 40s. She had a change in mental status and the patient was brought in and was given additional doses of D10 to get her sugar back up. The patient apparently was also seen by Dr. Hummel for some chest discomfort, but that was negligible. The patient, in the past, had had some cardiac problems, but her main issue today was this reoccurrence of her hypoglycemia. PAST MEDICAL HISTORY: Hard of hearing. TIAs, dementia, bradycardia, history of pancreatic cancer in therapy down at , she is in remission, coronary artery disease, congestive heart failure, hiatal hernia, pancreatic surgery, Whipple procedure, endocrine disorders, diabetes, has a history of smoking, protein malnutrition, anemia, chemotherapy, and radiation therapy. IMMUNIZATIONS: Up-to-date. She has a port. FAMILY HISTORY: Positive for colon cancer, heart failure, and diabetes. ALLERGIES: No known allergies. MEDICATIONS: Reconciled except for the fact that she was taken off any long-acting insulin and only use a very mild sliding scale depending on her eating habits. SOCIAL HISTORY: The patient has about [id number] history of smoking. Denies alcohol use. She is a full code. REVIEW OF SYSTEMS: The patient is extremely hard of hearing. Denies chest pain, shortness of breath, abdominal pain, just generalized weakness and change in mentation. PHYSICAL EXAMINATION: GENERAL: This is a white female looking older than stated age. VITAL SIGNS: Blood pressure 120/40, respiratory rate 18, pulse 60, afebrile. HEENT: The patient's head was atraumatic and normocephalic. Eyes, PERRLA without jaundice. The mouth and throat were normal. NECK: Supple, without JVD, carotid bruits, nor thyromegaly. LUNGS: Diminished. Poor movement of air. SKIN: Warm and dry. Tanning. CARDIOVASCULAR: Regular sinus rhythm. ABDOMEN: Soft, nontender. No rebounding, no guarding. Positive bowel sounds. EXTREMITIES: No clubbing, cyanosis, nor edema. NEUROLOGIC: The patient is alert, but extremely hard of hearing. Speech is very good, because of this hearing deficit no doubt, but able to move all extremities and answer a few questions. LABORATORY DATA: Blood sugar was 38. Sodium and potassium were 140 and 3.4. Her hemoglobin and hematocrit are 9.5 and 28. The patient did have an elevated D-dimer. CTA was performed, no PE. She did have some pulmonary arterial hypertension, coronary artery disease, and some ascites. No doubt from her history of pancreatic cancer. IMPRESSION: Hypoglycemia, pancreatic cancer, change in mental status secondary to hypoglycemia, anemia, bradycardia, dementia, Alzheimer disease, severe protein malnutrition, elevated D-dimer, failure to thrive as an elderly individual due to poor intake. PLAN: The patient will be monitored and her blood sugars adjusted possibly just on sliding scales and make further evaluation on her as indicated. DARREN WAITE MD DR: JOSEPHINE/macho JOB#: [id number] / [id number]
[2020-10-27] MEDS ORDERED: ATORVASTATIN CALCIUM 20 MG TABLET PO SCH (21:00)
[2020-10-28 05:36] VITALS: BP 111/50
--- NOTE | 2020-10-28 06:25 | NUR ---
Nursing note: Pt up SBA to toilet, had BM this AM, osman draining as documented, yellow clear urine. Pt blood sugars recorded q4h.
[2020-10-28 06:47] LABS: BASO % 1 % (0-3); EOS # 0.2 x10^3/uL (0.0-0.7); EOS % 3 % (0-3); HEMATOCRIT 27.9 % (36.0-47.0); HEMOGLOBIN 9.3 g/dL (12.0-15.5); LYMPH # 1.5 x10^3/uL (1.0-4.8); LYMPH % 28 % (24-48); MEAN CORPUSCULAR HEMOGLOBIN 34 pg (25-35); MEAN CORPUSCULAR HGB CONC 33 g/dL (31-37); MEAN CORPUSCULAR VOLUME 102 fL (79-100); MONO # 0.4 x10^3/uL (0.0-1.1); MONO % 8 % (0-9); NEUT # 3.3 x10^3uL (1.8-7.7); NEUT % 61 % (31-73); PLATELET COUNT 155 x10^3/uL (140-400); RED BLOOD COUNT 2.74 x10^6/uL (3.50-5.40); RED CELL DISTRIBUTION WIDTH 17.2 % (11.5-14.5); WHITE BLOOD COUNT 5.4 x10^3/uL (4.0-11.0)
[2020-10-28 06:57] LABS: CALCIUM 7.7 mg/dL (8.5-10.1); CREATININE 0.8 mg/dL (0.6-1.0); GFR 70.5; POTASSIUM 3.8 mmol/L (3.5-5.1)
[2020-10-28] MEDS: CETIRIZINE HCL 10 MG TABLET PO SCH (09:29)
[2020-10-28] MEDS: ASPIRIN CHEWABLE 81 MG TABLET. PO SCH (09:29)
[2020-10-28] MEDS: SPIRONOLACTONE 25 MG TABLET PO SCH (09:29)
[2020-10-28] MEDS: TAMSULOSIN 0.4 MG CAP.ER.24H. PO SCH (09:29)
[2020-10-28] MEDS: LACTOBACILLUS RHAMNOSUS GG 1 CAPSULE. PO SCH (09:29)
[2020-10-28] MEDS: BUDESONIDE 3 MG CAP.ER.24H. PO SCH (09:30)
[2020-10-28] MEDS ORDERED: METF500T16 PO (09:52)
[2020-10-28] MEDS ORDERED: INSU100I11 SQ (09:52)
--- NOTE | 2020-10-28 12:14 | NUR ---
DISCHARGE NOTE: PT WAS DISCHARGED FROM HOSPITAL. VS WERE STABLE, REFER TO CHART. PT IV'S WERE D/C AND PT WAS ESCORTED OUT OF BUILDING VIA [facility] STAFF. PT SIGNED HER DISCHARGE PAPERWORK AND WAS INSTRUCTED TO GIVE IT TO NURSING STAFF UPON ARRIVAL.
[2020-10-29 05:37] LABS: HEMOGLOBIN A1C 8.8 % (4.8-5.6)
--- NOTE | 2020-10-30 18:24 | DS ---
DATE OF DISCHARGE: 10/28/2020 HOSPITAL COURSE: A 70-year-old female [facility] The patient again had problems with her sugars dropping down into the 30s and 40s. Apparently had received insulin at the nursing facility and then she failed to eat her dinner. As a result of that, the patient dropped like to say in the 30s and 40s and had marked mental status changes of hypoglycemia and as a result was brought in to the hospital for further evaluation. Given D10, brought that sugar back up, took her off insulin altogether except for a very mild sliding scale, which I think will continue to help her with her maintaining her sugar without collapsing it. Otherwise, the patient's COVID-19 negative. Otherwise, the patient made good progress during the rest of her hospitalization baseline for her. She does have a chronic Alzheimer's and a history of pancreatic cancer, also, severe __, which should be addressed. Her TSH was 14.4. IMPRESSION: Hypoglycemia, change in mental status, history of pancreatic cancer, dementia, Alzheimer type, severe protein malnutrition, failure to thrive as an elderly individual due to poor intake. PLAN: The patient will be on a regular diet. Activity as tolerated. See MRAD and follow up as an outpatient. She will be taken back to the nursing facility for further evaluation at that facility. DARREN WAITE MD DR: JOSEPHINE/macho JOB#: [id number] / [id number]
== END 2020-10-28 10:45 | DRG 637 ==
LOC: ER 01:28 → ICU 04:00
PROVIDERS: ADMIT Family Medicine; ATTEND Family Medicine
DX: E11.649 Type 2 diabetes mellitus with hypoglycemia without coma (principal); E43 Unspecified severe protein-calorie malnutrition; C25.9 Malignant neoplasm of pancreas, unspecified; D64.9 Anemia, unspecified; E11.65 Type 2 diabetes mellitus with hyperglycemia; E78.5 Hyperlipidemia, unspecified; E83.42 Hypomagnesemia; F02.80 Dementia in other diseases classified elsewhere, unspecified severity, without behavioral disturbance, psychotic disturbance, mood disturbance, and anxiety; G30.9 Alzheimer's disease, unspecified; I11.0 Hypertensive heart disease with heart failure; I25.10 Atherosclerotic heart disease of native coronary artery without angina pectoris; I50.9 Heart failure, unspecified; R62.7 Adult failure to thrive; Z80.0 Family history of malignant neoplasm of digestive organs; Z82.49 Family history of ischemic heart disease and other diseases of the circulatory system; Z83.3 Family history of diabetes mellitus; Z86.73 Personal history of transient ischemic attack (TIA), and cerebral infarction without residual deficits; Z87.891 Personal history of nicotine dependence; F41.9 Anxiety disorder, unspecified; Z68.23 Body mass index [BMI] 23.0-23.9, adult; Z20.822 Contact with and (suspected) exposure to COVID-19
CPT/HCPCS: 36415; 51702; 70450; 71045; 71275; 80048; 80076; 80307; 81001; 82550; 82947; 83036; 83690; 83735; 83880; 84443; 84484; 85014; 85018; 85025; 85379; 85610; 85730; 93005; 96361; 96365; 96375; J0461; J1815; J3475; J7120; Q9967; U0003; 99291-25

== ENCOUNTER → 2020-10-31 | Outpatient (CLI) | payer MEDICARE ==
[2020-10-28 05:36] VITALS: BP 111/50
--- NOTE | 2020-10-31 15:55 | CARD ---
MR#: [id number] Date of Study: 10/31/2020 Ordering Physician: LUIS MANUEL MARKS, Referring Physician: LUIS MANUEL MARKS, Tech: Ana Chavesgiokirt [facility] APPROVED REPORT EXAM: Two-dimensional and M-mode echocardiogram with Doppler and color Doppler. Other Information Quality : AverageHR: 56bpm INDICATION Bradycardia 2D DIMENSIONS Left Atrium(2D)3.4 (1.6-4.0cm)IVSd1.0 (0.7-1.1cm) Aortic Root(2D)3.3 (2.0-3.7cm)LVDd5.2 (3.9-5.9cm) LVOT Diameter2.0 (1.8-2.4cm)PWd0.8 (0.7-1.1cm) LVDs3.1 (2.5-4.0cm)FS (%) 39.5 % SV90.6 mlLVEF(%)60.7 (>50%) Aortic Valve AoV Peak Johnathon.153.8cm/sAoV VTI38.1cm AO Peak GR.9.5mmHgLVOT Peak Johnathon.114.9cm/s LVOT VTI 27.50cmAO Mean GR.5mmHg ELIZABETH (VMAX)2.64hw9ACQ (VTI)2.37cm2 Mitral Valve MV E Yjcxmwmy57.5cm/sMV DECEL [id number] MV A Hwxyxupg32.6cm/sE/A Ratio0.8 Pulmonary Valve PV Peak Xqtkrgjv80.5cm/sPV Peak Grad.4mmHg Tricuspid Valve TR P. Abcrcycq203fl/sRAP WWPQJVDA4rnCy TR Peak Gr.85xqPzBVWK70wqKt LEFT VENTRICLE The left ventricle is normal size. There is normal left ventricular wall thickness. The left ventricu lar systolic function is normal. The Ejection Fraction is 55%. There is normal LV segmental wall corby on. The left ventricular diastolic function and filling is normal for age. RIGHT VENTRICLE The right ventricle is normal size. There is normal right ventricular wall thickness. The right ventr icular systolic function is normal. ATRIA The left atrium size is normal. The right atrium size is normal. The interatrial septum is intact wit h no evidence for an atrial septal defect or patent foramen ovale as noted on 2-D or Doppler imaging. AORTIC VALVE The aortic valve is normal in structure and function. Doppler and Color Flow revealed no significant aortic regurgitation. There is no significant aortic valvular stenosis. Calculated aortic valve area is 2.4 cm2 with maximum pressure gradient of 10 mmHg and mean pressure gradient of 5 mmHg. MITRAL VALVE The mitral valve is normal in structure and function. There is no evidence of mitral valve prolapse. There is no mitral valve stenosis. Doppler and Color-flow revealed trace mitral regurgitation. TRICUSPID VALVE The tricuspid valve is normal in structure and function. Doppler and Color Flow revealed trace tricus pid regurgitation with an estimated PAP of 24 mmHg. There is no tricuspid valve stenosis. PULMONIC VALVE The pulmonic valve is not well visualized. Doppler and Color Flow revealed no pulmonic valvular regur gitation. GREAT VESSELS The aortic root is normal in size. The IVC is normal in size and collapses >50% with inspiration. PERICARDIAL EFFUSION There is no evidence of significant pericardial effusion. Critical Notification Critical Value: No <Conclusion> The left ventricular systolic function is normal. The Ejection Fraction is 55%. There is normal LV segmental wall motion. Trace mitral regurgitation. Trace tricuspid regurgitation with an estimated PAP of 24 mmHg. There is no evidence of significant pericardial effusion. Signed by : Luis Manuel Marks, Electronically Approved : 10/31/2020 15:55:09
== END ==
LOC: ECHO 14:19
PROVIDERS: ATTEND Internal Medicine Cardiovascular Disease
DX: R00.1 Bradycardia, unspecified (principal)
CPT/HCPCS: 93306

== ENCOUNTER 2021-12-29 09:19 | Emergency (ER) | payer MEDICARE, MEDICAID ==
[~2021-12-29] VITALS: Ht 160 cm; Wt 58.9 kg
[2021-12-29] MEDS ORDERED: DEXTROSE 50% 25 GM / 50ML DISP.SYRIN. IV ONE (10:00)
[2021-12-29] MEDS ORDERED: IV NORMAL SALINE 1,000ML 1,000 ML IV ONE (10:00)
--- NOTE | 2021-12-29 10:01 | PHYS DOC ---
Past History Past Medical History: Anxiety, CAD, Cancer, CVA, Diabetes, Heart Disease, Hypertension, Hypotension, Stroke, Testicular Torsion, UTI Past Surgical History: Cholecystectomy, Other Additional Past Surgical Histo: PANCREAS REMOVED DUE TO CANCER Alcohol Use: None Drug Use: None General Adult EDM: Chief Complaint: MECHANICAL FALL HPI: HPI: 71-year-old female presents from the nursing care facility via EMS for fall. The patient was found down on the ground in her shower by staff. The patient states that she got up and was in the bathroom and got dizzy and fell backwards and hit her head. She does not believe she lost consciousness. She was unable to get up off the floor that is why she was still laying there. Staff reported that she was not quite herself this morning and more sleepy than usual. She does have diabetes and uses insulin. She was given her morning insulin but did not get a chance to eat breakfast. She tells me that she has some mild neck pain but is mostly concerned about her right hip and thigh. Patient is hard of hearing at baseline but is normally alert, oriented and able to take care of herself. She has early dementia. She denies fever or chills. Review of Systems: Review of Systems: Constitutional: Denies fever or chills Eyes: Denies change in visual acuity HENT: Denies nasal congestion or sore throat Respiratory: Denies cough or shortness of breath Cardiovascular: Denies chest pain or edema GI: Denies abdominal pain, nausea, vomiting, bloody stools or diarrhea : Denies dysuria Musculoskeletal: Right hip pain Integument: Denies rash Neurologic: Dizziness. Denies headache, focal weakness or sensory changes Endocrine: Denies polyuria or polydipsia Lymphatic: Denies swollen glands Psychiatric: Denies depression or anxiety Allergies: Allergies: Allergies Coded Allergies Type Severity Reaction Last Updated Verified No Known Drug Allergies 06/09/20 No Physical Exam: PE: Constitutional: Well developed, well nourished, sleepy but arousable, no acute distress, non-toxic appearance. [] HENT: Hard of hearing. Normocephalic, atraumatic, bilateral external ears normal, oropharynx moist, no oral exudates, nose normal. [] Eyes: PERRLA, EOMI, conjunctiva normal, no discharge. [] Neck: Normal range of motion, no tenderness, supple, no stridor. [] Cardiovascular: Heart rate 68, regular rhythm, no murmur [] Lungs & Thorax: Bilateral breath sounds clear to auscultation [] Abdomen: Bowel sounds normal, soft, no tenderness, no masses, no pulsatile masses. [] Skin: Warm, dry, no erythema, no rash. [] Back: No tenderness, no CVA tenderness. [] Extremities: Tenderness of the right hip with palpation, range of motion deferred. [] Neurologic: Alert and oriented X 3, normal motor function, normal sensory function, no focal deficits noted. [] Psychologic: Affect normal, judgement normal, mood normal. [] EKG: EKG: Sinus rhythm, rate 55, leftward axis, no ST elevation or depression. [] Radiology/Procedures: Radiology/Procedures: [] Impressions: XR RIGHT HIP (WITH OR WITHOUT PELVIS) 2 VIEWS Clinical indications: Reason: fall /pain Findings: There is a lucency extending across the intertrochanteric area. No hip dislocation is seen. No diastases of the symphysis pubis or either SI joint is seen. No lytic process is evident. IMPRESSION: There is a lucency extending across the intertrochanteric area. This could represent a fat pad or fracture line. Therefore, if the patient is unable to bear weight, recommend a CT study of the right hip for further evaluation. Electronically signed by: Bert Stallworth MD (12/29/2021 10:52 AM) [id number] DICTATED AND SIGNED BY: BERT STALLWORTH MD DATE: 12/29/21 1050 CC: IRMA MENDEZ DO; MAYNOR ARMSTRONG MD ~ [facility] Compliance Statement: One or more of the following individualized dose reduction techniques were utilized for this examination: 1. Automated exposure control 2. Adjustment of the mA and/or kV according to patient size 3. Use of iterative reconstruction technique CT HEAD AND CERVICAL SPINE WITHOUT CONTRAST History: Reason: syncope, fall Comparison: CT head without contrast October 27, 2020. Procedure: Axial images are obtained of the head from the skull base through the vertex without IV contrast. Noncontrast helical CT of the cervical spine was performed. Axial, sagittal, and coronal reconstructions were obtained. Findings: The ventricles and sulci are prominent, consistent with generalized cerebral atrophy. There is periventricular white matter hypoattenuation. This is a nonspecific finding but is commonly due to chronic small vessel ischemic disease in a patient of this age. No mass-effect, midline shift, hemorrhage or obvious acute infarction is identified. Basilar cisterns are patent. Bone windows demonstrate no significant calvarial abnormality. There is bilateral ethmoid and left maxillary sinus mucosal thickening. Mastoid air cells are well aerated. There is no evidence of acute fracture or acute malalignment of the cervical spine. Facet joints are mildly hypertrophic but intact. There is grade 1 anterolisthesis of C7 on T1. There is negligible grade 1 retrolisthesis of C5 on C6. Alignment is otherwise maintained. There is degenerative endplate spurring. The disc spaces are mostly maintained, there is mild narrowing at C5/C6. There is uncinate process hypertrophy of C5/C6. Visualized soft tissues of the neck demonstrate no significant abnormalities. The visualized lung apices are clear. There are cardiac pacer wires. IMPRESSION: 1. No acute intracranial abnormality. 2. No acute fracture of the cervical spine. Electronically signed by: Miguel Ángel Weston MD (12/29/2021 10:51 AM) [id number] DICTATED AND SIGNED BY: MIGUEL ÁNGEL WESTON MD DATE: 12/29/21 1045 CC: IRMA MENDEZ DO; MAYNOR ARMSTRONG MD ~ [facility] Compliance Statement: One or more of the following individualized dose reduction techniques were utilized for this examination: 1. Automated exposure control 2. Adjustment of the mA and/or kV according to patient size 3. Use of iterative reconstruction technique CT LOWER RIGHT EXTREMITY WITHOUT CONTRAST Clinical Indication: Reason: possible hip fracture / Spl. Instructions: / History: Comparison: AP pelvis and right hip, earlier same day. TECHNIQUE: Helical CT imaging of the right hip is performed without IV contrast. Findings: There are acute traumatic intertrochanteric fracture of the right femur. Fracture line extends into the lesser and greater trochanter. Anteriorly the f racture fragments are by 7 mm. Posteriorly the fracture is nondisplaced. There is overall no significant displacement. The fracture line extends to the subtrochanteric posterior cortex, image 27. The visualized pelvic bones are intact. There is a 4 mm faint sclerotic density of the right iliac bone. The hip joint is intact, no dislocation. The uterus is probably atrophic. Urinary bladder is unremarkable. No obvious pelvic free fluid. No obvious intramuscular hematoma is identified. IMPRESSION: Acute traumatic intertrochanteric right femur fracture. Electronically signed by: Miguel Ángel Weston MD (12/29/2021 11:38 AM) [id number] DICTATED AND SIGNED BY: MIGUEL ÁNGEL WESTON MD DATE: 12/29/21 1133 CC: IRMA MENDEZ DO; MAYNOR ARMSTRONG MD ~ Heart Score: C/O Chest Pain: N/A Risk Factors: Risk Factors: DM, Current or recent (<one month) smoker, HTN, HLP, family history of CAD, obesity. Risk Scores: Score 0 - 3: 2.5% MACE over next 6 weeks - Discharge Home Score 4 - 6: 20.3% MACE over next 6 weeks - Admit for Clinical Observation Score 7 - 10: 72.7% MACE over next 6 weeks - Early Invasive Strategies Course & Med Decision Making: Course & Med Decision Making Pertinent Labs and Imaging studies reviewed. (See chart for details) The patient's initial blood sugar was 106. Repeat in emergency room is 78. I am concerned that I will continue to follow so was given an amp of D50. Patient CT of her head and neck are negative for acute findings. The x-rays of her pelvis show possible lucency reviewed with CT. the patient CT does reveal an intertrochanteric fracture. We will consult orthopedics and transfer the patient. I spoke with the orthopedic surgeon on-call at [facility] and he has accepted the patient for transfer. He has requested n.p.o. after midnight. I spoke with hospitalist, Dr. Matson and he has accepted the patient for transfer. She will be transferred by ambulance. [] Dragon Disclaimer: Calvin Disclaimer: This electronic medical record was generated, in whole or in part, using a voice recognition dictation system. Departure Departure: Impression: Primary Impression: Fracture, intertrochanteric, right femur Disposition: 02 SHORT TERM HOSPITAL Condition: STABLE Referrals: MAYNOR ARMSTRONG MD (PCP) IRMA MENDEZ DO Dec 29, 2021 10:01
--- NOTE | 2021-12-29 10:54 | RAD ---
XR RIGHT HIP (WITH OR WITHOUT PELVIS) 2 VIEWS Clinical indications: Reason: fall /pain Findings: There is a lucency extending across the intertrochanteric area. No hip dislocation is seen . No diastases of the symphysis pubis or either SI joint is seen. No lytic process is evident. IMPRESSION: There is a lucency extending across the intertrochanteric area. This could represent a fa t pad or fracture line. Therefore, if the patient is unable to bear weight, recommend a CT study of t he right hip for further evaluation. Electronically signed by: Ryan Stallworth MD (12/29/2021 10:52 AM) [id number]
--- NOTE | 2021-12-29 10:54 | RAD ---
PQRS Compliance Statement: One or more of the following individualized dose reduction techniques were utilized for this examinat ion: 1. Automated exposure control 2. Adjustment of the mA and/or kV according to patient size 3. Use of iterative reconstruction technique CT HEAD AND CERVICAL SPINE WITHOUT CONTRAST History: Reason: syncope, fall Comparison: CT head without contrast October 27, 2020. Procedure: Axial images are obtained of the head from the skull base through the vertex without IV co ntrast. Noncontrast helical CT of the cervical spine was performed. Axial, sagittal, and coronal rec onstructions were obtained. Findings: The ventricles and sulci are prominent, consistent with generalized cerebral atrophy. There is periv entricular white matter hypoattenuation. This is a nonspecific finding but is commonly due to chroni c small vessel ischemic disease in a patient of this age. No mass-effect, midline shift, hemorrhage or obvious acute infarction is identified. Basilar cistern s are patent. Bone windows demonstrate no significant calvarial abnormality. There is bilateral ethmoid and left maxillary sinus mucosal thickening. Mastoid air cells are well ae rated. There is no evidence of acute fracture or acute malalignment of the cervical spine. Facet joints are mildly hypertrophic but intact. There is grade 1 anterolisthesis of C7 on T1. There is negligible grade 1 retrolisthesis of C5 on C6. Alignment is otherwise maintained. There is degener ative endplate spurring. The disc spaces are mostly maintained, there is mild narrowing at C5/C6. The re is uncinate process hypertrophy of C5/C6. Visualized soft tissues of the neck demonstrate no significant abnormalities. The visualized lung api lashawn are clear. There are cardiac pacer wires. IMPRESSION: 1. No acute intracranial abnormality. 2. No acute fracture of the cervical spine. Electronically signed by: Miguel Ángel Weston MD (12/29/2021 10:51 AM) [id number]
--- NOTE | 2021-12-29 11:41 | RAD ---
PQRS Compliance Statement: One or more of the following individualized dose reduction techniques were utilized for this examinat ion: 1. Automated exposure control 2. Adjustment of the mA and/or kV according to patient size 3. Use of iterative reconstruction technique CT LOWER RIGHT EXTREMITY WITHOUT CONTRAST Clinical Indication: Reason: possible hip fracture / Spl. Instructions: / History: Comparison: AP pelvis and right hip, earlier same day. TECHNIQUE: Helical CT imaging of the right hip is performed without IV contrast. Findings: There are acute traumatic intertrochanteric fracture of the right femur. Fracture line extends into t he lesser and greater trochanter. Anteriorly the fracture fragments are by 7 mm. Posteriorl y the fracture is nondisplaced. There is overall no significant displacement. The fracture line exten ds to the subtrochanteric posterior cortex, image 27. The visualized pelvic bones are intact. There is a 4 mm faint sclerotic density of the right iliac kay ne. The hip joint is intact, no dislocation. The uterus is probably atrophic. Urinary bladder is unremarkable. No obvious pelvic free fluid. No ob vious intramuscular hematoma is identified. IMPRESSION: Acute traumatic intertrochanteric right femur fracture. Electronically signed by: Miguel Ángel Weston MD (12/29/2021 11:38 AM) [id number]
[2021-12-29 12:23] LABS: CALCIUM 8.8 mg/dL (8.5-10.1); CREATININE 0.8 mg/dL (0.6-1.0); GFR 70.3; POTASSIUM 3.3 mmol/L (3.5-5.1)
[2021-12-29 12:25] LABS: BASO % 0 % (0-3); EOS % 1 % (0-3); HEMATOCRIT 28.8 % (36.0-47.0); HEMOGLOBIN 9.7 g/dL (12.0-15.5); LYMPH # 0.6 x10^3/uL (1.0-4.8); LYMPH % 16 % (24-48); MEAN CORPUSCULAR HEMOGLOBIN 33 pg (25-35); MEAN CORPUSCULAR HGB CONC 34 g/dL (31-37); MEAN CORPUSCULAR VOLUME 97 fL (79-100); MONO # 0.4 x10^3/uL (0.0-1.1); MONO % 10 % (0-9); NEUT # 2.9 x10^3uL (1.8-7.7); NEUT % 73 % (31-73); PLATELET COUNT 138 x10^3/uL (140-400); RED BLOOD COUNT 2.96 x10^6/uL (3.50-5.40); RED CELL DISTRIBUTION WIDTH 17.5 % (11.5-14.5)
[2021-12-29 12:30] LABS: ALBUMIN 2.6 g/dL (3.4-5.0); ALBUMIN/GLOBULIN RATIO 0.8 (1.0-1.7); TOTAL BILIRUBIN 2.8 mg/dL (0.2-1.0)
--- NOTE | 2021-12-29 12:49 | EKG ---
[address] [address] Test Date: 2021-12-29 Test Time: 10:30:49 Pat Name: ABRIL NAGY Department: Room: Gender: F News Producer: DL : [id number] Requested By: IRMA MENDEZ Order Number: [id number] Reading MD: Nicanor Marks Measurements Intervals [place]athy Rate: 55 P: 36 VA: 186 QRS: -3 QRSD: 108 T: 76 QT: 480 QTc: 462 Interpretive Statements SINUS RHYTHM LEFTWARD AXIS LOW LIMB LEAD VOLTAGE ST & T ABNORMALITY, CONSIDER ANTERIOR ISCHEMIA OR LEFT VENTRICULAR STRAIN T ABNORMALITY IN LATERAL LEADS ABNORMAL ECG Electronically Signed On 01-04-2022 14:10:57 CDT by Nicanor Marks
[2021-12-29 12:52] VITALS: BP 114/53
== END 2021-12-29 14:05 | disposition short-term general hospital (02) ==
LOC: ER 09:19
DX: S72.141A Displaced intertrochanteric fracture of right femur, initial encounter for closed fracture (principal); M54.2 Cervicalgia; I25.10 Atherosclerotic heart disease of native coronary artery without angina pectoris; F41.9 Anxiety disorder, unspecified; E11.9 Type 2 diabetes mellitus without complications; I11.0 Hypertensive heart disease with heart failure; H91.90 Unspecified hearing loss, unspecified ear; Z87.440 Personal history of urinary (tract) infections; Z86.73 Personal history of transient ischemic attack (TIA), and cerebral infarction without residual deficits; W18.09XA Striking against other object with subsequent fall, initial encounter; Y93.89 Activity, other specified; Y92.89 Other specified places as the place of occurrence of the external cause; Y99.8 Other external cause status
CPT/HCPCS: 36415; 70450; 72125; 73502; 73700; 80053; 82947; 84484; 85025; 93005; 96361; 96374; 96375; 96376; 99285; J3010; J7030

== ENCOUNTER 2022-01-31 20:51 | Inpatient (IN) | payer MEDICARE, OTHER ==
[~2022-01-31] VITALS: Ht 161.3 cm; Wt 55.1 kg
[2022-01-31] MEDS ORDERED: IV NORMAL SALINE 500ML 500 ML IV ONE (21:00)
--- NOTE | 2022-01-31 21:04 | PHYS DOC ---
Past History Past Medical History: Anxiety, CAD, Cancer, CVA, Diabetes, Heart Disease, Hypertension, Hypotension, Stroke, Testicular Torsion, UTI Additional Past Medical Histor: beginning stages of Alzheimers, bradycardia Past Surgical History: Cholecystectomy, Other Additional Past Surgical Histo: PANCREAS REMOVED DUE TO CANCER Alcohol Use: None Drug Use: None General Adult EDM: Chief Complaint: ABDOMINAL PAIN HPI: HPI: 71-year-old female presents via EMS from her rehabilitation facility. She states having increased abdominal pain today. She tells me that it seems to move all over. She had pancreatic cancer but is now 1 year cancer free. The care facility thought that the patient's abdomen might be more distended. The patient does not know if it is any larger than usual. She denies fever or chills. No reported nausea or vomiting. Review of Systems: Review of Systems: Constitutional: Denies fever or chills Eyes: Denies change in visual acuity HENT: Denies nasal congestion or sore throat Respiratory: Denies cough or shortness of breath Cardiovascular: Denies chest pain or edema GI: Generalized abdominal pain. Denies nausea, vomiting, bloody stools or diarrhea : Denies dysuria Musculoskeletal: Denies back pain or joint pain Integument: Denies rash Neurologic: Denies headache, focal weakness or sensory changes Endocrine: Denies polyuria or polydipsia Lymphatic: Denies swollen glands Psychiatric: Denies depression or anxiety Current Medications: Current Meds: Current Medications Medications (Trade) Dose Ordered Sig/Alice Start Time Stop Time Status Last Admin Dose Admin Sodium Chloride 500 ml @ 0 mls/hr 1X ONCE 01/31/22 21:00 01/31/22 21:01 UNV Allergies: Allergies: Allergies Coded Allergies Type Severity Reaction Last Updated Verified No Known Drug Allergies 06/09/20 No Physical Exam: PE: Constitutional: Well developed, well nourished, no acute distress, non-toxic appearance. [] HENT: Normocephalic, atraumatic, bilateral external ears normal, oropharynx moist, no oral exudates, nose normal. [] Eyes: PERRLA, EOMI, conjunctiva normal, no discharge. [] Neck: Normal range of motion, no tenderness, supple, no stridor. [] Cardiovascular: Heart rate 88, regular rhythm, no murmur [] Lungs & Thorax: Bilateral breath sounds clear to auscultation [] Abdomen: Bowel sounds normal, enlarged but soft, no tenderness, large, reducible periumbilical hernia. [] Skin: Warm, dry, no erythema, no rash. [] Back: No tenderness, no CVA tenderness. [] Extremities: No tenderness, no cyanosis, no clubbing, ROM intact, no edema. [] Neurologic: Alert and oriented X 3, normal motor function, normal sensory function, no focal deficits noted. [] Psychologic: Affect normal, judgement normal, mood normal. [] EKG: EKG: [] Radiology/Procedures: Radiology/Procedures: [] Heart Score: C/O Chest Pain: N/A Risk Factors: Risk Factors: DM, Current or recent (<one month) smoker, HTN, HLP, family history of CAD, obesity. Risk Scores: Score 0 - 3: 2.5% MACE over next 6 weeks - Discharge Home Score 4 - 6: 20.3% MACE over next 6 weeks - Admit for Clinical Observation Score 7 - 10: 72.7% MACE over next 6 weeks - Early Invasive Strategies Course & Med Decision Making: Course & Med Decision Making Pertinent Labs and Imaging studies reviewed. (See chart for details) The patient's labs show anemia of 9.9. She has a lactic acid of 3.3. She has been given 30 mL/kg of normal saline. Her urinalysis significant for urinary tract infection as well as yeast. I will treat her with Rocephin, levofloxacin, Diflucan. I will admit her to the hospital. I spoke with Dr. Matson and he has accepted the patient for admission at 2205. [] Dragon Disclaimer: Calvin Disclaimer: This electronic medical record was generated, in whole or in part, using a voice recognition dictation system. Departure Departure: Impression: Primary Impression: UTI (urinary tract infection) Disposition: ADMITTED INPATIENT Admitting Physician: Nataliia Matson Condition: STABLE Referrals: MAYNOR ARMSTRONG MD (PCP) IRMA MENDEZ DO January 31, 2022 21:04
[2022-01-31 21:30] LABS: BASO % 1 % (0-3); EOS # 0.2 x10^3/uL (0.0-0.7); EOS % 3 % (0-3); HEMOGLOBIN 9.9 g/dL (12.0-15.5); LYMPH # 1.1 x10^3/uL (1.0-4.8); LYMPH % 17 % (24-48); MEAN CORPUSCULAR HEMOGLOBIN 33 pg (25-35); MEAN CORPUSCULAR HGB CONC 34 g/dL (31-37); MEAN CORPUSCULAR VOLUME 98 fL (79-100); MONO # 0.8 x10^3/uL (0.0-1.1); MONO % 13 % (0-9); NEUT # 4.3 x10^3uL (1.8-7.7); NEUT % 67 % (31-73); PLATELET COUNT 149 x10^3/uL (140-400); RED BLOOD COUNT 2.96 x10^6/uL (3.50-5.40); RED CELL DISTRIBUTION WIDTH 21.1 % (11.5-14.5); WHITE BLOOD COUNT 6.5 x10^3/uL (4.0-11.0)
[2022-01-31 21:39] LABS: CALCIUM 8.2 mg/dL (8.5-10.1); CREATININE 0.7 mg/dL (0.6-1.0); POTASSIUM 3.8 mmol/L (3.5-5.1)
[2022-01-31 21:44] LABS: CLARITY,URINE HAZY; COLOR,URINE AMBER; GLUCOSE,URINE NEG (NEG)
[2022-01-31 21:44] LABS: ALBUMIN/GLOBULIN RATIO 0.6 (1.0-1.7); TOTAL PROTEIN 5.3 g/dL (6.4-8.2)
[2022-01-31 21:45] LABS: BACTERIA,URINE MANY /HPF (0-FEW); NITRITE,URINE NEG (NEG); SQUAMOUS EPITHELIAL CELL,UR MOD /LPF; WBC,URINE TNTC /HPF (0-4); YEAST,URINE PRESENT /HPF
[2022-01-31] MEDS ORDERED: FLUCONAZOLE 100 MG TABLET. PO ONE (22:00)
[2022-01-31] MEDS ORDERED: cefTRIAXone SODIUM 1 GM VIAL ONE (22:15)
[2022-01-31] MEDS ORDERED: IV NORMAL SALINE 1,000ML 1,000 ML IV ONE (22:15)
[2022-01-31] MEDS ORDERED: IV NORMAL SALINE 50ML 50 ML ONE (22:15)
[2022-01-31 22:18] LABS: PLT ESTIMATE ADEQUATE (ADEQUATE)
[2022-01-31 22:19] LABS: ANISOCYTOSIS MOD
--- NOTE | 2022-01-31 22:25 | RAD ---
CT scan abdomen and pelvis without contrast 01/31/2022 CLINICAL HISTORY: Abdominal distention. TECHNIQUE: Unenhanced, contiguous, 3 mm axial sections were obtained through the abdomen and pelvis. One or more of the following individualized dose reduction techniques were utilized for this study: 1. Automated exposure control. 2. Adjustment of the mA and/or kV according to patient size. 3. Use of iterative reconstruction technique. FINDINGS: Comparison study is dated 06/10/2020. Images through the lung bases demonstrate minimal dependent subsegmental atelectasis bilaterally. The re is mild cardiomegaly. Extensive coronary artery calcifications are seen. The liver has a decreased attenuation consistent with fatty infiltration. The spleen, visualized panc reas, adrenal glands and left kidney are within normal limits. A 2.1 cm rounded low-attenuation lesio n is seen involving the midpole the right kidney. This likely represents a cyst. No further imaging e valuation is recommended. Postsurgical changes are seen consistent with the patient's history of a Whipple procedure. Patient i s post cholecystectomy. Air is seen within the left intrahepatic bile ducts, unchanged. A small to mo derate amount of ascites is seen throughout the abdomen. Air and stool are seen throughout the colon. There is no evidence of bowel obstruction. A fat-containing right paracentral ventral hernia is seen which measures 6 cm in size. Images through the pelvis demonstrate a Elizabeth catheter within urinary bladder which is contracted. A large amount stool seen within the rectum and sigmoid colon. A moderate amount of free fluid is seen within the pelvis. An intramedullary arlene and hip screw are seen within the proximal right femur. Mini mal S-shaped curvature of the thoracolumbar spine is noted. Degenerative changes are seen involving t he thoracic and throughout the lumbar spine IMPRESSION: 1. Small to moderate amount of ascites. 2. No additional acute abnormality is seen. Electronically signed by: Rigo Jaramillo MD (01/31/2022 10:22 PM) [id number]
[2022-01-31] MEDS ORDERED: levoFLOXacin 250 MG TABLET PO ONE (22:45)
[2022-01-31] MEDS ORDERED: ONDANSETRON PF 4 MG/2 ML VIAL. IVP PRN (23:45)
[2022-02-01] MEDS ORDERED: DEXTROSE 50% 25 GM / 50ML DISP.SYRIN. IV ONE ×2 (01:14→01:15)
--- NOTE | 2022-02-01 02:00 | NUR ---
71 y/o female admitted to [facility] from ED per skyler for UTI. A et O X4. Educated on use of call light et orientation to facility.
[2022-02-01] MEDS ORDERED: ASCO500C PO (05:02)
[2022-02-01] MEDS ORDERED: CALC1TAB PO (05:02)
[2022-02-01] MEDS ORDERED: [UNRECOGNIZED DRUG - CODE] PO (05:02)
[2022-02-01] MEDS ORDERED: TRAM50TA PO (05:02)
[2022-02-01] MEDS ORDERED: POTA10TA12 PO (05:02)
[2022-02-01] MEDS ORDERED: FERR325T14 PO (05:02)
[2022-02-01] MEDS ORDERED: METF500T16 PO (05:02)
[2022-02-01] MEDS ORDERED: MIRT7.5T8 PO (05:02)
[2022-02-01] MEDS ORDERED: PANT40TA6 PO (05:02)
[2022-02-01] MEDS ORDERED: INSU100I13 SQ (05:02)
[2022-02-01] MEDS ORDERED: LACT10SO2 PO (05:02)
[2022-02-01] MEDS ORDERED: LACT10SO PO (05:02)
[2022-02-01] MEDS ORDERED: INSU100V31 SQ (05:02)
[2022-02-01] MEDS ORDERED: CHOL10004 PO (05:02)
--- NOTE | 2022-02-01 06:55 | NUR ---
Has rested quietly throughout remainder of shift. Cont. to deny discomfort this AM. No changes from previous assessment.
[2022-02-01 07:00] VITALS: BP 107/64
[2022-02-01 12:52] VITALS: BP 121/68
--- NOTE | 2022-02-01 18:33 | NUR ---
Pt A & O x4. Pt VS stable. Pt is NSR on the tele. Pt continues on contact precautions for VRE in urine. Pt has osman in place. Pt received medications as ordered. Pt denies pain/discomfort. Pt is room air. Pt is x 1 myah with ADLs and cares. Pt had BM this shift. Pt is NAKNEK noted. Pt is able to make needs known. fall precautions in place.
[2022-02-01 19:25] VITALS: BP 107/63
--- NOTE | 2022-02-01 20:45 | HP ---
DATE OF SERVICE: 02/01/2022 ADMIT DATE: 01/31/2022 HISTORY OF PRESENT ILLNESS: The patient is a 71-year-old female came in from the correction. The patient apparently has been having some diffuse abdominal pain. Previous history of pancreatic cancer, surgeries for removal of the pancreas. The patient has some nausea and vomiting. Turns out, she has a severe bladder infection, admitted for IV antibiotic therapy, elevated lactic acid, probably sepsis, continue on IV antibiotic therapy, fluids and monitoring accordingly. 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 She has vancomycin-resistant enterococci. FAMILY HISTORY: Positive for colon cancer, history of diabetes. ALLERGIES: The patient has no known allergies. MEDICATIONS FROM THE CARE HOME: Zyrtec, Flomax 0.4, Lipitor 20, tramadol, Remeron 7.5, lactulose 45 mg daily, calcium carbonate, potassium chloride, Glucerna, lactobacillus, Protonix, metformin, NovoLog insulin, ascorbic acid. SOCIAL HISTORY: The patient denies smoking, alcohol or drug use. The patient is a FULL CODE. REVIEW OF SYSTEMS: The patient generally is in good spirits. She denies any chest pain, shortness of breath, headaches, visual changes, diffuse abdominal discomfort or pain on urination. Neurologically, baseline for her. PHYSICAL EXAMINATION: GENERAL: Pleasant female considering what she has been through. The patient is alert. She is talkative and appropriate speech, answers questions. VITAL SIGNS: Blood pressure 120/70, respiratory rate 15, pulse 92, afebrile, 97% on room air. HEENT: Atraumatic, normocephalic. Eyes: PERRL. Mouth and throat show poor dentition. NECK: Supple. LUNGS: Diminished, but clear. CARDIOVASCULAR: Regular sinus rhythm, S1, S2. ABDOMEN: Soft, protuberant, belly button looks herniated, small amount of ascites. EXTREMITIES: Degenerative arthritis of the lumbar spine. No clubbing, cyanosis. Some musculoskeletal atrophy noted. LABORATORY DATA: Demonstrate the hemoglobin of 9 and 29, white count 6.5. AST 81, ALT of 62, alkaline phosphatase 177. Lactic acid 3. Sodium and potassium 138 and 3.8. Kidney function 0.7. The patient's urine as noted showed too numerous to count white blood cells being cultured. SARS negative. IMPRESSION: Pyelonephritis, history of pancreatic cancer with pancreatectomy, sepsis, urinary tract infections, severe protein malnutrition, urinary retention. The patient has a Elizabeth catheter and we will continue to monitor the patient accordingly, make further evaluation on her as indicated. Continue on IV antibiotic therapy, Rocephin and Levaquin. NICOLA/FIOR DR: Tay TID: [id number]
[2022-02-01] MEDS: LACTOBACILLUS RHAMNOSUS GG 1 CAPSULE. PO SCH (20:57)
[2022-02-01] MEDS: levoFLOXacin 500 MG TABLET PO SCH (20:58)
[2022-02-01] MEDS ORDERED: traMADol 50 MG TABLET PO PRN (22:30)
[2022-02-01 23:00] VITALS: BP 108/68
[2022-02-01] MEDS ORDERED: INSULIN GLARGINE SYRINGE. SQ SCH (23:00)
[2022-02-02 03:00] VITALS: BP 112/68
--- NOTE | 2022-02-02 06:26 | NUR ---
Has rested quietly throughout NOC. Urine clear orange tea colored with sediment. No further changes from previous assessment.
[2022-02-02] MEDS: PANTOPRAZOLE 40 MG TABLET. PO SCH (07:58)
[2022-02-02] MEDS: CALCIUM CARB/VIT D3 500/200 TABLET PO SCH ×2 (07:59→20:25)
[2022-02-02] MEDS: INSULIN LISPRO 300 UNITS/3 ML VIAL. SQ SCH ×3 (07:59→17:00)
[2022-02-02] MEDS: LACTOBACILLUS RHAMNOSUS GG 1 CAPSULE. PO SCH ×2 (07:59→20:24)
[2022-02-02] MEDS: metFORMIN 500 MG TABLET PO SCH ×2 (08:00→17:00)
[2022-02-02] MEDS: FERROUS SULFATE 325 MG TABLET. PO SCH ×2 (08:00→20:24)
[2022-02-02] MEDS: CETIRIZINE HCL 10 MG TABLET PO SCH (08:00)
[2022-02-02] MEDS: TAMSULOSIN 0.4 MG CAP.ER.24H. PO SCH (08:01)
[2022-02-02] MEDS: CHOLECALCIFEROL (VITAMIN D3) 1,000 UNIT TABLET PO SCH (08:01)
[2022-02-02] MEDS: POTASSIUM CHLORIDE 10 MEQ TABLET.ER. PO SCH (08:01)
[2022-02-02] MEDS: ASCORBIC ACID 500 MG TABLET PO SCH ×2 (08:01→20:25)
[2022-02-02] MEDS: ASPIRIN CHEWABLE 81 MG TABLET. PO SCH (08:02)
[2022-02-02] MEDS ORDERED: NUT TX GLUC INTOL LF SOY PO SCH (09:00)
[2022-02-02] MEDS ORDERED: FIBER PO SCH (09:00)
[2022-02-02] MEDS ORDERED: LACTULOSE PO SCH ×2 (09:00)
[2022-02-02] MEDS ORDERED: LACTOBACILLUS RHAMNOSUS GG 1 CAPSULE. PO SCH (09:00)
[2022-02-02 09:06] VITALS: BP 114/58
--- NOTE | 2022-02-02 10:08 | NUR ---
Nursing note PT in bed, verbalized no pain or discomfort. Morning assessments done, medications administered per doctors orders. Vitals assessed and documented. Meal try handed to Pt. PT verbalized no other needs, bed low, lucked. Call light within reach. Will continue to monitor.
[2022-02-02] MEDS: DEXTROSE 50% 25 GM / 50ML DISP.SYRIN. IV PRN (11:50)
[2022-02-02] MEDS ORDERED: GLUCAGON,HUMAN RECOMBINANT 1 MG KIT. IV ONE (12:00)
--- NOTE | 2022-02-02 13:21 | NUR ---
Nursing note PT in bed, blood glucose checked and was 19, PT verbalized no dizziness or weakness. PT was able to understand what was happening, pulse 95 and respiration 18. Doctor notified of clients blood sugar. Orders for D5 and Glocugon in. Medications administered per doctors orders, PT given one cup of orange juice and one cup of apple juice administered. Blood sugar reassessed within 10minutes and was 189. PT sugar reassessed 15minutes later and was 166. PT cleaned. linens changed. Insulin non-administered due to fluctuations in clients blood sugar and with verification from the pharmacy. PT in bed, verbalized no pain, discomfort or dizziness. Meal try given to client. Critical results documented in critical results tab. Bed low, call light within reach.
[2022-02-02] MEDS: LACTULOSE 20 GM/30 ML SOLUTION. PO SCH ×2 (14:00→20:25)
--- NOTE | 2022-02-02 14:11 | NUR ---
Nursing note PT had two bowel movements within 10hours of care. So lactulose was held. PT in bed, bed low, call light within reach.
[2022-02-02 15:43] VITALS: BP 116/61
[2022-02-02 19:25] VITALS: BP 96/58
[2022-02-02] MEDS: ATORVASTATIN CALCIUM 20 MG TABLET PO SCH (20:25)
[2022-02-02] MEDS: MIRTAZAPINE 7.5 MG TABLET. PO SCH (20:25)
[2022-02-02] MEDS: levoFLOXacin 500 MG TABLET PO SCH (20:26)
[2022-02-02 23:00] VITALS: BP 108/78
--- NOTE | 2022-02-03 04:12 | PN ---
DATE: 02/02/2022 SUBJECTIVE: A 71-year-old female with a history of pancreatic cancer. The patient has been having problems with low blood sugars. I believe the tumor is reoccurring and unfortunately taking up her sugar even after eating and bolusing her sugar went down to 19 and then on glucagon and D50 it went up to 189. Lactic acid 3.1. The patient is markedly sedated. She continues to receive IV antibiotic therapy. She will be made a no code. OBJECTIVE: VITAL SIGNS: Blood pressure 110/60, respiratory rate 16, pulse 80, afebrile. GENERAL: The patient is alert, mild marginally. She is very lethargic, very cachectic appearing, very dry. LUNGS: Diminished throughout, poor movement of air. CARDIOVASCULAR: Regular sinus rhythm. ABDOMEN: Soft, nontender, scaphoid. EXTREMITIES: Show marked musculoskeletal atrophy. IMPRESSION: History of pyelonephritis pancreatic cancer with pancreatectomy, sepsis, urinary tract infection, urinary retention. PLAN: Continue to monitor the patient. She would not survive a CPR if needed. ALONSO DR: Tay TID: [id number]
[2022-02-03 05:00] VITALS: BP 111/66
--- NOTE | 2022-02-03 05:55 | NUR ---
AM assessment completed. Denies discomfort this AM. Pt. with 150ml of tea colored urine throughout shift. Encouraged pt. to drink. Pt. verbalized understanding. Fresh water and orange juice at bedside. Pt, has had 4 soft med stools in 11 hour shift. Lactulose was held last NOC. No changes from previous assessment.
[2022-02-03 07:45] VITALS: BP 112/69
[2022-02-03] MEDS: DEXTROSE 50% 25 GM / 50ML DISP.SYRIN. IV PRN (08:00)
[2022-02-03] MEDS ORDERED: DEXTROSE ORAL GEL 15 GM TUBE. PO PRN (08:00)
[2022-02-03] MEDS: INSULIN LISPRO 300 UNITS/3 ML VIAL. SQ SCH ×3 (08:00→17:00)
[2022-02-03] MEDS: CALCIUM CARB/VIT D3 500/200 TABLET PO SCH ×2 (08:39→20:45)
[2022-02-03] MEDS: metFORMIN 500 MG TABLET PO SCH ×2 (08:39→17:00)
[2022-02-03] MEDS: TAMSULOSIN 0.4 MG CAP.ER.24H. PO SCH (08:40)
[2022-02-03] MEDS: LACTOBACILLUS RHAMNOSUS GG 1 CAPSULE. PO SCH ×2 (08:40→20:45)
[2022-02-03] MEDS: FERROUS SULFATE 325 MG TABLET. PO SCH ×2 (08:40→20:45)
[2022-02-03] MEDS: ASCORBIC ACID 500 MG TABLET PO SCH ×2 (08:40→20:45)
[2022-02-03] MEDS: PANTOPRAZOLE 40 MG TABLET. PO SCH (08:40)
[2022-02-03] MEDS: CETIRIZINE HCL 10 MG TABLET PO SCH (08:40)
[2022-02-03] MEDS: POTASSIUM CHLORIDE 10 MEQ TABLET.ER. PO SCH (08:40)
[2022-02-03] MEDS: ASPIRIN CHEWABLE 81 MG TABLET. PO SCH (08:40)
[2022-02-03] MEDS: LACTULOSE 20 GM/30 ML SOLUTION. PO SCH ×3 (08:42→20:46)
[2022-02-03] MEDS: CHOLECALCIFEROL (VITAMIN D3) 1,000 UNIT TABLET PO SCH (08:42)
[2022-02-03 09:20] LABS: CALCIUM 8.3 mg/dL (8.5-10.1); CREATININE 0.8 mg/dL (0.6-1.0); GFR 70.3; POTASSIUM 3.9 mmol/L (3.5-5.1)
--- NOTE | 2022-02-03 10:24 | NUR ---
Nursing note PT in bed, verbalized no pain or discomfort. Blood sugar assessed and was 42. 1 cups of orange juice and 2 cups of cranberry juice administered. A tub of Glutose 15 oral glucose gel administered. Blood sugar reassessed and was 41. A cup of orange juice administered and 2 table spoons of Glutose. Blood sugar reassessed and was 74. D5 held due to change in PT blood sugar. Morning assessments done, vitals assessed and documented. Medications administered per doctors orders. Meal try given to Pt. Insulin non-administered due to the client blood sugar levels. Blood sugar reassessed after PT had breakfast and was 189. Bed low, call light within reach, PT watching TV. PT verbalized no other needs. Will continue to monitor.
[2022-02-03 11:42] VITALS: BP 119/65
[2022-02-03 15:55] VITALS: BP 121/64
[2022-02-03 18:07] VITALS: BP 115/70
[2022-02-03] MEDS: levoFLOXacin 500 MG TABLET PO SCH (20:45)
[2022-02-03] MEDS: MIRTAZAPINE 7.5 MG TABLET. PO SCH (20:45)
[2022-02-03] MEDS: ATORVASTATIN CALCIUM 20 MG TABLET PO SCH (20:45)
[2022-02-03 23:18] VITALS: BP 119/66
[2022-02-04] MEDS: PANTOPRAZOLE 40 MG TABLET. PO SCH (05:36)
[2022-02-04 05:58] VITALS: BP 119/55
[2022-02-04] MEDS: INSULIN LISPRO 300 UNITS/3 ML VIAL. SQ SCH (07:28)
[2022-02-04] MEDS: LACTOBACILLUS RHAMNOSUS GG 1 CAPSULE. PO SCH (08:21)
[2022-02-04] MEDS: TAMSULOSIN 0.4 MG CAP.ER.24H. PO SCH (08:22)
[2022-02-04] MEDS: ASPIRIN CHEWABLE 81 MG TABLET. PO SCH (08:22)
[2022-02-04] MEDS: CALCIUM CARB/VIT D3 500/200 TABLET PO SCH (08:22)
[2022-02-04] MEDS: ASCORBIC ACID 500 MG TABLET PO SCH (08:22)
[2022-02-04] MEDS: metFORMIN 500 MG TABLET PO SCH (08:22)
[2022-02-04] MEDS: FERROUS SULFATE 325 MG TABLET. PO SCH (08:22)
[2022-02-04] MEDS: CETIRIZINE HCL 10 MG TABLET PO SCH (08:22)
[2022-02-04] MEDS: POTASSIUM CHLORIDE 10 MEQ TABLET.ER. PO SCH (08:22)
[2022-02-04] MEDS: LACTULOSE 20 GM/30 ML SOLUTION. PO SCH (08:23)
[2022-02-04] MEDS: CHOLECALCIFEROL (VITAMIN D3) 1,000 UNIT TABLET PO SCH (08:23)
[2022-02-04] MEDS ORDERED: LEVO500T9 PO (09:34)
[2022-02-04] MEDS ORDERED: LACT10SO PO (09:34)
[2022-02-04] MEDS ORDERED: INSU100I11 SQ (09:34)
--- NOTE | 2022-02-04 09:35 | DISCH ---
DISCHARGE ORDERS DISCHARGE DATE: February 04, 2022 FINAL DIAGNOSIS UTI pyelonephritis CONDITION AT DISCHARGE: Stable Code Status: Full SNF STAY <30 DAYS: Yes HOSPICE: No HOSPICE EVALUATE & TREAT: No POST DISCHARGE ORDERS: ACTIVITY ORDERS: Activity as tolerated WEIGHT BEARING STATUS: No restrictions DIET AFTER DISCHARGE: ADA CHECKS AFTER DISCHARGE: CHECKS AFTER DISCHARGE: Check blood sugar, ac/hs TREATMENT/EQUIPMENT ORDERS: ADAPTIVE EQUIPMENT NEEDED: None RESPIRATORY EQUIPMENT: Oxygen DISCHARGE MEDICATIONS: Home Meds Active Scripts Tamsulosin Hcl (FLOMAX) 0.4 Mg Cap.er.24h, 0.4 MG PO DAILY for urine flow for 30 Days, #30 CAP.SR 5 Refills Prov:DARREN WAITE MD 10/20/20 Reported Medications Nut.tx.gluc Intol,Lf,Soy/Fiber (Glucerna 1.2 Casey Liquid) 237 Ml Liquid, 237 ML PO BID for PCM, LIQUID 02/01/22 Tramadol Hcl (TRAMADOL HCL) 50 Mg Tablet, 50 MG PO PRN Q4HRS PRN for PAIN, TAB 02/01/22 Potassium Chloride (POTASSIUM CHLORIDE ) 10 Meq Tab.er.prt, 10 MEQ PO DAILY for SUPPLEMENT, TAB.SR 02/01/22 Pantoprazole Sodium (PANTOPRAZOLE SODIUM) 40 Mg Tablet.dr, 1 TAB PO DAILY07 for Heartburn, #30 TAB 3 Refills 02/01/22 Calcium Carbonate/Vitamin D3 (OYSTER SHELL 500 MG + VIT D TB) 1 Each Tablet, 1 EACH PO BID for Supplementation, TAB 02/01/22 Insulin Aspart (NOVOLOG) 100 Unit/1 Ml Vial, 5 UNIT SQ TIDAC for Diabetes, EACH 02/01/22 Mirtazapine (MIRTAZAPINE) 7.5 Mg Tablet, 1 TAB PO QHS for Appetite stimulant for 30 Days, #30 TAB 0 Refills 02/01/22 Metformin Hcl (METFORMIN HCL) 500 Mg Tablet, 2 TAB PO BID for Diabetes, #60 TAB 3 Refills 02/01/22 Lactulose (LACTULOSE) 10 Gm/15 Ml Solution, 45 ML PO TID for Constipation, #2700 ML 10 Refills 02/01/22 Lactulose (LACTULOSE) 10 Gm/15 Ml Solution, 45 ML PO DAILY for constipation for 30 Days, #450 ML 0 Refills 02/01/22 Insulin Glargine,Hum.rec.anlog (LANTUS SOLOSTAR) 100 Unit/1 Ml Insuln.pen, 15 UNIT SQ QHS for Diabetes, #15 ML 3 Refills 02/01/22 Ferrous Sulfate (FERROUS SULFATE) 325 Mg Tablet, 1 TAB PO BID for Anemia, #60 TAB 3 Refills 02/01/22 Cholecalciferol (Vitamin D3) (Vitamin D3 ) 25 Mcg Tablet, 25 MCG PO DAILY for SUPPLEMENT, TAB 1,000 UNITS = 25 MCG 02/01/22 Ascorbic Acid (VITAMIN C) 500 Mg Capsule.er, 250 MG PO BID for Anemia, CAP.SR 02/01/22 Lactobacillus Acidophilus (PROBIOTIC) 1 Each Capsule, 1 EACH PO DAILY for PROBIOTIC LAST DOSE GIVEN: DATE: TODAY TIME: AM NEXT DOSE DUE: DATE: TOMORROW TIME: AM 10/03/17 Cetirizine Hcl (CETIRIZINE HCL) 10 Mg Tablet, 10 MG PO DAILY for ALLERGIES LAST DOSE GIVEN: DATE: TODAY TIME: AM NEXT DOSE DUE: DATE: TOMORROW TIME: AM 10/03/17 Atorvastatin Calcium (ATORVASTATIN CALCIUM) 20 Mg Tablet, 20 MG PO QHS for FOR CHOLESTEROL LAST DOSE GIVEN: DATE: YESTERDAY TIME: BEDTIME NEXT DOSE DUE: DATE: TODAY TIME: BEDTIME 10/03/17 Aspirin (ASPIRIN) 81 Mg Tab.chew, 81 MG PO DAILY for BLOOD THINNER LAST DOSE GIVEN: DATE: TODAY TIME: AM NEXT DOSE DUE: DATE: TOMORROW TIME: AM 10/03/17 DARREN WAITE MD February 04, 2022 09:35
--- NOTE | 2022-02-04 10:26 | PN ---
SUBJECTIVE: A 71-year-old female apparently positive for bacteremia and sepsis. She is resting fairly comfortably, seems to be in much better mood today. She is much more alert. The bacteria shows Klebsiella was isolated out of her urine and probably out of her bladder, positive blood cultures. The patient sensitive to Rocephin. As noted, she feels much better. OBJECTIVE: VITAL SIGNS: Blood pressure 120/60, respiratory rate 16, pulse 70, afebrile, room air 95. GENERAL: The patient is alert and oriented, much more alert. LUNGS: Diminished, but clear. CARDIOVASCULAR: Regular sinus rhythm. ABDOMEN: Soft, nontender. EXTREMITIES: No clubbing, cyanosis or edema. NEUROLOGIC: The patient is alert and baseline there. IMPRESSION: Sepsis, bacteremia, Klebsiella pneumoniae, urinary tract infection, continued on IV antibiotic therapy and hopefully discharge back to the nursing facility. JOSEPHINE/RADHA/SNAA DR: Tay TID: [id number]
[2022-02-04 11:08] VITALS: BP 109/63
--- NOTE | 2022-02-04 12:19 | NUR ---
Discharge Note Patient discharged at this time via wheelchair. IV and osman catheter removed. Patient transported via [facility] staff. VSS @ time of dicharge. Patient verbalized understanding of dicharge instructions. All belongings sent with patient.
== END 2022-02-04 12:21 | DRG 871 ==
LOC: ER 20:51 → 1 SOUTH 23:36
PROVIDERS: ADMIT Family Medicine; ATTEND Family Medicine
DX: A41.59 Other Gram-negative sepsis (principal); E43 Unspecified severe protein-calorie malnutrition; C25.9 Malignant neoplasm of pancreas, unspecified; N12 Tubulo-interstitial nephritis, not specified as acute or chronic; R18.8 Other ascites; E11.9 Type 2 diabetes mellitus without complications; E78.00 Pure hypercholesterolemia, unspecified; F02.80 Dementia in other diseases classified elsewhere, unspecified severity, without behavioral disturbance, psychotic disturbance, mood disturbance, and anxiety; G30.9 Alzheimer's disease, unspecified; I11.0 Hypertensive heart disease with heart failure; I25.10 Atherosclerotic heart disease of native coronary artery without angina pectoris; I50.9 Heart failure, unspecified; Z80.0 Family history of malignant neoplasm of digestive organs; Z83.3 Family history of diabetes mellitus; Z85.07 Personal history of malignant neoplasm of pancreas; Z86.73 Personal history of transient ischemic attack (TIA), and cerebral infarction without residual deficits; F41.9 Anxiety disorder, unspecified
CPT/HCPCS: 36415; 74176; 80048; 80053; 81001; 82947; 83605; 85025; 85379; 87040; 87077; 87086; 87186; 87426; 96365; 96366; 96375; J0696; J1610; J1815; U0003; 99285-25; J7030